=== PATIENT | male | born 1970 | race Caucasian/White ===

== ENCOUNTER 2024-03-22 03:37 | Inpatient (IN) ==
--- NOTE | 2024-03-22 03:53 | Emergency Department Note ---
Impression & Plan Acute AR ED Provider Note NAME: DANUTA FISHER AGE: 53 SEX: Male INFORMANT: Patient and EMS ED PROVIDER(S): Rusty Carson MD CHIEF COMPLAINT: Chest pain PLAN: Disposition: Admitted Outpatient prescription management: none Referral: None MEDICAL DECISION MAKING: Patient presented because of acute chest pain. EMS was concerned about ACS. Prehospital ECG was reviewed. Compared to prior and there was concerning change anteriorly. Patient was evaluated immediately upon arrival. I did review the prehospital course with EMS. Patient was still uncomfortable. He was treated with additional Zofran and fentanyl for symptom control. Nitrates were avoided due to his sildenafil use. Heart alert was initiated. Istat unremarkable. Consultation was made with Dr. Shaheed Dennison of the [facility] service. Patient was evaluated in the ER for further management. Dr. Bermudez of Inte[facility] promptly evaluated the patient in the ER. Agreed with assessment and took the patient to the clam bed laborer for further treatment. Care/management discussed with: living manager Level of care consideration(s): After review of the information above and other included data, I feel the patient requires escalation of care to admission Triage Nursing notes: reviewed and agree them. Vital Signs: reviewed and remarkable for hypertension Additional History obtained from: [employer] cardiac prehospital course as below. Chronic Medical/Social Conditions affecting care: Hypertension, tobacco abuse, diabetes Prior/ Outside/ External records reviewed: Prior PCP note from February reviewed. Hypertension, diabetes, and smoking cessation visit. Differential Diagnosis: Cardiac ischemia, aortic dissection, pulmonary embolism, pneumothorax, pneumonia, pericarditis, myocarditis, esophageal rupture, GERD, cholecystitis, pancreatitis, musculoskeletal, as well as other pathologies. Diagnostics, independently interpreted by me: ECG: Twelve-lead ECG reveals a normal sinus rhythm at [address] bpm. There is acute [address] ovation anteriorly. This is new compared to 09 November 2023. Cardiac Monitoring: Cardiac monitoring ordered by me: The patient was placed on continuous cardiac monitoring and observed. It revealed a normal sinus rhythm at 66 beats per minute without ectopy or evidence of dysrhythmia. Medical decision rules: none Imaging studies: Chest x-ray. Findings: A chest x-ray was performed and revealed no pneumothorax, effusion, infiltrate, pulmonary edema, free air under the diaphragm, or wide mediastinum. Impression: No acute disease. HPI: 53 year old Male arrives for evaluation of chest pain. This started at 0200 hrs. He described as heartburn. Rated in the left shoulder. Patient was diaphoretic. He contacted EMS. He was evaluated by EMS and an ECG was performed. They were concerned about possible ST elevation anteriorly. He was given fentanyl and aspirin. Patient does have prescription sildenafil and they avoided nitrates. Patient did admit to drinking some alcohol this evening. Patient denies cardiac history. He is a smoker. Pt denies LOC, headache, fevers, chills, visual changes, neck pain, breathing difficulties, nausea, vomiting, abdominal pain, back pain, melena, hematochezia, urinary symptoms, numbness, weakness, lymphadenopathy, rash, or other complaints.. PAST MEDICAL HISTORY: See Below, hypertension, tobacco abuse PAST SURGICAL HISTORY: See Below, SOCIAL HISTORY: See Below, drinks alcohol HOME MEDICATIONS: See Below ALLERGIES: See Below VITALS: See Below PHYSICAL EXAMINATION: GENERAL: Awake, alert, diaphoretic-appearing, in no distress HENT: Normocephalic, atraumatic. Oropharynx unremarkable. EYES: Normal conjunctiva. Sclera non-icteric. NECK: Inspection normal. Non-tender. Supple. No nuchal rigidity. FROM. No masses. RESPIRATORY: Clear to auscultation. No wheezes. No rales. Normal respiratory effort. CARDIAC: Normal rate. Normal rhythm. No murmurs. No rubs. Extremities warm and well perfused. Pulses equal. No JVD. GI: Soft, non-distended. No tenderness to palpation. No rebound or guarding. No masses. RECTAL: Deferred. MUSCULOSKELETAL: Atraumatic. Chest examination reveals no tenderness. The back is symmetrical on inspection without obvious abnormality. There is no CVA tenderness to palpation. No joint edema. LOWER EXTREMITIES: Calves are equal size bilaterally and non-tender. No edema. No discoloration. NEURO: Normal sensorium. No sensory or motor deficits noted. SKIN: No rash or jaundice noted. PROCEDURES: none CRITICAL CARE: I have personally spent 35 minutes of critical care time in the direct management of this patient. This includes bedside care, interpretation of diagnostic studies, and testing, discussion with consultants, patient, and other required patient management activities. These minutes are in excess of all separately billable procedures. OBSERVATION NOTE: none Past Med/Surg History Problem List (Updated 03/22/24 @ 11:20 by Cuong Courtney MD) Tobacco abuse CAD (coronary artery disease) STEMI (ST elevation myocardial infarction) Acute AR (Acute) Type 2 diabetes mellitus (Chronic) Chronic sinusitis (Chronic) GERD (gastroesophageal reflux disease) (Chronic) Hypertension (Chronic) Hyperlipidemia (Chronic) Sensorineural hearing loss (SNHL) of both ears (Chronic) Medical History (Updated 03/22/24 @ 11:20 by Cuong Courtney MD) Pheochromocytoma s/p resection October 2023 Surgical History History of dental surgery Family History Father Cerebral hemorrhage Hypertension Grandmother (Maternal) Diabetes Myocardial infarction Grandfather (Paternal) Myocardial infarction Denies family history of Ovarian cancer Prostate cancer Breast cancer Colorectal cancer Social History (Updated 02/29/24 @ 09:40 by Danielle Marquez LPN) Smoking Status: Current every day smoker Tobacco Type: Cigarettes Age Started Using Tobacco: 19; packs per day: 1; Cigarettes Per Day: 1 carton a week; Second Hand Exposure: Yes; Do You Dip or Chew Tobacco: No; Tobacco Cessation Education Requested by Patient: No Hx Alcohol Use: Yes Alcohol type: beer Hx Substance Use: No Preferred Language: Iraqi Communication Ability: Effective Crna Required: No Beliefs That Will Affect Care: None marital status: Current Living Situation: Alone Current Living Situation Comment: lives at home by self current occupational status: employed 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 Other Information That Helps Us Care for You: No Feels Safe at Home: Yes Safety Concerns: Feels Safe At This Time Diet: diabetic, low salt and regular caffeine: Yes Dental Care, Regularly: Yes Physical Activity Frequency: 1-2 Times per Week Seatbelt Use: always Sunscreen Use: No Assistive Devices: Denture - Upper, Denture - Lower, Glasses and Hearing Aid - Bilateral Allergies Allergies Allergy/AdvReac Type Severity Reaction Status Date / Time No Known Allergies Allergy Verified 02/29/24 09:31 Home Meds Home Medications Medication Instructions Recorded Confirmed famotidine 40 mg tablet 40 mg PO QPM 03/22/24 03/22/24 Previous Rx's Medication Instructions Recorded metformin 500 mg tablet,extended 500 mg PO DAILY #90 tabs 09/10/23 release 24 hr lisinopril 10 mg tablet 10 mg PO DAILY #90 tabs 11/06/23 doxazosin 1 mg tablet 1 mg PO QPM #30 tabs 11/13/23 pantoprazole 40 mg tablet,delayed 40 mg PO DAILY #90 tabs 11/28/23 release (Protonix) rosuvastatin 20 mg tablet 20 mg PO DAILY #90 tabs 01/31/24 sildenafil 50 mg tablet See Rx Instructions PO DAILY PRN 02/29/24 sexual activity #10 tabs varenicline 0.5 mg (11)-1 mg (42) See Rx Instructions .Route 02/29/24 tablets in a dose pack (Chantix .COMPLEX #53 ea Starting Month Box) Results & Data (ED) Vital Signs Vital Signs - 24 hr 03/22/24 03:41 03/22/24 03:41 03/22/24 03:41 Temperature 36.5 C Temperature Source Oral Pulse Rate 77 Pulse Rate from SpO2 Sensor Pulse Rhythm Respiratory Rate 18 Respiratory Effort / Characteristics Non-Labored Spontaneous Respiratory Depth Normal Blood Pressure 158/102 H Blood Pressure Mean 120 Blood Pressure Position Sitting Pulse Oximetry 94 Oxygen Delivery Method Nasal Cannula Room Air Nasal Cannula Oxygen Flow Rate 2 2 Sepsis Recent Fever Within 48 Hours No Sepsis New/Unexplained Change in Mental Status N/A Sepsis Action Taken by Nursing No Action Required 03/22/24 03:41 03/22/24 03:48 03/22/24 03:55 Temperature Temperature Source Pulse Rate 66 86 73 Pulse Rate from SpO2 Sensor Pulse Rhythm Regular Respiratory Rate 15 18 Respiratory Effort / Characteristics Respiratory Depth Blood Pressure 158/102 H Blood Pressure Mean 120 Blood Pressure Position Pulse Oximetry 96 96 Oxygen Delivery Method Nasal Cannula Nasal Cannula Oxygen Flow Rate 2 2 Sepsis Recent Fever Within 48 Hours Sepsis New/Unexplained Change in Mental Status Sepsis Action Taken by Nursing 03/22/24 04:00 Temperature Temperature Source Pulse Rate 66 Pulse Rate from SpO2 Sensor 66 Pulse Rhythm Respiratory Rate 16 Respiratory Effort / Characteristics Respiratory Depth Blood Pressure 165/114 H Blood Pressure Mean 131 Blood Pressure Position Pulse Oximetry 96 Oxygen Delivery Method Nasal Cannula Oxygen Flow Rate 2 Sepsis Recent Fever Within 48 Hours Sepsis New/Unexplained Change in Mental Status Sepsis Action Taken by Nursing Laboratory Data 03/22/24 03:45 03/22/24 03:45 Lab Results 03/22/24 03/22/24 03/22/24 Range/Units 03:45 03:50 04:39 WBC 15.49 H (4.8-10.8) K/ul RBC 5.06 (4.70-6.10) M/uL Hgb 15.9 (14.0-18.0) g/dl POC Hgb 15.3 (14.0-18.0) g/dl Hct 44.3 (42.0-52.0) % POC Hct 45 (42-52) % MCV 87.5 (80.0-100.0) fL MCH 31.4 (25.0-34.0) pg MCHC 35.9 (32.0-36.0) g/dL RDW Std Deviation 39.1 (36.4-46.3) fL RDW Coeff of Jocelin 12.3 (11.5-14.5) % Plt Count 256 (130-400) K/uL MPV 9.8 (9.4-12.4) fL Immature Gran % (Auto) 0.5 % Neut % (Auto) 71.8 % Lymph % (Auto) 18.7 % Edwards % (Auto) 7.2 % Eos % (Auto) 1.4 % Baso % (Auto) 0.4 % Neut # (Auto) 11.12 H (1.40-6.50) K/uL Lymph # (Auto) 2.90 (1.20-3.40) K/uL Edwards # (Auto) 1.12 H (0.11-0.59) K/uL Eos # (Auto) 0.21 (0.00-0.50) K/uL Baso # (Auto) 0.06 (0.00-0.20) K/uL Immature Gran # (Auto) 0.08 (0.01-0.20) K/uL PT 10.5 (9.0-12.0) Seconds INR 1.0 (0.9-1.1) APTT 25 (21-31) Seconds PTT Ratio 0.9 Activ Coag Time Kaolin 214 H (94-140) SECONDS POC Sodium 137 (135-144) mmol/L Sodium 136 (136-145) mmol/L POC Potassium 4.3 (3.3-5.0) mmol/L Potassium 4.3 (3.5-5.1) mmol/L POC Chloride 102 (101-112) mmol/L Chloride 102 (98-107) mmol/L Carbon Dioxide 26 (21-32) mmol/L POC Total CO2 25 (24-31) mmol/L Anion Gap 8 (3-11) POC Anion Gap 16.0 (16-25) mmol/L POC BUN 15 (7-18) mg/dl BUN 16 (6-23) mg/dl Creatinine 1.25 (0.6-1.4) mg/dl POC Creatinine 1.2 (0.6-1.3) mg/dl Est Cr Clr Drug Dosing 78.1 ml/min Est GFR ( Amer) 76.2 ml/min Est GFR (Non-Af Amer) 65.8 ml/min BUN/Creatinine Ratio 12.8 (10-20) Glucose 181 H (70-99(Fasting)) mg/dl POC Glucose (other) 178 H (70-99) mg/dl Calcium 9.9 (8.6-10.3) mg/dl POC Ioniz Calcium Myles 1.18 (1.12-1.32) mmol/l Phosphorus 3.8 (2.5-4.9) mg/dl Magnesium 1.9 (1.7-2.4) mg/dl Total Bilirubin 0.5 (0.2-1.0) mg/dl AST 20 (13-39) U/L ALT 17 (7-52) U/L Alkaline Phosphatase 85 (34-104) U/L Troponin I High Sens 27.5 H (0-20) pg/ml Total Protein 7.8 (6.0-8.3) gm/dl Albumin 4.9 (3.4-5.0) gm/dl Globulin 2.9 (2.5-4.0) gm/dl Albumin/Globulin Ratio 1.7 (0.9-2) Lipase 13 (11-82) U/L Ethyl Alcohol mg/dL < 10.0 (<10.0) mg/dl Administered Medications Acetaminophen (Acetaminophen 325 Mg Tab) 650 mg PO Q4H PRN PRN Reason: pain/fever Stop: 04/21/24 05:40 Last Admin: 03/22/24 16:23 Dose: 650 mg Documented By: AMS Aspirin (Aspirin 81 Mg Ectab) 81 mg PO [facility] Stop: 04/21/24 08:59 Last Admin: 03/22/24 08:25 Dose: 81 mg Documented By: SAGAR Carvedilol (Carvedilol 6.25 Mg Tab) 6.25 mg PO BIDM [facility] Stop: 04/21/24 07:59 Last Admin: 03/22/24 16:24 Dose: 6.25 mg Documented By: Admin: 03/22/24 08:25 Dose: 6.25 mg Documented By: SAGAR Insulin Aspart (Insulin Aspart Per Unit Charge) 0 units SC ACHS [facility] Stop: 04/21/24 07:29 Last Admin: 03/22/24 12:01 Dose: Not Given Documented By: Admin: 03/22/24 08:02 Dose: Not Given Documented By: SAGAR Lisinopril (Lisinopril 10 Mg Tab) 10 mg PO DAILY [facility] Stop: 04/21/24 08:59 Last Admin: 03/22/24 08:41 Dose: 10 mg Documented By: SAGAR Pantoprazole Sodium (Pantoprazole 40 Mg Tab) 40 mg PO DAILY [facility] Stop: 04/21/24 08:59 Last Admin: 03/22/24 08:26 Dose: 40 mg Documented By: SAGAR Rosuvastatin Calcium (Rosuvastatin Calcium 20 Mg Tab) 40 mg PO QAM [facility] Stop: 04/21/24 08:59 Last Admin: 03/22/24 08:25 Dose: 40 mg Documented By: SAGAR Discontinued Medications Eptifibatide (Eptifibatide 2 Mg/Ml 10 Ml Vial ([employer]ist Use Only)) Confirm Administered Dose 40 mg IV .STK-MED ONE Stop: 03/22/24 04:37 Last Admin: 03/22/24 05:06 Dose: 16 mg Documented By: MARLEY Eptifibatide (Eptifibatide 0.75 Mg/Ml 75mg Vial ([employer] Scientist Use Only)) Confirm Administered Dose 75 mg IV .STK-MED ONE Stop: 03/22/24 04:37 Last Increment: 03/22/24 05:06 Dose: 13.6 mg Documented By: MARLEY Fentanyl Citrate (Fentanyl Citrate Pf 100 Mcg/2 Ml Vial) 50 mcg IV NOW [facility] Stop: 03/22/24 03:49 Last Admin: 03/22/24 04:04 Dose: 50 mcg Documented By: BRIDGET Fentanyl Citrate (Fentanyl Citrate Pf 100 Mcg/2 Ml Vial) Confirm Administered Dose 100 mcg .ROUTE .STK-MED ONE Stop: 03/22/24 04:08 Last Increment: 03/22/24 05:20 Dose: 25 mcg Documented By: MARLEY Heparin Sodium (Porcine) (Heparin (Porcine) 1000 Unit/Ml 10 Ml ([employer]ist Use Only)) Confirm Administered Dose 10,000 units .ROUTE .STK-MED ONE Stop: 03/22/24 04:08 Last Admin: 03/22/24 05:04 Dose: 5,000 units Documented By: MARLEY Heparin Sodium/Sodium Chloride (Heparin In Nss Infusion 1000 Unit/500 Ml (2 U/Ml) Bag) Confirm Administered Dose 3,000 units IV .STK-MED ONE Stop: 03/22/24 04:08 Last Admin: 03/22/24 06:45 Dose: Not Given Documented By: [id number] Nitroglycerin/Dextrose (Nitroglycerin/D5w 100 Mcg/Ml) 250 mls @ 0 mls/hr IV .Q0M ANDREI; Protocol Stop: 04/21/24 06:29 Last Titration: 03/22/24 09:09 Dose: Infused Documented By: Titration: 03/22/24 07:18 Dose: 0 mcg/min, 0 mls/hr Documented By: [id number] Co-signed By: KATE Titration: 03/22/24 06:42 Dose: 0 mcg/min, 0 mls/hr Documented By: [id number] Admin: 03/22/24 06:20 Dose: 50 mcg/min, 30 mls/hr Documented By: [id number] Co-signed By: CLC Eptifibatide (Integrilin) 75 mg in 100 mls @ 13.477 mls/hr IV .Q7H26M ANDREI Stop: 03/22/24 11:59 Last Infusion: 03/22/24 11:54 Dose: Infused Documented By: AMS Co-signed By: ES Infusion: 03/22/24 07:18 Dose: 2 mcg/kg/min, 13.5 mls/hr Documented By: [id number] Co-signed By: JEANIES Admin: 03/22/24 06:40 Dose: 2 mcg/kg/min, 13.5 mls/hr Documented By: [id number] Co-signed By: CLC Sodium Chloride (Nss) 1,000 mls @ 100 mls/hr IV .Q10H [facility] Stop: 04/21/24 06:44 Last Infusion: 03/22/24 07:40 Dose: Infused Documented By: Admin: 03/22/24 06:00 Dose: 100 mls/hr Documented By: [id number] Magnesium Sulfate/Dextrose (Magnesium Sulfate / D5w) 1 gm in 100 mls @ 50 mls/hr IV Q2H ANDREI Stop: 03/22/24 12:14 Last Infusion: 03/22/24 12:27 Dose: Infused Documented By: Admin: 03/22/24 10:24 Dose: 50 mls/hr Documented By: Infusion: 03/22/24 10:24 Dose: Infused Documented By: Admin: 03/22/24 08:25 Dose: 50 mls/hr Documented By: SAGAR Iodixanol (Iodixanol (Visipaque) 320 Mg/Ml 100ml) Confirm Administered Dose 1 ml IV .STK-MED ONE Stop: 03/22/24 04:09 Last Admin: 03/22/24 06:44 Dose: Not Given Documented By: [id number] Ioversol (Optiray 350) Confirm Administered Dose 1 ml .ROUTE .STK-MED ONE Stop: 03/22/24 04:09 Last Admin: 03/22/24 05:23 Dose: 250 ml Documented By: [id number] Midazolam HCl (Midazolam Hcl 1 Mg/Ml 2ml Vial) Confirm Administered Dose 2 mg .ROUTE .STK-MED ONE Stop: 03/22/24 04:08 Last Increment: 03/22/24 05:21 Dose: 1 mg Documented By: MARLEY Miscellaneous (Eptifibatide (Integrilin) Infusion Stop Order) 1 each N/A TODAY@1159 ONE Stop: 03/22/24 12:00 Last Admin: 03/22/24 11:54 Dose: 1 each Documented By: SAGAR Nicardipine HCl (Nicardipine Hcl Inj 2.5 Mg/Ml 10 Ml Amp) Confirm Administered Dose 25 mg .ROUTE .STK-MED ONE Stop: 03/22/24 04:08 Last Admin: 03/22/24 05:05 Dose: 25 mg Documented By: [id number] Nitroglycerin/Dextrose (Nitroglycerin/D5w 100mcg/Ml 20ml Syr) Confirm Administered Dose 2,000 mcg .ROUTE .STK-MED ONE Stop: 03/22/24 04:09 Last Admin: 03/22/24 05:05 Dose: 2,000 mcg Documented By: [id number] Nitroglycerin/Dextrose (Nitroglycerin/D5w 100 Mcg/Ml Btl) Confirm Administered Dose 25 mg .ROUTE .STK-MED ONE Stop: 03/22/24 04:58 Last Admin: 03/22/24 05:07 Dose: 100 mcg Documented By: MARLEY Co-signed By: DEEPIKA Ondansetron HCl (Ondansetron Inj 2 Mg/Ml 2 Ml Vial) 4 mg IV NOW STA Stop: 03/22/24 03:49 Last Admin: 03/22/24 04:05 Dose: 4 mg Documented By: BRIDGET Ticagrelor (Ticagrelor 90 Mg Tab) Confirm Administered Dose 180 mg .ROUTE .STK- MED ONE Stop: 03/22/24 05:24 Last Admin: 03/22/24 05:31 Dose: 180 mg Documented By: MARLEY Imaging Data Radiologist's Impression: Chest X-Ray 03/22/24 03:48 XR chest 1V portable HISTORY: 53 years-old Male heart alert acute chest pain COMPARISON: November 09, 2023 TECHNIQUE: AP view of the chest FINDINGS: Cardiac silhouette is enlarged. Emphysema. Ill-defined right infrahilar opacities. No pneumothorax or pleural effusion. The bones appear grossly intact. Mild mid thoracic dextroscoliosis. IMPRESSION: 1. Cardiomegaly. 2. Mild right infrahilar opacities may represent pneumonia versus atelectasis. ACT 112: Negative or not required by law. The above report was generated using voice recognition software. It may contain grammatical, syntax or spelling errors. Electronically signed by: Kyle Yap M.D. 03/22/2024 8:05 AM Discharge Plan Visit Data Chief Complaint: Chest Pain Stated Complaint: Chest Pain ED Provider: Rusty Carson Discharge Problem: Acute AR Patient Disposition: Admitted As Inpatient Discharge Instructions Interventions: ED Discharge Assessment Last Done: 03/22/24 04:15
[2024-03-22 04:03] LABS: iSTAT Creatinine 1.2 mg/dl (0.6-1.3); iSTAT Hemoglobin 15.3 g/dl (14.0-18.0); iSTAT Ionized Calcium 1.18 mmol/l (1.12-1.32); iSTAT Potassium 4.3 mmol/L (3.3-5.0)
[2024-03-22 04:03] LABS: Basophils # (auto) 0.06 K/uL (0.00-0.20); Basophils % (auto) 0.4 %; Eosinophils # (auto) 0.21 K/uL (0.00-0.50); Eosinophils % (auto) 1.4 %; Hematocrit (blood only) 44.3 % (42.0-52.0); Hemoglobin 15.9 g/dl (14.0-18.0); Immature Granulocytes # (auto) 0.08 K/uL (0.01-0.20); Immature Granulocytes % (auto) 0.5 %; Lymphocytes % (auto) 18.7 %; Mean Corpuscular Hemoglobin 31.4 pg (25.0-34.0); Mean Corpuscular Hgb Conc 35.9 g/dL (32.0-36.0); Mean Corpuscular Volume 87.5 fL (80.0-100.0); Mean Platelet Volume 9.8 fL (9.4-12.4); Monocytes # (auto) 1.12 K/uL (0.11-0.59); Monocytes % (auto) 7.2 %; Neutrophils # (auto) 11.12 K/uL (1.40-6.50); Neutrophils % (auto) 71.8 %; Platelet Count 256 K/uL (130-400); RDW Coefficient of Variation 12.3 % (11.5-14.5); RDW Standard Deviation 39.1 fL (36.4-46.3); Red Blood Count 5.06 M/uL (4.70-6.10); White Blood Count 15.49 K/ul (4.8-10.8)
[2024-03-22] MEDS: fentaNYL citrate PF 100 MCG/2 ML VIAL IV STA (04:04)
[2024-03-22] MEDS: ONDANSETRON INJ 2 MG/ML 2 ML VIAL IV STA (04:05)
[2024-03-22 04:18] LABS: Albumin Globulin Ratio 1.7 (0.9-2); Albumin Level 4.9 gm/dl (3.4-5.0); BUN Creatinine Ratio 12.8 (10-20); Bilirubin,Total 0.5 mg/dl (0.2-1.0); Calcium 9.9 mg/dl (8.6-10.3); Creatinine Clr Calc Pharmacy 78.1 ml/min; Est GFR (African American) 76.2 ml/min; Est GFR (Non-African American) 65.8 ml/min; Globulin 2.9 gm/dl (2.5-4.0); Potassium 4.3 mmol/L (3.5-5.1); Total Protein 7.8 gm/dl (6.0-8.3)
[2024-03-22 04:25] LABS: Troponin I High Sensitivity 27.5 pg/ml (0-20)
[2024-03-22 04:31] LABS: Partial Thromboplastin Ratio 0.9; Partial Thromboplastin Time 25 Seconds (21-31); Prothrombin Time 10.5 Seconds (9.0-12.0)
[2024-03-22] MEDS: HEPARIN (PORCINE) 1000 UNIT/ML 10 ML (CATH LAB USE ONLY) ONE (05:04)
[2024-03-22] MEDS: niCARdipine HCL INJ 2.5 MG/ML 10 ML AMP ONE (05:05)
[2024-03-22] MEDS: NITROGLYCERIN/D5W 100MCG/ML 20ML SYR ONE (05:05)
[2024-03-22] MEDS: EPTIFIBATIDE 2 MG/ML 10 ML VIAL (CATH LAB USE ONLY) IV ONE (05:06)
[2024-03-22] MEDS: EPTIFIBATIDE 0.75 MG/ML 75MG VIAL (CATH LAB USE ONLY) IV ONE (05:06)
[2024-03-22] MEDS: NITROGLYCERIN/D5W 100 MCG/ML BTL ONE (05:07)
[2024-03-22] MEDS: fentaNYL citrate PF 100 MCG/2 ML VIAL ONE (05:20)
[2024-03-22] MEDS: MIDAZOLAM HCL 1 MG/ML 2ML VIAL ONE (05:21)
[2024-03-22] MEDS: OPTIRAY 350 ONE (05:23)
[2024-03-22] MEDS: TICAGRELOR 90 MG TAB ONE (05:31)
[2024-03-22] MEDS ORDERED: MELATONIN 3 MG TAB PO PRN (05:41)
[2024-03-22] MEDS ORDERED: POLYETHYLENE (MIRALAX) 17 GM PACK PO PRN (05:41)
--- NOTE | 2024-03-22 05:48 | History & Physical Report ---
Date of Service March 22, 2024 Assessment & Plan (1) STEMI (ST elevation myocardial infarction): Plan: Pt is a 53 yo male with PMH of HTN, pheochromocytoma (s/p resection 10/2023) and type 2 DM presenting to the ER d/t chest pain. STEMI - EKG showing new ST elevations in anterior leads; trop 27.5 - s/p cardiac cath 03/22; LAD stented - increase rosuvastatin from 20mg to 40 mg - begin aspirin 81 mg daily, brilinta 90 mg BID (s/p brilinta load), and coreg 6.25mg BID - continue lisinopril 10 mg - per cardiology; continue nitro drip for goal BP 120-140 systolic, continue integrilin drip with stop time of noon - echo ordered - admit to ICU for monitoring Type 2 DM - hold home metformin - will cover with 5u insulin glargine BID and SSI - adjust SSI as needed HTN - continue lisinopril as above GERD - continue home pantoprazole 40 mg daily Diet: heart healthy Code: full Dispo: ICU (2) Type 2 diabetes mellitus: (3) Hypertension: (4) GERD (gastroesophageal reflux disease): History of Present Illness Chief Complaint: chest pain Primary Care Provider: Jocelyne Meléndez MD Pt is a 53 yo male with PMH of HTN, pheochromocytoma (s/p resection 10/2023) and type 2 DM presenting to the ER d/t chest pain. Pt developed chest pain that felt similar to indigestion. His pain worsened and spread to his left arm/shoulder which prompted him to seek evaluation. He has never had chest pain like this before. In the ER, a heart alert was called d/t ST elevations on pt's EKG. He was emergently taken to cardiac cath. Allergies Allergy/AdvReac Type Severity Reaction Status Date / Time No Known Allergies Allergy Verified 02/29/24 09:31 Home Medications Medication Instructions Recorded Confirmed Type metformin 500 mg tablet,extended 500 mg PO DAILY #90 tabs 09/10/23 03/22/24 Rx release 24 hr lisinopril 10 mg tablet 10 mg PO DAILY #90 tabs 11/06/23 03/22/24 Rx doxazosin 1 mg tablet 1 mg PO QPM #30 tabs 11/13/23 03/22/24 Rx pantoprazole 40 mg tablet,delayed 40 mg PO DAILY #90 tabs 11/28/23 03/22/24 Rx release (Protonix) rosuvastatin 20 mg tablet 20 mg PO DAILY #90 tabs 01/31/24 03/22/24 Rx sildenafil 50 mg tablet See Rx Instructions PO DAILY PRN 02/29/24 03/22/24 Rx sexual activity #10 tabs varenicline 0.5 mg (11)-1 mg (42) See Rx Instructions .Route 02/29/24 03/22/24 Rx tablets in a dose pack (Chantix .COMPLEX #53 ea Starting Month Box) famotidine 40 mg tablet 40 mg PO QPM 03/22/24 03/22/24 History Past Med/Surg History Problem List (Updated 03/22/24 @ 11:20 by Cuong Courtney MD) Tobacco abuse CAD (coronary artery disease) STEMI (ST elevation myocardial infarction) Acute IN (Acute) Type 2 diabetes mellitus (Chronic) Chronic sinusitis (Chronic) GERD (gastroesophageal reflux disease) (Chronic) Hypertension (Chronic) Hyperlipidemia (Chronic) Sensorineural hearing loss (SNHL) of both ears (Chronic) Medical History (Updated 03/22/24 @ 11:20 by Cuong Courtney MD) Pheochromocytoma s/p resection October 2023 Surgical History History of dental surgery Family History Father Cerebral hemorrhage Hypertension Grandmother (Maternal) Diabetes Myocardial infarction Grandfather (Paternal) Myocardial infarction Denies family history of Ovarian cancer Prostate cancer Breast cancer Colorectal cancer Social History (Updated 02/29/24 @ 09:40 by Danielle Marquez LPN) Smoking Status: Current every day smoker Tobacco Type: Cigarettes Age Started Using Tobacco: 19; packs per day: 1; Cigarettes Per Day: 1 carton a week; Second Hand Exposure: Yes; Do You Dip or Chew Tobacco: No; Tobacco Cessation Education Requested by Patient: No Hx Alcohol Use: Yes Alcohol type: beer Hx Substance Use: No Preferred Language: Spanish Communication Ability: Effective Roller Inspector Required: No Beliefs That Will Affect Care: None marital status: Current Living Situation: Alone Current Living Situation Comment: lives at home by self current occupational status: employed 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 Eyes: Conjunctivae normal. Respiratory: CTA bilaterally. Non labored breathing. No rhonchi, wheezing, or crackles. Cardiovascular: RRR. No murmurs noted. No LE edema. Skin: No rashes or skin lesions noted. Neurologic: Sensation grossly intact. No FND appreciated. Psychiatric: Speech of normal pace and content. Mood and affect congruent. Results & Data Results & Data Vital Signs (Past 12 Hours) Vital Signs Temp Pulse Resp BP Pulse Ox O2 Del Method O2 Flow Rate 03/22/24 04:00 66 16 165/114 H 96 Nasal Cannula 2 03/22/24 03:55 73 18 96 Nasal Cannula 2 03/22/24 03:48 86 15 158/102 H 96 Nasal Cannula 2 03/22/24 03:41 66 03/22/24 03:41 Nasal Cannula 2 03/22/24 03:41 36.5 C 77 18 158/102 H 94 Room Air 03/22/24 03:41 Nasal Cannula 2 Critical Care Time 40 minutes Supervising Physician Co-Signing Physician Notes Attending addendum: I have physically seen this patient, have supervised the medical residents activities, and agree with the H&P unless as otherwise noted. Assessment and Plan: NSTEMI/heart alert/CAD/hypertension- The patient will be admitted to the ICU for serial cardiac enzymes, serial EKG's, cardiac rhythm monitoring and a 2-D echocardiogram with Dopplers. Patient presented with chest pain, and EKG suggestive of STEMI anteriorly Status post cardiac catheterization with 2 stents to treat long section of LAD occlusion Aspirin 81 mg daily Brilinta 90 mg p.o. twice daily after loading dose in the Plumber Pipe Fitting Increasing rosuvastatin from 20 to 40 mg daily Continue lisinopril 10 mg daily Integrilin drip to continue until noon Nitroglycerin drip as noted Consult interventional cardiology Consult gun striper Diabetes mellitus- Holding metformin Placed on glargine insulin, and Accu-Cheks with NovoLog SSI GERD- Continue pantoprazole Resident Activity Tracking Resident Involvement: Resident Care Provided Care Provided: Adult Hospital Medicine
[2024-03-22] MEDS ORDERED: DEXTROSE 50% 50 ML SYRINGE IV PRN (05:56)
[2024-03-22] MEDS ORDERED: CARBOHYDRATES FOR HYPOGLYCEMIA PO PRN (05:56)
[2024-03-22] MEDS ORDERED: GLUCOSE 40% GEL 15 GM TUBE PO PRN (05:56)
[2024-03-22] MEDS ORDERED: GLUCAGON FOR INJ 1 MG VIAL SQ PRN (05:56)
[2024-03-22] MEDS ORDERED: GLUCOSE 10 TAB/TUBE PO PRN (05:56)
--- NOTE | 2024-03-22 05:56 | Post Operative Brief Note ---
Cardiology Brief Post Op Date of Surgery March 22, 2024 Pre & Post Diagnosis Operation Date: 03/22/24 04:00 <No data on this case meets the specified criteria> Procedure Selective coronary angiography, ventriculography, angioplasty and stenting of the LAD Tenant Selector Kash Bermudez MD Hot Metal Charger Unknown Estimated Blood Loss 10 Findings Consistent with Post-Op Diagnosis The right coronary artery is codominant there is a 95% proximal stenosis, sequential 80% lesions in the mid RCA, small right dominant PDA is totally occluded and fills via [id number] collaterals. The left main is short and normal bifurcating into a type III LAD and circumflex. The proximal LAD is normal it gives off a large branching diagonal which actually takes the course of an intermediate. This vessel has been 90% stenosis at its origin. The circumflex system has an segmental 80% narrowing proximally. Immediately distal to this branch there is a 50% narrowing in the LAD followed by a second diagonal branch that has a 70% stenosis at its origin. The LAD distal to the second branch is totally occluded. The total occlusion was crossed with a BMW wire. Predilatation was performed with a 1.5 mm balloon, once antegrade flow was established the wire was positioned in the distal LAD and 2 additional inflations were performed with a 2.5 x 20 mm balloon. The lesion was sequentially stented with a 3 x 26 and 3 x 18 [place] stent. Initial CAIO flow 0 postintervention CAIO flow 3 Ventriculography in the NIEVES projection documented severe hypokinesis of the anterior lateral and apical segment EF was approximately 45% there was no mitral insufficiency. Complications none Disposition Accompanied Patient To Recovery: No Disposition: Surgical ICU (Intensive care unit) Overlapping Procedure I was immediately available: during the entire case. Supervising Physician Co-Signing Physician Notes I saw and evaluated the patient with DEMETRI Gunn, and agree with findings and plan as documented in the note. 53-year-old male admitted to hospital because of chest pain, found to have STEMI. Had stent placed in LAD At the time of examination Constitutional: No acute distress HEENT: EOMI, PERRLA Respiratory system: Good air entry bilaterally, [] wheeze, [] rhonchi, [] crackles CVS: S1-S2 positive, no murmurs or gallops Abdomen: Soft, nontender, nondistended, positive bowel sounds x4 Extremities: +2 pulses bilaterally radialis/ dorsalis pedis, no cyanosis, no edema Neuro: Awake alert oriented x3 Psych: Normal mood and affect G/U: --Prophylaxis VTE:[] GI:[] Lines:[] Diet:[] Plan: Chest x-ray from today shows pulmonary vascular congestion with increased cardiac silhouette. Avoid IV fluids given the patient already requiring 2 L oxygen at rest. Continue with dual antiplatelet therapy. Trend troponins and EKG Please note the above document was generated using voice recognition software. It may contain grammatical, syntax or spelling errors.Any formal questions or concerns about the content, text or information contained within the body of this dictation should be directly addressed to the provider for clarification. [facility] Cardiac Procedure Charge Indication for Procedure Indication for procedure: Acute anterior myocardial infarction CV Invasive Imaging Procedure 1: CV Invasive Monitoring: Cath Placement Coronary Artery W/Left
[2024-03-22] MEDS: SODIUM CHLORIDE 0.9% 1,000 ML IV SCH (06:00)
[2024-03-22] MEDS ORDERED: STAT IV Infusion **Titration per Protocol STA (06:18)
[2024-03-22] MEDS: NITROGLYCERIN/D5W 100MCG/ML 250 ML IV SCH (06:20)
[2024-03-22] MEDS ORDERED: EPTIFIBATIDE 75 MG/100 ML VIAL IV SCH (06:30)
[2024-03-22] MEDS: EPTIFIBATIDE 75 MG/100 ML VIAL IV SCH (06:40)
[2024-03-22] MEDS: IODIXANOL (VISIPAQUE) 320 MG/ML 100ML IV ONE (06:44)
--- NOTE | 2024-03-22 06:46 | Cardiac Catheterization ---
[facility] Data: Produce Wrapper Cardiac Status Clinical evaluation leading to the procedure CAD Presenation: STEMI Diagnostic Physicians Name: Kash Bermudez MD Closure Device Recommendations: None (Culprit angioplasty and stenting of the LAD) Cardiac Cath Procedure Full Procedure Date March 22, 2024 Pre-Procedure Diagnosis Pre-Procedure Diagnosis: STEMI AUC Score AUC Score: 100 Post-Procedure Diagnosis Post-Procedure Diagnosis: Severe CAD, Successful PCI and Decreased LV Systolic Function Procedure(s) Performed Procedure(s) Performed: Coronary Angiography, Left Heart Cath, LV Angiography, PTCA and Drug Eluting Stent Final Assembly Worker Kash Bermudez MD Estimated Blood Loss Estimated Blood Loss: None Medication(s) Medication(s): Aspirin, Fentanyl, Heparin, Integrilin, Lidocaine 1% and Nitroglycerin Summary of Findings The right coronary artery is codominant there is a 95% proximal stenosis, sequential 80% lesions in the mid RCA, small right dominant PDA is totally occluded and fills via [id number] collaterals. The left main is short and normal bifurcating into a type III LAD and circumflex. The proximal LAD is normal it gives off a large branching diagonal which actually takes the course of an intermediate. This vessel has been 90% stenosis at its origin. The circumflex system has an segmental 80% narrowing proximally. Immediately distal to this branch there is a 50% narrowing in the LAD followed by a second diagonal branch that has a 70% stenosis at its origin. The LAD distal to the second branch is totally occluded. The total occlusion was crossed with a BMW wire. Predilatation was performed with a 1.5 mm balloon, once antegrade flow was established the wire was positioned in the distal LAD and 2 additional inflations were performed with a 2.5 x 20 mm balloon. The lesion was sequentially stented with a 3 x 26 and 3 x 18 [place] stent. Initial CAIO flow 0 postintervention CAIO flow 3 Ventriculography in the NIEVES projection documented severe hypokinesis of the anterior lateral and apical segment EF was approximately 45% there was no mitral insufficiency. Hemodynamics Rest Ao:: 150/110 Final Ao: 102/67 LV: 115/19 Recommendations Recommendations: None (Culprit angioplasty and stenting of the LAD) Radiation Exposure (mGy) 5111 mGy DAP 383.95 Contrast (mls) 250 Procedural Complication(s) None Disposition ICU I attest to the content of the Intraoperative Record and any orders documented therein. Any exceptions are noted below. PG Care Time/CCT Total # of Minutes Spent Total Time Spent with Patient: Total time spent is greater than 50% in coordination of care (as documented) at patient's floor/unit and/or counseling patient:
--- NOTE | 2024-03-22 06:47 | Post Operative Brief Note ---
Cardiology Brief Post Op Date of Surgery March 22, 2024 Pre & Post Diagnosis Acute MT Operation Date: 03/22/24 04:00 <No data on this case meets the specified criteria> Procedure Cardiac cath Rail Signal Mechanic Kash Bermudez MD Volunteer Specialist Unknown Estimated Blood Loss 15 Findings Consistent with Post-Op Diagnosis Disposition Accompanied Patient To Recovery: No Disposition: Surgical ICU Overlapping Procedure I was immediately available: during the entire case. Supervising Physician Co-Signing Physician Notes I saw and evaluated the patient with DEMETRI Gunn, and agree with findings and plan as documented in the note. 53-year-old male admitted to hospital because of chest pain, found to have STEMI. Had stent placed in LAD At the time of examination Constitutional: No acute distress HEENT: EOMI, PERRLA Respiratory system: Good air entry bilaterally, [] wheeze, [] rhonchi, [] crackles CVS: S1-S2 positive, no murmurs or gallops Abdomen: Soft, nontender, nondistended, positive bowel sounds x4 Extremities: +2 pulses bilaterally radialis/ dorsalis pedis, no cyanosis, no edema Neuro: Awake alert oriented x3 Psych: Normal mood and affect G/U: --Prophylaxis VTE:[] GI:[] Lines:[] Diet:[] Plan: Chest x-ray from today shows pulmonary vascular congestion with increased car diac silhouette. Avoid IV fluids given the patient already requiring 2 L oxygen at rest. Continue with dual antiplatelet therapy. Trend troponins and EKG Please note the above document was generated using voice recognition software. It may contain grammatical, syntax or spelling errors.Any formal questions or concerns about the content, text or information contained within the body of this dictation should be directly addressed to the provider for clarification.
--- NOTE | 2024-03-22 06:50 | Post Operative Brief Note ---
Cardiology Brief Post Op Date of Surgery March 22, 2024 Pre & Post Diagnosis Acute SC Operation Date: 03/22/24 04:00 <No data on this case meets the specified criteria> Procedure cardiac cath Geographic Area Intelligence Officer Kash Bermudez MD Fish Technologist Unknown Estimated Blood Loss 10 Findings Consistent with Post-Op Diagnosis Disposition Accompanied Patient To Recovery: No Disposition: Surgical ICU Overlapping Procedure I was immediately available: during the entire case. Supervising Physician Co-Signing Physician Notes I saw and evaluated the patient with DEMETRI Gunn, and agree with findings and plan as documented in the note. 53-year-old male admitted to hospital because of chest pain, found to have STEMI. Had stent placed in LAD At the time of examination Constitutional: No acute distress HEENT: EOMI, PERRLA Respiratory system: Good air entry bilaterally, [] wheeze, [] rhonchi, [] crackles CVS: S1-S2 positive, no murmurs or gallops Abdomen: Soft, nontender, nondistended, positive bowel sounds x4 Extremities: +2 pulses bilaterally radialis/ dorsalis pedis, no cyanosis, no edema Neuro: Awake alert oriented x3 Psych: Normal mood and affect G/U: --Prophylaxis VTE:[] GI:[] Lines:[] Diet:[] Plan: Chest x-ray from today shows pulmonary vascular congestion with increased car diac silhouette. Avoid IV fluids given the patient already requiring 2 L oxygen at rest. Continue with dual antiplatelet therapy. Trend troponins and EKG Please note the above document was generated using voice recognition software. It may contain grammatical, syntax or spelling errors.Any formal questions or concerns about the content, text or information contained within the body of this dictation should be directly addressed to the provider for clarification.
--- NOTE | 2024-03-22 07:05 | Critical Care Consultation ---
Date of Consultation March 22, 2024 Assessment & Plan (1) STEMI (ST elevation myocardial infarction): (2) Hyperlipidemia: Continue Statin (3) GERD (gastroesophageal reflux disease): Continue PPI (4) Type 2 diabetes mellitus: Plan --STEMI Patient with EKG showing ST elevation in the anterior leads with associated chest pain. Now s/p catheterization with successful PCI and SANCHEZ x 2 to the LAD. Admitted to ICU post cath for further monitoring and management. - TTE pending - On Integrilin drip - ASA, Brilinta, statin, lisinopril, BB - Trend troponin for peak - Follow-up cardiology recommendations -Continuous monitoring telemetry -- Acute hypoxic respiratory failure Likely secondary to pulmonary edema from underlying STEMI Will consider diuretics -- DM - II Continue sliding scale/basal bolus. ICU hyperglycemic protocol --Dyslipidemia Continue with statin Supervising Physician Co-Signing Physician Notes I saw and evaluated the patient with DEMETRI Gunn, and agree with findings and plan as documented in the note. 53-year-old male admitted to hospital because of chest pain, found to have STEMI. Had stent placed in LAD At the time of examination patient's systolic blood pressure was 115 Nitroglycerin has been off since 630-6:45 AM, heart rate was in the low 80s to high 90s. Was saturating 99% on 2 L nasal cannula, I went down to half a liter Denies any chest pain complains of some chest heaviness which is way better compared to when he came to the hospital Denies any nausea vomiting No headache, no blurry vision Patient's son was in the room at the time of examination Social history: > 24-vwns-lnvs smoking history, currently smoking a pack a day Constitutional: No acute distress HEENT: EOMI, PERRLA Respiratory system: Decreased air entry bilaterally, no wheeze, no rhonchi, positive crackles bilateral lower lobe CVS: S1-S2 positive, no murmurs or gallops Abdomen: Soft, nontender, nondistended, positive bowel sounds x4 Extremities: +2 pulses bilaterally radialis/ dorsalis pedis, no cyanosis, no edema Neuro: Awake alert oriented x3 Psych: Normal mood and affect G/U: No Onofre --Prophylaxis VTE: IPC GI: Pantoprazole Lines: Peripheral Diet: Cardiac Plan: Chest x-ray from today shows pulmonary vascular congestion with increased cardiac silhouette. Avoid IV fluids given the patient already requiring 2 L oxygen at rest. Will consider diuretics if the patient is hypoxic Continue with dual antiplatelet therapy. Trend troponins and EKG Magnesium being replaced DC nitro drip given that the patient's blood pressure is acceptable range right now Please note the above document was generated using voice recognition software. It may contain grammatical, syntax or spelling errors.Any formal questions or concerns about the content, text or information contained within the body of this dictation should be directly addressed to the provider for clarification. History of Present Illness Attending Physician: Shaheed Dennison MD History of Present Illness Patient is a 53-year-old male with past medical history significant for pheochromocytoma (s/p resection 10/31), DM type II, HTN, who presented to the emergency department earlier this evening with chest pain radiating to the left arm and associated shortness of breath and diaphoresis. EKG revealed anterior ST elevation, and he was taken emergently to [facility]. Patient was found to have occlusion of the LAD and received PCI with SANCHEZ x 2 to the LAD. He now presents to the ICU for further monitoring. On arrival to the ICU the patient is alert and oriented and hemodynamically stable without acute distress. He denies any headache, dizziness, syncope, recent illness or fevers, cough or congestion, further chest pain or shortness of breath, palpitations, abdominal pain, nausea vomiting or diarrhea, swelling in hands or feet, changes in gait. Allergies Allergy/AdvReac Type Severity Reaction Status Date / Time No Known Allergies Allergy Verified 02/29/24 09:31 Home Medications Medication Instructions Recorded Confirmed Type metformin 500 mg tablet,extended 500 mg PO DAILY #90 tabs 09/10/23 02/29/24 Rx release 24 hr lisinopril 10 mg tablet 10 mg PO DAILY #90 tabs 11/06/23 02/29/24 Rx doxazosin 1 mg tablet 1 mg PO QPM #30 tabs 11/13/23 02/29/24 Rx pantoprazole 40 mg tablet,delayed 40 mg PO DAILY #90 tabs 11/28/23 02/29/24 Rx release (Protonix) rosuvastatin 20 mg tablet 20 mg PO DAILY #90 tabs 01/31/24 02/29/24 Rx sildenafil 50 mg tablet See Rx Instructions PO DAILY PRN 02/29/24 02/29/24 Rx sexual activity #10 tabs varenicline 0.5 mg (11)-1 mg (42) See Rx Instructions .Route 02/29/24 02/29/24 Rx tablets in a dose pack (Chantix .COMPLEX #53 ea Starting Month Box) Patient History Medical History (Updated 03/22/24 @ 05:50 by Annette Astudillo DO) Pheochromocytoma s/p resection October 2023 Surgical History History of dental surgery Family History Father Cerebral hemorrhage Hypertension Grandmother (Maternal) Diabetes Myocardial infarction Grandfather (Paternal) Myocardial infarction Denies family history of Ovarian cancer Prostate cancer Breast cancer Colorectal cancer Social History (Updated 02/29/24 @ 09:40 by Danielle Marquez LPN) Smoking Status: Current every day smoker Tobacco Type: Cigarettes Age Started Using Tobacco: 19; packs per day: 1; Cigarettes Per Day: 1 carton a week; Second Hand Exposure: Yes; Do You Dip or Chew Tobacco: No; Tobacco Cessation Education Requested by Patient: No Hx Alcohol Use: Yes Alcohol type: beer Hx Substance Use: No Preferred Language: Belarusian Communication Ability: Effective Roguer Required: No Beliefs That Will Affect Care: None marital status: Current Living Situation: Alone Current Living Situation Comment: lives at home by self current occupational status: employed 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 Other Information That Helps Us Care for You: No Feels Safe at Home: Yes Safety Concerns: Feels Safe At This Time Diet: diabetic, low salt and regular caffeine: Yes Dental Care, Regularly: Yes Physical Activity Frequency: 1-2 Times per Week Seatbelt Use: always Sunscreen Use: No Assistive Devices: Denture - Upper, Denture - Lower, Glasses and Hearing Aid - Bilateral Review of Systems 2 Review of Systems: All systems reviewed & are unremarkable except as noted in HPI & below Physical Exam 2 Constitutional: cooperative and comfortable Eyes: PERRL, conjunctivae normal, anicteric sclerae ENMT: external ear and nose normal, oropharynx normal Neck: trachea midline, no thyromegaly Respiratory: normal respiratory effort, lungs clear to auscultation Cardiovascular: RRR, no murmur, no edema Heart Sounds: normal S1 and normal S2; no murmur Gastrointestinal (Abdomen): normal bowel sounds, soft, nontender, no hepatosplenomegaly Musculoskeletal: no cyanosis or clubbing, extremities motor strength 5/5 Skin: no rashes, warm and dry Neurologic: PERRL, EOMI, accommodation nl, no face palsy, no dysarthria Psychiatric: A+Ox3, euthymic affect Results & Data Results & Data Vital Signs (Past 12 Hours) Vital Signs Temp Pulse Pulse Resp BP BP Pulse Ox 03/22/24 06:45 92 H 15 98 03/22/24 06:45 109/73 03/22/24 06:40 107/74 03/22/24 06:39 95 H 16 98 03/22/24 06:27 85 14 99 03/22/24 06:25 105/70 03/22/24 06:15 104/63 03/22/24 06:01 36.5 C 86 16 94/69 L 94 03/22/24 05:57 96 H 16 95 03/22/24 05:51 83 19 95 03/22/24 05:49 94/69 L 03/22/24 04:00 66 16 165/114 H 96 03/22/24 03:55 73 18 96 03/22/24 03:48 86 15 158/102 H 96 03/22/24 03:41 66 03/22/24 03:41 03/22/24 03:41 36.5 C 77 18 158/102 H 94 03/22/24 03:41 O2 Del Method O2 Flow Rate 03/22/24 06:45 03/22/24 06:45 03/22/24 06:40 03/22/24 06:39 03/22/24 06:27 03/22/24 06:25 03/22/24 06:15 03/22/24 06:01 Nasal Cannula 4 03/22/24 05:57 03/22/24 05:51 03/22/24 05:49 03/22/24 04:00 Nasal Cannula 2 03/22/24 03:55 Nasal Cannula 2 03/22/24 03:48 Nasal Cannula 2 03/22/24 03:41 03/22/24 03:41 Nasal Cannula 2 03/22/24 03:41 Room Air 03/22/24 03:41 Nasal Cannula 2 Laboratory Results 03/22/24 03:45 03/22/24 03:45 Coding Level of Care Code 09145 IN/OBS CONSULT LVL 4,60M Diagnoses STEMI (ST elevation myocardial infarction) I21.3 Hyperlipidemia E78.5 GERD (gastroesophageal reflux disease) K21.9 Type 2 diabetes mellitus E11.9
--- NOTE | 2024-03-22 07:22 | Electrocardiogram Report ---
Test Reason : Blood Pressure : / mmHG Vent. Rate : 065 BPM Atrial Rate : 065 BPM P-R Int : 148 ms QRS Dur : 090 ms QT Int : 376 ms P-R-T Axes : 060 050 000 degrees QTc Int : 391 ms Normal sinus rhythm with sinus arrhythmia Anteroseptal infarct (cited on or before 09-NOV-2023) ACUTE [place] / STEMI Abnormal ECG When compared with ECG of 09-NOV-2023 22:59, Vent. rate has decreased BY 41 BPM Non-specific change in ST segment in Inferior leads ST elevation now present in Anterior leads Confirmed by Cuong Courtney ([id number]) on 03/22/2024 7:22:05 AM Referred By: REFERRED SELF Confirmed By:Elliot Courtney
[2024-03-22 07:57] LABS: Magnesium 1.9 mg/dl (1.7-2.4); Phosphorus 3.8 mg/dl (2.5-4.9)
[2024-03-22] MEDS: INSULIN ASPART PER UNIT CHARGE SC SCH (08:02)
--- NOTE | 2024-03-22 08:07 | XRay Report ---
XR chest 1V portable HISTORY: 53 years-old Male heart alert acute chest pain COMPARISON: November 09, 2023 TECHNIQUE: AP view of the chest FINDINGS: Cardiac silhouette is enlarged. Emphysema. Ill-defined right infrahilar opacities. No pneumothorax or pleural effusion. The bones appear grossly intact. Mild mid thoracic dextroscoliosis. IMPRESSION: 1. Cardiomegaly. 2. Mild right infrahilar opacities may represent pneumonia versus atelectasis. ACT 112: Negative or not required by law. The above report was generated using voice recognition software. It may contain grammatical, syntax o r spelling errors. Electronically signed by: Kyle Yap M.D. 03/22/2024 8:05 AM
[2024-03-22] MEDS: ROSUVASTATIN CALCIUM 20 MG TAB PO SCH (08:25)
[2024-03-22] MEDS: MAGNESIUM SULFATE / D5W 1 GM/100 ML BAG IV SCH (08:25)
[2024-03-22] MEDS: ASPIRIN 81 MG ECTAB PO SCH (08:25)
[2024-03-22] MEDS: carvediloL 6.25 MG TAB PO SCH (08:25)
[2024-03-22] MEDS: PANTOprazole 40 MG TAB PO SCH (08:26)
[2024-03-22] MEDS: lisinopril 10 MG TAB PO SCH (08:41)
[2024-03-22] MEDS ORDERED: LANTUS PER UNIT CHARGE SQ SCH (09:00)
--- NOTE | 2024-03-22 11:05 | Cardiology Consultation ---
Date of Consultation March 22, 2024 Assessment & Plan (1) STEMI (ST elevation myocardial infarction): (2) CAD (coronary artery disease): (3) Tobacco abuse: Plan 1. Acute anterior myocardial infarction: Patient had a occlusion of the mid LAD. He underwent successful percutaneous intervention. Symptoms have improved. Hemodynamically stable. Will initiate medical therapy with dual anti-platelet therapy, carvedilol, lisinopril and high-dose rosuvastatin. Plan dual anti-platelet therapy for 1 year. Consider transition to Plavix after 1 month of Brilinta. Address ongoing cardiac risk factors to include hypertension, diabetes and tobacco abuse. Plan for cardiac rehab. 2. Coronary disease: In addition to his acute coronary syndrome, the patient has severe coronary disease involving the ostial circumflex, ostial D1 and total occlusion of the right coronary artery. Will obtain an echocardiogram today to determine if more aggressive revascularization would be beneficial. Up until last night he was not describing symptoms of angina which would be a different indication for additional revascularization. As noted above continued aggressive risk factor modification and medical therapy will be initiated. 3. Tobacco abuse: Patient will be counseled regarding the need to quit. 4. Hyperlipidemia: LDL was 90 in February of this year. Rosuvastatin dose doubled. History of Present Illness Reason for Consultation: Acute HI Requesting Physician: Rafaela Attending Physician: Nito Russo MD History of Present Illness The patient is a 53-year-old gentleman with a history of pheochromocytoma, diabetes mellitus, hypertension and tobacco abuse who developed the acute onset of indigestion in the precordium and epigastrium last evening around 2:00 a.m.. Patient has been feeling well up until that point. His symptoms also involved discomfort in the left arm and neck. He had some associated dyspnea. No nausea. No overt diaphoresis. He denies dizziness or lightheadedness. No sense of palpitation. Based on the nature of his symptoms he was advised to go to the emergency room and was transported there via ambulance. He was discovered to have evidence of an acute myocardial infarction brought emergently to the catheterization suite where he was discovered to have severe 3 vessel coronary disease with what appeared to be an acute occlusion of the mid LAD. He underwent successful intervention on the mid LAD and was transported to the ICU for further care. Patient states that leading up to this event he has not had significant exertional symptoms. He did report a history of indigestion, but this did not involve other symptoms and as he describes it simply came and went without any intervention. This appears have been present for several years and fairly mild in character overall. Claims be an active individual and is able to [place], at [employer], as an stairs and perform routine activity without limitation. At the time of this interview he reports good feeling in the right hand. No pain in the right arm. Some discomfort in the right precordium that he describes as muscular. This is worse with movement or deep inspiration. Symptoms of indigestion are no longer present. No breathing difficulty currently. A feeling tired. Allergies Allergy/AdvReac Type Severity Reaction Status Date / Time No Known Allergies Allergy Verified 02/29/24 09:31 Home Medications Medication Instructions Recorded Confirmed Type metformin 500 mg tablet,extended 500 mg PO DAILY #90 tabs 09/10/23 02/29/24 Rx release 24 hr lisinopril 10 mg tablet 10 mg PO DAILY #90 tabs 11/06/23 02/29/24 Rx doxazosin 1 mg tablet 1 mg PO QPM #30 tabs 11/13/23 02/29/24 Rx pantoprazole 40 mg tablet,delayed 40 mg PO DAILY #90 tabs 11/28/23 02/29/24 Rx release (Protonix) rosuvastatin 20 mg tablet 20 mg PO DAILY #90 tabs 01/31/24 02/29/24 Rx sildenafil 50 mg tablet See Rx Instructions PO DAILY PRN 02/29/24 02/29/24 Rx sexual activity #10 tabs varenicline 0.5 mg (11)-1 mg (42) See Rx Instructions .Route 02/29/24 02/29/24 Rx tablets in a dose pack (Chantix .COMPLEX #53 ea Starting Month Box) Patient History Medical History (Updated 03/22/24 @ 11:20 by Cuong Courtney MD) Pheochromocytoma s/p resection October 2023 Surgical History History of dental surgery Family History Father Cerebral hemorrhage Hypertension Grandmother (Maternal) Diabetes Myocardial infarction Grandfather (Paternal) Myocardial infarction Denies family history of Ovarian cancer Prostate cancer Breast cancer Colorectal cancer Social History (Updated 02/29/24 @ 09:40 by Danielle Marquez LPN) Smoking Status: Current every day smoker Tobacco Type: Cigarettes Age Started Using Tobacco: 19; packs per day: 1; Cigarettes Per Day: 1 carton a week; Second Hand Exposure: Yes; Do You Dip or Chew Tobacco: No; Tobacco Cessation Education Requested by Patient: No Hx Alcohol Use: Yes Alcohol type: beer Hx Substance Use: No Preferred Language: Cambodian Communication Ability: Effective Business Attorney Required: No Beliefs That Will Affect Care: None marital status: Current Living Situation: Alone Current Living Situation Comment: lives at home by self current occupational status: employed 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 Physical Exam Physical Exam: The patient is alert and oriented. Mood and affect appeared normal. He answered all questions appropriately. HEENT: Pupils are equal and reactive to light and accommodation. Extraocular movements are intact. The sclerae are anicteric. Neuro: Cranial nerves intact Lungs: Clear to auscultation bilaterally. He has good air movement without use of accessory muscles. No rales wheezes or rhonchi. Cardiac: Heart demonstrates a regular rhythm. Normal rate. Normal S1 and S2. No murmurs on examination. Pulses: The patient has palpable radial pulses bilaterally that are equal in intensity. Good perfusion of the right hand. Extremities: There was no evidence of hypoperfusion. There is no cyanosis or clubbing. There is no edema. Skin: I did not appreciate any rashes on examination today. Results & Data Vital Signs (Past 12 Hours) Vital Signs Temp Pulse Pulse Resp BP BP Pulse Ox 03/22/24 09:03 03/22/24 09:00 03/22/24 08:15 128/85 03/22/24 08:05 132/86 03/22/24 08:00 76 18 99 03/22/24 07:57 74 17 99 03/22/24 07:35 113/79 03/22/24 07:33 75 14 98 03/22/24 07:32 77 03/22/24 07:30 73 15 99 03/22/24 07:30 110/74 03/22/24 07:24 74 20 99 03/22/24 07:15 93/73 L 03/22/24 07:12 100 H 17 99 03/22/24 07:09 99 03/22/24 07:07 85 03/22/24 07:00 78 16 99 03/22/24 07:00 115/73 03/22/24 06:51 03/22/24 06:45 92 H 15 98 03/22/24 06:45 109/73 03/22/24 06:40 107/74 03/22/24 06:39 95 H 16 98 03/22/24 06:30 36.4 C L 03/22/24 06:27 85 14 99 03/22/24 06:25 105/70 03/22/24 06:15 104/63 03/22/24 06:01 36.5 C 86 16 94/69 L 94 03/22/24 05:57 96 H 16 95 03/22/24 05:51 83 19 95 03/22/24 05:49 94/69 L 03/22/24 04:00 66 16 165/114 H 96 03/22/24 03:55 73 18 96 03/22/24 03:48 86 15 158/102 H 96 03/22/24 03:41 66 03/22/24 03:41 03/22/24 03:41 36.5 C 77 18 158/102 H 94 03/22/24 03:41 O2 Del Method O2 Flow Rate 03/22/24 09:03 Nasal Cannula 03/22/24 09:00 Nasal Cannula 1 03/22/24 08:15 03/22/24 08:05 03/22/24 08:00 03/22/24 07:57 03/22/24 07:35 03/22/24 07:33 03/22/24 07:32 03/22/24 07:30 03/22/24 07:30 03/22/24 07:24 03/22/24 07:15 03/22/24 07:12 03/22/24 07:09 Nasal Cannula 4 03/22/24 07:07 03/22/24 07:00 03/22/24 07:00 03/22/24 06:51 Nasal Cannula 2 03/22/24 06:45 03/22/24 06:45 03/22/24 06:40 03/22/24 06:39 03/22/24 06:30 03/22/24 06:27 03/22/24 06:25 03/22/24 06:15 03/22/24 06:01 Nasal Cannula 4 03/22/24 05:57 03/22/24 05:51 03/22/24 05:49 03/22/24 04:00 Nasal Cannula 2 03/22/24 03:55 Nasal Cannula 2 03/22/24 03:48 Nasal Cannula 2 03/22/24 03:41 03/22/24 03:41 Nasal Cannula 2 03/22/24 03:41 Room Air 03/22/24 03:41 Nasal Cannula 2 Laboratory Results Abnormal Lab Results 03/22/24 03/22/24 03/22/24 03:45 03:50 04:39 WBC 15.49 H RBC 5.06 Hgb 15.9 POC Hgb 15.3 Hct 44.3 POC Hct 45 MCV 87.5 MCH 31.4 MCHC 35.9 RDW Std Deviation 39.1 RDW Coeff of Jocelin 12.3 Plt Count 256 MPV 9.8 Immature Gran % (Auto) 0.5 Neut % (Auto) 71.8 Lymph % (Auto) 18.7 [place] % (Auto) 7.2 Eos % (Auto) 1.4 Baso % (Auto) 0.4 Neut # (Auto) 11.12 H Lymph # (Auto) 2.90 [place] # (Auto) 1.12 H Eos # (Auto) 0.21 Baso # (Auto) 0.06 Immature Gran # (Auto) 0.08 PT 10.5 INR 1.0 APTT 25 PTT Ratio 0.9 Activ Coag Time Kaolin 214 H POC Sodium 137 Sodium 136 POC Potassium 4.3 Potassium 4.3 POC Chloride 102 Chloride 102 Carbon Dioxide 26 POC Total CO2 25 Anion Gap 8 POC Anion Gap 16.0 POC BUN 15 BUN 16 Creatinine 1.25 POC Creatinine 1.2 Est Cr Clr Drug Dosing 78.1 Est GFR ( Amer) 76.2 Est GFR (Non-Af Amer) 65.8 BUN/Creatinine Ratio 12.8 Glucose 181 H POC Glucose POC Glucose (other) 178 H Calcium 9.9 POC Ioniz Calcium Myles 1.18 Phosphorus 3.8 Magnesium 1.9 Total Bilirubin 0.5 AST 20 ALT 17 Alkaline Phosphatase 85 Troponin I High Sens 27.5 H Total Protein 7.8 Albumin 4.9 Globulin 2.9 Albumin/Globulin Ratio 1.7 Lipase 13 Ethyl Alcohol mg/dL < 10.0 03/22/24 03/22/24 06:04 07:45 WBC RBC Hgb POC Hgb Hct POC Hct MCV MCH MCHC RDW Std Deviation RDW Coeff of Jocelin Plt Count MPV Immature Gran % (Auto) Neut % (Auto) Lymph % (Auto) [place] % (Auto) Eos % (Auto) Baso % (Auto) Neut # (Auto) Lymph # (Auto) Refugio # (Auto) Eos # (Auto) Baso # (Auto) Immature Gran # (Auto) PT INR APTT PTT Ratio Activ Coag Time Kaolin POC Sodium Sodium POC Potassium Potassium POC Chloride Chloride Carbon Dioxide POC Total CO2 Anion Gap POC Anion Gap POC BUN BUN Creatinine POC Creatinine Est Cr Clr Drug Dosing Est GFR ( Amer) Est GFR (Non-Af Amer) BUN/Creatinine Ratio Glucose POC Glucose 140 H POC Glucose (other) Calcium POC Ioniz Calcium Myles Phosphorus Magnesium Total Bilirubin AST ALT Alkaline Phosphatase Troponin I High Sens 06365.3 H* D Total Protein Albumin Globulin Albumin/Globulin Ratio Lipase Ethyl Alcohol mg/dL Diagnostic Findings Obtained the time of admission revealed cardiomegaly and a mild right infrahilar opacity. Cardiac catheterization 03/22/2024: Acute occlusion of the mid LAD after the 2nd diagonal. Chronic total occlusion of the right coronary artery with filling via [id number] collaterals. 90% stenosis at D1. 80% proximal left circumflex stenosis. PG Care Time/CCT Total # of Minutes Spent Total Time Spent with Patient: Total time spent is greater than 50% in coordination of care (as documented) at patient's floor/unit and/or counseling patient: Coding Level of Care Code 08036 IN/OBS CONSULT LVL 4,60M Diagnoses STEMI (ST elevation myocardial infarction) I21.3 CAD (coronary artery disease) I25.10 Tobacco abuse Z72.0
--- NOTE | 2024-03-22 12:21 | Hospitalist Progress Note ---
Date of Service March 22, 2024 Assessment & Plan (1) STEMI (ST elevation myocardial infarction): Plan: He presented with anterior wall [place]. He underwent emergent left heart catheterization with PTCA and stenting of the LAD. He has underlying triple- vessel coronary artery disease. Cardiology consultation and recommendations appreciated. Medical management for now. (2) CAD (coronary artery disease): Plan: Triple-vessel coronary artery disease noted on cardiac catheterization. Medical management for now. Cardiac echo ordered and pending (3) Type 2 diabetes mellitus: Plan: He is insulin rex. Scheduled new Lantus dosing has been discontinued. Metformin is currently on hold. The risk here is hypoglycemia, not mild hyperglycemia. Sliding scale coverage for now (4) Hypertension: Plan: Stable. Continue current medical management (5) Tobacco abuse: Plan: Smoking cessation highly recommended Plan Hopeful discharge to home within the next day or 2 Admission and Anticipated Discharge Date Admission Date: March 22, 2024 Subjective The patient is asleep at the time of my examination. Multiple family members are present. Cardiology entry noted. He is insulin rex and scheduled Lantus dose has been discontinued. The risk care is hypoglycemia, not mild hyperglycemia. Cardiac echo report is pending. Vital signs are stable. Repeat EKG reveals normal sinus rhythm with anterior ST elevation and QS waves now evident in V1 through V3 Review of Systems 2 Review of Systems: The patient is asleep and unable to answer any questions regarding review of systems at this time Physical Exam 2 Physical Exam: General-somnolent. No fever HEENT-head atraumatic and normocephalic Neck-no lymphadenopathy or thyromegaly, trachea midline Chest-clear to auscultation. No rales, wheezing or rhonchi Cardiac-regular rate and rhythm, normal S1 and S2 Abdomen-normal bowel sounds, no hepatosplenomegaly Extremities-no cyanosis, clubbing, or edema Neuro-sleeping. Cannot assess Psychsleeping. Cannot assess Results & Data Results & Data Vital Signs (Past 12 Hours) Vital Signs Temp Pulse Pulse Resp BP BP Pulse Ox 03/22/24 09:03 03/22/24 09:00 03/22/24 08:15 128/85 03/22/24 08:05 132/86 03/22/24 08:00 76 18 99 03/22/24 07:57 74 17 99 03/22/24 07:35 113/79 03/22/24 07:33 75 14 98 03/22/24 07:32 77 03/22/24 07:30 73 15 99 03/22/24 07:30 110/74 03/22/24 07:24 74 20 99 03/22/24 07:15 93/73 L 03/22/24 07:12 100 H 17 99 03/22/24 07:09 99 03/22/24 07:07 85 03/22/24 07:00 78 16 99 03/22/24 07:00 115/73 03/22/24 06:51 03/22/24 06:45 92 H 15 98 03/22/24 06:45 109/73 03/22/24 06:40 107/74 03/22/24 06:39 95 H 16 98 03/22/24 06:30 36.4 C L 03/22/24 06:27 85 14 99 03/22/24 06:25 105/70 03/22/24 06:15 104/63 03/22/24 06:01 36.5 C 86 16 94/69 L 94 03/22/24 05:57 96 H 16 95 03/22/24 05:51 83 19 95 03/22/24 05:49 94/69 L 03/22/24 04:00 66 16 165/114 H 96 03/22/24 03:55 73 18 96 03/22/24 03:48 86 15 158/102 H 96 03/22/24 03:41 66 03/22/24 03:41 03/22/24 03:41 36.5 C 77 18 158/102 H 94 03/22/24 03:41 O2 Del Method O2 Flow Rate 03/22/24 09:03 Nasal Cannula 03/22/24 09:00 Nasal Cannula 1 03/22/24 08:15 03/22/24 08:05 03/22/24 08:00 03/22/24 07:57 03/22/24 07:35 03/22/24 07:33 03/22/24 07:32 03/22/24 07:30 03/22/24 07:30 03/22/24 07:24 03/22/24 07:15 03/22/24 07:12 03/22/24 07:09 Nasal Cannula 4 03/22/24 07:07 03/22/24 07:00 03/22/24 07:00 03/22/24 06:51 Nasal Cannula 2 03/22/24 06:45 03/22/24 06:45 03/22/24 06:40 03/22/24 06:39 03/22/24 06:30 03/22/24 06:27 03/22/24 06:25 03/22/24 06:15 03/22/24 06:01 Nasal Cannula 4 03/22/24 05:57 03/22/24 05:51 03/22/24 05:49 03/22/24 04:00 Nasal Cannula 2 03/22/24 03:55 Nasal Cannula 2 03/22/24 03:48 Nasal Cannula 2 03/22/24 03:41 03/22/24 03:41 Nasal Cannula 2 03/22/24 03:41 Room Air 03/22/24 03:41 Nasal Cannula 2 Laboratory Results 03/22/24 03:45 03/22/24 03:45 PG Care Time/CCT Total # of Minutes Spent Total Time Spent with Patient: Total time spent is greater than 50% in coordination of care (as documented) at patient's floor/unit and/or counseling patient: Coding Level of Care Code 81953 SUB INP/OBS CARE 3/50MIN Diagnoses STEMI (ST elevation myocardial infarction) I21.3 CAD (coronary artery disease) I25.10 Type 2 diabetes mellitus E11.9 Hypertension I10 Tobacco abuse Z72.0
[2024-03-22] MEDS: ACETAMINOPHEN 325 MG TAB PO PRN (16:23)
--- NOTE | 2024-03-22 16:34 | XCELERA ---
[id number] \\[id number]
--- NOTE | 2024-03-22 17:50 | Electrocardiogram Report ---
Test Reason : Blood Pressure : / mmHG Vent. Rate : 077 BPM Atrial Rate : 077 BPM P-R Int : 142 ms QRS Dur : 080 ms QT Int : 350 ms P-R-T Axes : 038 077 068 degrees QTc Int : 396 ms Sinus rhythm with occasional Premature ventricular complexes Anteroseptal infarct (cited on or before 09-NOV-2023) Abnormal ECG When compared with ECG of 22-MAR-2024 03:41, Premature ventricular complexes are now Present Non-specific change in ST segment in Inferior leads ST elevation now present in Lateral leads Confirmed by Cuong Courtney ([id number] on 03/22/2024 5:50:17 PM Referred By: REFERRED SELF Confirmed By:Elliot Courtney
[2024-03-22] MEDS: ONDANSETRON INJ 2 MG/ML 2 ML VIAL IV PRN (19:50)
[2024-03-22] MEDS: TICAGRELOR 90 MG TAB PO SCH (20:24)
[2024-03-23 04:42] LABS: Hematocrit (blood only) 41.3 % (42.0-52.0); Hemoglobin 14.9 g/dl (14.0-18.0); Mean Corpuscular Hemoglobin 31.6 pg (25.0-34.0); Mean Corpuscular Hgb Conc 36.1 g/dL (32.0-36.0); Mean Corpuscular Volume 87.5 fL (80.0-100.0); Platelet Count 248 K/uL (130-400); RDW Coefficient of Variation 12.6 % (11.5-14.5); RDW Standard Deviation 39.7 fL (36.4-46.3); Red Blood Count 4.72 M/uL (4.70-6.10); White Blood Count 14.53 K/ul (4.8-10.8)
[2024-03-23 04:58] LABS: BUN Creatinine Ratio 15.3 (10-20); Calcium 9.5 mg/dl (8.6-10.3); Creatinine Clr Calc Pharmacy 67.8 ml/min; Est GFR (African American) 64.3 ml/min; Est GFR (Non-African American) 55.4 ml/min; Magnesium 2.3 mg/dl (1.7-2.4); Potassium 4.3 mmol/L (3.5-5.1)
--- NOTE | 2024-03-23 05:37 | Billing Data ---
Date of Service March 23, 2024 Coding Level of Care Code 27618 CRITICAL CARE M
--- NOTE | 2024-03-23 08:50 | Critical Care Progress Note ---
Date of Service March 23, 2024 Assessment & Plan (1) STEMI (ST elevation myocardial infarction): (2) Hyperlipidemia: Plan: Continue Statin (3) GERD (gastroesophageal reflux disease): Plan: Continue PPI (4) Type 2 diabetes mellitus: Plan --STEMI Patient with EKG showing ST elevation in the anterior leads with associated chest pain. Now s/p catheterization with successful PCI and SANCHEZ x 2 to the LAD. Admitted to ICU post cath for further monitoring and management. - TTE with grade 1 diastolic dysfunction and severe hypokinesis and dysk inesis of the mid ventricle to apex. -Completed Integrilin infusion. - ASA, Brilinta, statin, lisinopril, BB. Antihypertensives on hold at this time due to hypotension. - Trend troponin for peak - Follow-up cardiology recommendations. Patient with apparent RCA disease and may require further intervention. Awaiting cardiology recommendations today. -Continuous monitoring telemetry -- Acute hypoxic respiratory failure Resolved. -- DM - II Continue sliding scale/basal bolus. ICU hyperglycemic protocol --Dyslipidemia Continue with statin Dispo per cardiology. Will remain in ICU unless otherwise specified by the on- call restaurant front manager. Admission and Anticipated Discharge Date Admission Date: March 22, 2024 Subjective Patient had some nausea last night which is since resolved. Able to tolerate his breakfast this morning. Denies any shortness of breath, chest pain or dizziness. Systolic blood pressures in the low 90s and BP meds have been held. Review of Systems Review of Systems: All systems reviewed & are unremarkable except as noted in HPI & below Physical Exam Constitutional: cooperative and comfortable Eyes: PERRL, conjunctivae normal, anicteric sclerae ENMT: external ear and nose normal, oropharynx normal Neck: trachea midline, no thyromegaly Respiratory: normal respiratory effort, lungs clear to auscultation Cardiovascular: RRR, no murmur, no edema Heart Sounds: normal S1 and normal S2; no murmur Gastrointestinal (Abdomen): normal bowel sounds, soft, nontender, no hepato splenomegaly Musculoskeletal: no cyanosis or clubbing, extremities motor strength 5/5 Skin: no rashes, warm and dry Neurologic: PERRL, EOMI, accommodation nl, no face palsy, no dysarthria Psychiatric: A+Ox3, euthymic affect Results & Data Results & Data Vital Signs (Past 12 Hours) Vital Signs Pulse Resp BP BP Pulse Ox O2 Del Method 03/23/24 08:08 Room Air 03/23/24 08:00 72 03/23/24 04:03 65 16 95 03/23/24 04:00 109/71 03/23/24 03:00 71 12 95 03/23/24 03:00 89/60 L 03/23/24 02:00 93/66 L 03/23/24 02:00 69 15 96 03/23/24 01:33 72 12 95 03/23/24 01:06 79 20 93 03/23/24 01:00 103/73 03/23/24 00:03 79 10 L 94 03/23/24 00:00 102/72 03/23/24 00:00 67 03/22/24 23:30 107/71 03/22/24 23:30 76 11 L 96 03/22/24 23:00 106/71 03/22/24 23:00 85 18 93 03/22/24 22:00 121/88 03/22/24 22:00 88 17 94 03/22/24 21:12 83 15 96 03/22/24 21:00 127/80 Coding Level of Care Code 81702 SUB INP/OBS CARE MIN Diagnoses STEMI (ST elevation myocardial infarction) I21.3 Hyperlipidemia E78.5 GERD (gastroesophageal reflux disease) K21.9 Type 2 diabetes mellitus E11.9
--- NOTE | 2024-03-23 12:28 | Cardiology Progress Note ---
Date of Service March 23, 2024 Assessment & Plan (1) STEMI (ST elevation myocardial infarction): Plan: -s/p mid LAD PCI. -high sensitivity troponin peaked at 55,674. (2) CAD (coronary artery disease): Plan: -significant 3 vessel disease as described. -will have Dr. Ugarte review the films tomorrow to decide if further intervention indicated. (3) Ischemic cardiomyopathy: Plan: -LVEF 30-35%. -continue carvedilol and lisinopril. -consider addition of SGLT2 inhibitor. -consider limited 2D echocardiogram tomorrow to assess LVEF and determine if a life vest is indicated. Admission and Anticipated Discharge Date Admission Date: March 22, 2024 Subjective The patient is resting comfortably in bed complaints of chest pain or dyspnea. His sister and mother are at the bedside. Physical Exam Physical Exam: In general this is a well-developed well-nourished white male in no acute distress. HEENT exam is negative. Neck is supple with full carotid upstrokes. There are no carotid bruits. Jugular venous pressure is flat at 90. There is no thyromegaly. Cardiovascular exam reveals a regular rhythm with a normal S1 and S2. No S3, S4, or murmurs are noted. Lungs are clear without rales, rhonchi, or wheezes. Abdomen is soft and nontender without bruits. Extremities reveal intact radial artery and posterior tibial pulses bilaterally. There is no peripheral edema. Results & Data Vital Signs (Past 12 Hours) Vital Signs Temp Pulse Resp BP BP Pulse Ox O2 Del Method 03/23/24 10:09 73 21 105/61 99 03/23/24 09:12 93 H 15 90/63 L 98 03/23/24 08:27 94/62 L 03/23/24 08:09 75 18 104/64 97 03/23/24 08:08 Room Air 03/23/24 08:00 72 03/23/24 07:30 36.8 C 03/23/24 07:09 72 13 94/65 L 96 03/23/24 04:03 65 16 95 03/23/24 04:00 109/71 03/23/24 03:00 71 12 95 03/23/24 03:00 89/60 L 03/23/24 02:00 93/66 L 03/23/24 02:00 69 15 96 03/23/24 01:33 72 12 95 03/23/24 01:06 79 20 93 03/23/24 01:00 103/73 Diagnostic Findings monitor worker is benign. PG Care Time/CCT Total # of Minutes Spent Total Time Spent with Patient: Total time spent is greater than 50% in coordination of care (as documented) at patient's floor/unit and/or counseling patient: Coding Level of Care Code 99656 SUB INP/OBS CARE 3/50MIN Diagnoses STEMI (ST elevation myocardial infarction) I21.3 CAD (coronary artery disease) I25.10 Ischemic cardiomyopathy I25.5
--- NOTE | 2024-03-23 14:15 | Hospitalist Progress Note ---
Date of Service March 23, 2024 Assessment & Plan (1) STEMI (ST elevation myocardial infarction): Plan: He presented with anterior wall [place]. He underwent emergent left heart catheterization with PTCA and stenting of the LAD. He has underlying triple- vessel coronary artery disease. Cardiology consultation and recommendations appreciated. Medical management for now. Dr. Ugarte to review heart cath images tomorrow, March 24 (2) CAD (coronary artery disease): Plan: Triple-vessel coronary artery disease noted on cardiac catheterization. Medical management for now. Cardiac echo report noted (3) Type 2 diabetes mellitus: Plan: He is insulin rex. Scheduled new Lantus dosing has been discontinued. Metformin is currently on hold. The risk here is hypoglycemia, not mild hyperglycemia. Sliding scale coverage for now (4) Hypertension: Plan: Lisinopril held this morning, March 23, for systolic pressure in the 90s. He is asymptomatic (5) Tobacco abuse: Plan: Smoking cessation highly recommended Plan To be determined. Cardiology states that Dr. Ugarte will review the heart cath images tomorrow, March 24 Admission and Anticipated Discharge Date Admission Date: March 22, 2024 Subjective Alert and oriented. He denies chest pain. Cardiology entry noted. He will remain hospitalized until Dr. Ugarte can review his heart cath images tomorrow. Review of Systems 2 Review of Systems: Constitutional-no fever or chills ENT-no blurred vision, no double vision, no epistaxis, no sore throat Respiratory-no cough, no wheezing, no shortness of breath Cardiac-no palpitations, no chest pain, no syncope GI-no nausea, vomiting, diarrhea, melena, hematochezia -no urinary retention, no urinary incontinence, no dysuria, no hematuria Musculoskeletal-no joint pain, no muscle tenderness Skin-no bruising, no rashes, no pruritus Neuro-no isolated weakness, no paresthesia, no weakness Psych-no depression, no anxiety Physical Exam 2 Physical Exam: General-alert and oriented x3, no fever, no chills HEENT-head atraumatic and normocephalic, pupils equal and reactive to light, extraocular muscles intact Neck-no lymphadenopathy or thyromegaly, trachea midline Chest-clear to auscultation. No rales, wheezing or rhonchi Cardiac-regular rate and rhythm, normal S1 and S2 Abdomen-normal bowel sounds, no hepatosplenomegaly Extremities-no cyanosis, clubbing, or edema Neuro-cranial nerves II through XII intact, motor and sensory function within normal limits, strength symmetrical, no focal deficits Psych-normal affect, normal mood Results & Data Results & Data Vital Signs (Past 12 Hours) Vital Signs Temp Pulse Resp BP BP Pulse Ox O2 Del Method 03/23/24 10:09 73 21 105/61 99 03/23/24 09:12 93 H 15 90/63 L 98 03/23/24 08:27 94/62 L 03/23/24 08:09 75 18 104/64 97 03/23/24 08:08 Room Air 03/23/24 08:00 72 03/23/24 07:30 36.8 C 03/23/24 07:09 72 13 94/65 L 96 03/23/24 04:03 65 16 95 03/23/24 04:00 109/71 03/23/24 03:00 71 12 95 03/23/24 03:00 89/60 L Laboratory Results 03/23/24 04:24 03/23/24 04:24 PG Care Time/CCT Total # of Minutes Spent Total Time Spent with Patient: Total time spent is greater than 50% in coordination of care (as documented) at patient's floor/unit and/or counseling patient: Coding Level of Care Code 87276 SUB INP/OBS CARE 2/35MIN Diagnoses STEMI (ST elevation myocardial infarction) I21.3 CAD (coronary artery disease) I25.10 Type 2 diabetes mellitus E11.9 Hypertension I10 Tobacco abuse Z72.0
[2024-03-24 11:47] LABS: Basophils # (auto) 0.03 K/uL (0.00-0.20); Basophils % (auto) 0.3 %; Eosinophils # (auto) 0.08 K/uL (0.00-0.50); Eosinophils % (auto) 0.9 %; Hematocrit (blood only) 39.9 % (42.0-52.0); Hemoglobin 14.2 g/dl (14.0-18.0); Immature Granulocytes # (auto) 0.02 K/uL (0.01-0.20); Immature Granulocytes % (auto) 0.2 %; Lymphocytes % (auto) 20.3 %; Mean Corpuscular Hemoglobin 31.1 pg (25.0-34.0); Mean Corpuscular Hgb Conc 35.6 g/dL (32.0-36.0); Mean Corpuscular Volume 87.3 fL (80.0-100.0); Mean Platelet Volume 10.1 fL (9.4-12.4); Monocytes # (auto) 1.16 K/uL (0.11-0.59); Monocytes % (auto) 12.4 %; Neutrophils # (auto) 6.19 K/uL (1.40-6.50); Neutrophils % (auto) 65.9 %; Platelet Count 237 K/uL (130-400); RDW Coefficient of Variation 12.4 % (11.5-14.5); RDW Standard Deviation 39.2 fL (36.4-46.3); Red Blood Count 4.57 M/uL (4.70-6.10); White Blood Count 9.38 K/ul (4.8-10.8)
[2024-03-24 12:07] LABS: Albumin Globulin Ratio 1.4 (0.9-2); Albumin Level 4.2 gm/dl (3.4-5.0); BUN Creatinine Ratio 23.9 (10-20); Bilirubin,Total 0.8 mg/dl (0.2-1.0); Calcium 9.5 mg/dl (8.6-10.3); Creatinine Clr Calc Pharmacy 89.6 ml/min; Est GFR (Non-African American) 77.6 ml/min; Globulin 2.9 gm/dl (2.5-4.0); Magnesium 2.2 mg/dl (1.7-2.4); Potassium 4.4 mmol/L (3.5-5.1); Total Protein 7.1 gm/dl (6.0-8.3)
--- NOTE | 2024-03-24 15:10 | XCELERA ---
[id number] \\[id number]\[id number]
--- NOTE | 2024-03-24 16:01 | Discharge Summary ---
Discharge Summary Date of Service March 24, 2024 Principal Dx & Hospital Course #1 = Principal Diagnosis (1) STEMI (ST elevation myocardial infarction): He presented with anterior wall [place]. He underwent emergent left heart catheterization with PTCA and stenting of the LAD. He has underlying double- vessel coronary artery disease. Cardiology consultation and recommendations appreciated. Cardiac catheterization reviewed by Dr. Ugarte on 03/24 as per my discussion with Dr. Marcos and agrees with medical management ongoing Doing well, no arrhythmias on telemetry, he has had low normal blood pressures and has been unable to tolerate the addition of carvedilol to his lisinopril Echocardiogram after intervention showed low EF at 30-35% with hypo to akinesis of the mid ventricle to apex A repeat limited echocardiogram on the day of discharge showed improvement with EF now 50% No LifeVest indicated Lipid panel recently with LDL of 90 Troponin peaked at 55,000 -Lower lisinopril to 5 mg daily -Lower carvedilol to 3.125 Mg p.o. 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 within 2 weeks-note for work given (2) CAD (coronary artery disease): As noted above (3) Type 2 diabetes mellitus: Continue home metformin Hemoglobin A1c well-controlled at 6.6% on recent testing (4) Hypertension: Blood pressures have come down significantly since he had his pheochromocytoma resection in 10/2023 and he has since been discontinued off of his amlodipine, doxazosin, and metoprolol Starting low-dose carvedilol here and lowering dose of lisinopril to 5 mg daily for severe CAD and ischemic cardiomyopathy Monitor blood pressures at home (5) Tobacco abuse: Smoking cessation highly recommended He is to start Chantix after discharge Plan Disposition-stable for discharge to home Discussed care with cardiology Notes For Next Care Provider Monitor LFTs-AST mildly elevated at 81 on day of discharge and may be related to [place] but was also placed on increased intensity of statin drug Follow-up with cardiology within 2 weeks Follow-up with PCP within 2 weeks Medication Changes From Visit Added Brilinta 90 Mg p.o. twice daily Added aspirin 81 mg daily Decrease lisinopril to 5 mg daily Added carvedilol 3.125 Mg p.o. twice daily Increased rosuvastatin to 40 mg daily Admission HPI Per Admitting Provider Pt is a 53 yo male with PMH of HTN, pheochromocytoma (s/p resection 10/2023) and type 2 DM presenting to the ER d/t chest pain. Pt developed chest pain that felt similar to indigestion. His pain worsened and spread to his left arm/shoulder which prompted him to seek evaluation. He has never had chest pain like this before. In the ER, a heart alert was called d/t ST elevations on pt's EKG. He was emergently taken to cardiac cath. Discharge Exam Constitutional WD/WN, vitals as above Respiratory normal respiratory effort, lungs clear to auscultation Cardiovascular RRR, no murmur, no edema Psychiatric A+Ox3, euthymic affect Updated Medication List Medication Instructions Recorded Confirmed Type metformin 500 mg tablet,extended 500 mg PO DAILY #90 tabs 09/10/23 03/22/24 Rx release 24 hr pantoprazole 40 mg tablet,delayed 40 mg PO DAILY #90 tabs 11/28/23 03/22/24 Rx release (Protonix) rosuvastatin 20 mg tablet 20 mg PO DAILY #90 tabs 01/31/24 03/22/24 Rx sildenafil 50 mg tablet See Rx Instructions PO DAILY PRN 02/29/24 03/22/24 Rx sexual activity #10 tabs varenicline 0.5 mg (11)-1 mg (42) See Rx Instructions .Route 02/29/24 03/22/24 Rx tablets in a dose pack (Flitto .COMPLEX #53 ea Starting Month Box) famotidine 40 mg tablet 40 mg PO QPM 03/22/24 03/22/24 History aspirin 81 mg tablet,delayed 81 mg PO QAM #30 tabs 03/24/24 Rx release carvedilol 3.125 mg tablet 3.125 mg PO BID #60 tabs 03/24/24 Rx lisinopril 5 mg tablet 5 mg PO DAILY #30 tabs 03/24/24 Rx rosuvastatin 40 mg tablet 40 mg PO DAILY #30 tabs 03/24/24 Rx ticagrelor 90 mg tablet (Brilinta) 90 mg PO BID #60 tabs 03/24/24 Rx Hospital Stay Data Consultations 03/22/24 04:46 Consult Handwriting Expert Routine 03/22/24 05:42 Consult Handwriting Expert Routine 03/22/24 07:27 Consult Cardiology Routine Procedures Performed Operation Date: 03/22/24 04:00 Actual Procedures p Cath, Left with Cors and Vent - Kash Bermudez MD s Cineradiography w/Routine Exam - Kash Bermudez MD p Aspiration/PCI w/SANCHEZ for Stemi - Kash Bermudez MD Echocardiogram Diagnostic Imagining Performed 03/22/24 04:00 CL Cath Imgs for PACS use only Stat Pending Results Patient Have Any Pending Studies at Discharge: No Discharge Instructions Given to Patient (Per Discharging Provider) Home Care: * Take your medications exactly as directed. Don't skip doses. * Remember that recovery after a heart attack takes time. Plan to rest for at lease 4-8 weeks while you recover. Then return to normal activity when your doctor says it's okay. * Ask your doctor about joining a heart rehabilitation program. * Tell your doctor if you are feeling depressed. Feelings of sadness are common after a heart attack, but it is important that you speak to someone if you are feeling overwhelmed by these feelings. * If you are having chest pain, call 911 for an ambulance. Do NOT drive yourself to the hospital. * Ask your family members to learn CPR. * Learn to take your own blood pressure and pulse. Keep a record of your results. Ask your doctor when you should seek emergency medical attention. He or she will tell you which blood pressure reading is dangerous. Lifestyle Changes: * Maintain a healthy weight. Get help to lose any extra pounds. * Cut back on salt. * Limit canned, dried, packaged, and fast foods. * Don't add salt to your food. * Season foods with herbs instead of salt when you cook. * Break the smoking habit. Enroll in a stop-smoking program to improve your chances of success. * Limit fatty foods. * Ask your doctor about having your lipid levels checked regularly. * Build up your activity according to your doctor's recommendation. * Ask your doctor when it's okay to resume sexual activity. * Tell your doctor about any erectile dysfunction (ED) medication you are taking. Some ED medications are not safe if you take certain heart medications. * Try to manage stress. Follow Up: It is important for you to keep your follow up appointments with your medical provider. ACTIVITY RECOMMENDATIONS: Excess manipulation of the wrist should be avoided for the next 24-48 hours. * No lifting over 2 pounds (approximately a 1/2 gallon of milk) with the utilized arm for 24 hours. * No strenuous activity such as bowling or tennis for 3 days. * Keep the site of the procedure covered with a bandage for 24 hours. *You may shower the day after the procedure. Do not take a tub bath or submerge the puncture site in water for the next 3 days. *Do not operate any motorized equipment for 3 days. SPECIAL CARE INSTRUCTIONS: The site may be slightly bruised and sore following your procedure. Should any of the following occur, contact the Dr. who performed your procedure. 1. Redness/inflammation, swelling, chills, or fever, or colored drainage at procedure site within 3-7 days after your procedure. 2. Coldness, discoloration, ongoing numbness, severe pain, or swelling. Expect mild tingling of hand and tenderness at the puncture site for up to three days. If this persists beyond three days, or other symptoms develop, notify the Dr. who performed your procedure. BLEEDING: If the procedure site on your wrist begins to bleed, do not panic 1. Place 1 or 2 fingers firmly just slightly above the insertion site to stop the bleeding. You may be able to feel your pulse as you hold pressure. 2. Lift your finger after 5 minutes to see if the bleeding has stopped. 3. Once the bleeding has stopped, gently wipe the wrist area clean with a bandage. * If the bleeding from your wrist does not stop after 10 minutes, or if there is a large amount of bleeding or spurting, call 911 (do not drive yourself to the hospital). SKIN IRRITATION: * You may experience some redness and/or swelling in the area where radiation was administered. If any skin irritation occurs, please contact your family physician. FOLLOW UP VISIT: Keep any scheduled doctor appointments. Total Time Total Time Spent Total Time Spent (In Minutes): 40 minutes Total Time Includes: Examination of the Patient, Discharge Planning, Medication Reconciliation and Communication With Other Providers (Cardiology) Coding Level of Care Code 89176 INP/OBS DISCH >30 MIN Diagnoses STEMI (ST elevation myocardial infarction) I21.3 CAD (coronary artery disease) I25.10 Type 2 diabetes mellitus E11.9 Hypertension I10 Tobacco abuse Z72.0
--- NOTE | 2024-03-25 09:12 | Cardiology Progress Note ---
Date of Service March 25, 2024 Assessment & Plan (1) STEMI (ST elevation myocardial infarction): Plan: -s/p mid LAD PCI. -high sensitivity troponin peaked at 55,674. (2) CAD (coronary artery disease): Plan: -significant 3 vessel disease as described. -Dr. Ugarte reviewed the films and feels no further intervention necessary. -continue medical management. (3) Ischemic cardiomyopathy: Plan: -LVEF 30-35% on presentation, -follow-up study notes LVEF 50% with mid and distal anterior hypokinesis. -continue carvedilol and lisinopril. -consider addition of SGLT2 inhibitor. Admission and Anticipated Discharge Date Admission Date: March 22, 2024 Subjective Late entry. The patient is resting comfortably in bed complaints of chest pain or dyspnea. His is at the bedside. Physical Exam Physical Exam: In general this is a well-developed well-nourished white male in no acute distress. HEENT exam is negative. Neck is supple with full carotid upstrokes. There are no carotid bruits. Jugular venous pressure is flat at 90. There is no thyromegaly. Cardiovascular exam reveals a regular rhythm with a normal S1 and S2. No S3, S4, or murmurs are noted. Lungs are clear without rales, rhonchi, or wheezes. Abdomen is soft and nontender without bruits. Extremities reveal intact radial artery and posterior tibial pulses bilaterally. There is no peripheral edema. Results & Data Diagnostic Findings shelter monitor is benign. PG Care Time/CCT Total # of Minutes Spent Total Time Spent with Patient: Total time spent is greater than 50% in coordination of care (as documented) at patient's floor/unit and/or counseling patient: Coding Level of Care Code 19184 SUB INP/OBS CARE 3/50MIN Diagnoses STEMI (ST elevation myocardial infarction) I21.3 CAD (coronary artery disease) I25.10 Ischemic cardiomyopathy I25.5
== END 2024-03-24 17:19 | disposition home or self-care (01) | DRG 322 ==
LOC: ED 03:37 → CC 04:15 → 1E 04:44 → SUATTDRO 04:44 → 4W 03-23 19:14

== ENCOUNTER 2024-06-18 18:09 | Inpatient (IN) ==
--- NOTE | 2024-06-18 18:58 | XRay Report ---
XR chest 1V portable CLINICAL HISTORY: Chest pain, nonspecific COMPARISON STUDY: Chest CT the 2023. Chest radiograph March 22, 2024. FINDINGS: Lung volumes are normal. There is no consolidation to suggest pneumonia. Apparent hazy righ t infrahilar opacity is similar to prior exams and likely artifactual. There is no pneumothorax or pl eural effusion. Cardiac size is normal. Mediastinal contours are normal. There is no evidence for pul monary edema. IMPRESSION: No acute cardiopulmonary findings. ACT 112: Negative or not required by law. Electronically signed by: Yandel Meléndez M.D. 06/18/2024 6:57 PM
[2024-06-18] MEDS: PANTOprazole 80 MG in DEXTROSE 5% 100 ML IV ONE (19:29)
--- NOTE | 2024-06-18 19:34 | Emergency Department Note ---
Impression & Plan Melena, Symptomatic anemia ED Provider Note Provider: Marc Robin MD DATE OF SERVICE: 06/18/2024 CHIEF COMPLAINT: Weak, lightheaded with movement, intermittent chest pressure, low blood counts HISTORY OF PRESENT ILLNESS: Patient is a 53-year-old gentleman history of GERD, type 2 diabetes, tobacco abuse, and CAD with stents in March on aspirin and Plavix presenting today referred for outpatient blood work abnormalities. Patient has been feeling over the last at least week little more short of breath and having some heartburn and chest discomfort symptoms with certain movements. For the lightheaded when bending over no syncope or trauma. No swelling. 3 to 4 weeks of blackish stools. Outpatient blood work notable for significant anemia hemoglobin less than 7. Patient denies significant alcohol use or NSAID use beyond the antiplatelets he takes for his stents. Referred by outpatient doctor for further evaluation. Denies a history of GI bleed. PAST MEDICAL HISTORY: As noted above MEDICATIONS: Reviewed home medications includes aspirin and Plavix SOCIAL HISTORY: Smoker but trying to cut back PHYSICAL EXAM: GENERAL: alert and oriented in no acute distress on stretcher fatigued in appearance Head: normocephalic and atraumatic EYES: No injection, discharge or icterus. EOMI. NECK: Trachea midline. ENT: Mucous membranes pink and moist. LUNGS: Airway patent. No retractions. Breath sounds clear with good air entry bilaterally. HEART: Regular rate and rhythm. No chest wall tenderness ABDOMEN: Soft and non-tender, without guarding or rebound. Rectal: With nurse enamel buffer present, Hemoccult positive stool SKIN: Acyanotic, warm, dry, without rashes EXTREMITIES: Without swelling, tenderness or deformity NEUROLOGICAL: No focal deficits. No aphasia. No facial droop or slurred speech. Ambulatory. EK bpm normal sinus rhythm. No PVC or PAC. No acute ST segment elevation or depression with nonspecific T wave changes. QTc 405. CONTINUOUS CARDIAC MONITORING: was ordered and showed a heart rate of 70s-90s bpm in normal sinus rhythm Patient's laboratory studies and imaging reviewed. Differential includes Cardiac ischemia, aortic dissection, pulmonary embolism, pneumothorax, pneumonia, pericarditis, myocarditis, esophageal rupture, GERD, cholecystitis, pancreatitis, musculoskeletal, GI bleed, diverticulitis, anemia, as well as other pathologies. IMPRESSION/MEDICAL DECISION MAKING: Patient with this appears to be symptomatic anemia. Confirmed outpatient anemia on blood work here and type and screen completed. Blood consent completed. Protonix bolus and drip with black stools he reports. No significant abdominal pain. Intermittent heartburn type symptoms seems more exertional. No vomiting of blood reported. No bright red blood per rectum reported. Chest x-ray without significant findings per radiology of pneumonia pneumothorax or fluid. Confirmed the anemia. Patient consented packed and red blood cell transfusion ordered. Troponin 23.7 not significantly elevated. Creatinine and electrolytes otherwise reassuring. Iron panel ordered. Will need GI workup for the GI bleed. Will admit for further monitoring, GI evaluation, and transfusion. DIAGNOSIS: History of CAD, symptomatic anemia, melena DISPOSITION: Hospitalist will evaluate Patient was agreeable with this plan. Critical Care I have personally spent 33 minutes of critical care time in the direct management of this patient. This includes bedside care, interpretation of diagnostic studies, and testing, discussion with consultants, patient, and family members, and other required patient management activities. These 33 minutes is in excess of all separately billable procedures. Past Med/Surg History Problem List (Updated 06/18/24 @ 23:36 by Marc Robin M.D.) Symptomatic anemia (Acute) Melena (Acute) Anemia History of ST elevation myocardial infarction (STEMI) Upper GI bleed Stable angina pectoris Orthostatic hypotension Presence of drug coated stent in LAD coronary artery Ischemic cardiomyopathy Tobacco abuse CAD (coronary artery disease) Type 2 diabetes mellitus (Chronic) Chronic sinusitis (Chronic) GERD (gastroesophageal reflux disease) (Chronic) Sensorineural hearing loss (SNHL) of both ears (Chronic) Hyperlipidemia (Chronic) Hypertension (Chronic) Medical History STEMI (ST elevation myocardial infarction) Pheochromocytoma Surgical History History of cardiac cath History of heart artery stent History of dental surgery Family History Father Cerebral hemorrhage Hypertension Grandmother (Maternal) Diabetes Myocardial infarction Grandfather (Paternal) Myocardial infarction Denies family history of Ovarian cancer Prostate cancer Breast cancer Colorectal cancer Social History Smoking Status: Current every day smoker Tobacco Type: Cigarettes Age Started Using Tobacco: 19; packs per day: 1; Cigarettes Per Day: 6-10; Second Hand Exposure: No; Do You Dip or Chew Tobacco: No; Hx Alcohol Use: Yes Alcohol type: hard liquor Hx Substance Use: No Preferred Language: Latvian Communication Ability: Effective Scheduling Assistant Required: No Beliefs That Will Affect Care: None marital status: Current Living Situation: Alone Current Living Situation Comment: lives at home by self current occupational status: employed 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 [employer] Feels Safe at Home: Yes Diet: diabetic, low salt and regular caffeine: Yes Dental Care, Regularly: Yes Physical Activity Frequency: 1-2 Times per Week Seatbelt Use: always Sunscreen Use: No Assistive Devices: None Allergies Allergies Allergy/AdvReac Type Severity Reaction Status Date / Time No Known Allergies Allergy Verified 06/18/24 12:36 Home Meds Home Medications Medication Instructions Recorded Confirmed famotidine 40 mg tablet 40 mg PO QPM 06/18/24 06/18/24 lisinopril 5 mg tablet 5 mg PO DAILY 06/18/24 06/18/24 metformin 500 mg tablet,extended 500 mg PO DAILY 06/18/24 06/18/24 release 24 hr pantoprazole 40 mg tablet,delayed 40 mg PO DAILY 06/18/24 06/18/24 release Previous Rx's Medication Instructions Recorded sildenafil 50 mg tablet See Rx Instructions PO DAILY PRN 02/29/24 sexual activity #10 tabs aspirin 81 mg tablet,delayed 81 mg PO QAM #30 tabs 03/24/24 release blood-glucose meter,continuous #1 ea 03/28/24 (Dexcom G7 Payroll Professional) ticagrelor 90 mg tablet (Brilinta) 90 mg PO BID #60 tabs 04/08/24 carvedilol 3.125 mg tablet 3.125 mg PO BID #180 tabs 04/15/24 rosuvastatin 40 mg tablet 40 mg PO DAILY #90 tabs 04/15/24 blood-glucose sensor (Dexcom G7 #3 ea 06/18/24 Sensor device) varenicline 1 mg tablet (Chantix 1 mg PO BID #60 tabs 06/18/24 Continuing Month Box) Results & Data (ED) Vital Signs Vital Signs - 24 hr 06/18/24 18:14 06/18/24 18:29 06/18/24 18:34 Temperature 36.5 C Temperature Source Temporal Artery Scan Pulse Rate 83 74 Pulse Rate [Apical] 79 Pulse Rate from SpO2 Sensor Pulse Rhythm [Apical] Regular Respiratory Rate 18 19 20 Respiratory Effort / Characteristics Non-Labored Spontaneous Non-Labored Spontaneous Respiratory Depth Normal Normal Respiratory Pattern Regular Blood Pressure 118/67 Blood Pressure [Right Arm] 127/77 Blood Pressure Mean 84 Blood Pressure Mean [Right Arm] 93 Blood Pressure Position Sitting Blood Pressure Position [Right Arm] Semi-fowlers Pulse Oximetry 100 99 100 Oxygen Delivery Method Room Air Room Air Room Air Sepsis Recent Fever Within 48 Hours No Sepsis New/Unexplained Change in Mental Status No Sepsis Action Taken by Nursing No Action Required 06/18/24 19:34 06/18/24 19:54 06/18/24 19:57 Temperature Temperature Source Pulse Rate 76 79 Pulse Rate [Apical] 86 Pulse Rate from SpO2 Sensor 76 79 Pulse Rhythm [Apical] Regular Respiratory Rate 17 24 24 Respiratory Effort / Characteristics Non-Labored Spontaneous Respiratory Depth Normal Respiratory Pattern Regular Blood Pressure Blood Pressure [Right Arm] Blood Pressure Mean Blood Pressure Mean [Right Arm] Blood Pressure Position Blood Pressure Position [Right Arm] Semi-fowlers Pulse Oximetry 99 97 99 Oxygen Delivery Method Room Air Sepsis Recent Fever Within 48 Hours Sepsis New/Unexplained Change in Mental Status Sepsis Action Taken by Nursing 06/18/24 20:01 06/18/24 20:03 06/18/24 20:21 Temperature Temperature Source Pulse Rate 75 Pulse Rate [Apical] 77 Pulse Rate from SpO2 Sensor 77 Pulse Rhythm [Apical] Respiratory Rate 13 15 Respiratory Effort / Characteristics Non-Labored Spontaneous Respiratory Depth Normal Respiratory Pattern Regular Blood Pressure 109/70 Blood Pressure [Right Arm] 109/70 Blood Pressure Mean 81 Blood Pressure Mean [Right Arm] 83 Blood Pressure Position Blood Pressure Position [Right Arm] Pulse Oximetry 99 99 Oxygen Delivery Method Room Air Sepsis Recent Fever Within 48 Hours Sepsis New/Unexplained Change in Mental Status Sepsis Action Taken by Nursing 06/18/24 20:33 Temperature Temperature Source Pulse Rate 68 Pulse Rate [Apical] Pulse Rate from SpO2 Sensor 70 Pulse Rhythm [Apical] Respiratory Rate 18 Respiratory Effort / Characteristics Respiratory Depth Respiratory Pattern Blood Pressure Blood Pressure [Right Arm] Blood Pressure Mean Blood Pressure Mean [Right Arm] Blood Pressure Position Blood Pressure Position [Right Arm] Pulse Oximetry 100 Oxygen Delivery Method Sepsis Recent Fever Within 48 Hours Sepsis New/Unexplained Change in Mental Status Sepsis Action Taken by Nursing Laboratory Data 06/18/24 18:48 06/18/24 18:48 Lab Results 06/18/24 06/18/24 06/18/24 Range/Units 18:48 19:04 19:58 WBC 7.54 (4.8-10.8) K/ul RBC 2.65 L (4.70-6.10) M/uL Hgb 6.6 L* (14.0-18.0) g/dl Hct 21.6 L (42.0-52.0) % MCV 81.5 (80.0-100.0) fL MCH 24.9 L (25.0-34.0) pg MCHC 30.6 L (32.0-36.0) g/dL RDW Std Deviation 43.1 (36.4-46.3) fL RDW Coeff of Jocelin 14.5 (11.5-14.5) % Plt Count 365 (130-400) K/uL MPV 9.5 (9.4-12.4) fL Immature Gran % (Auto) 0.3 % Neut % (Auto) 58.2 % Lymph % (Auto) 28.2 % [place] % (Auto) 10.9 % Eos % (Auto) 1.7 % Baso % (Auto) 0.7 % Neut # (Auto) 4.39 (1.40-6.50) K/uL Lymph # (Auto) 2.13 (1.20-3.40) K/uL [place] # (Auto) 0.82 H (0.11-0.59) K/uL Eos # (Auto) 0.13 (0.00-0.50) K/uL Baso # (Auto) 0.05 (0.00-0.20) K/uL Immature Gran # (Auto) 0.02 (0.01-0.20) K/uL Polychromasia 1+ PT 10.6 (9.0-12.0) Seconds INR 1.0 (0.9-1.1) APTT 25 (21-31) Seconds PTT Ratio 0.9 Sodium 137 (136-145) mmol/L Potassium 4.3 (3.5-5.1) mmol/L Chloride 108 H (98-107) mmol/L Carbon Dioxide 23 (21-32) mmol/L Anion Gap 6 (3-11) BUN 15 (6-23) mg/dl Creatinine 1.27 (0.6-1.4) mg/dl Est Cr Clr Drug Dosing 74.7 ml/min Est GFR ( Amer) 74.8 ml/min Est GFR (Non-Af Amer) 64.5 ml/min BUN/Creatinine Ratio 11.8 (10-20) Glucose 100 H (70-99(Fasting)) mg/dl Calcium 9.0 (8.6-10.3) mg/dl Iron 18 L (35-175) mcg/dl TIBC 434 (250-450) mcg/dl Unsaturated IBC 416 H (155-355) mcg/dl Transferrin % Sat 4 L (20-50) % Ferritin 3.0 L (8-388) ng/ml Total Bilirubin 0.3 (0.2-1.0) mg/dl AST 19 (13-39) U/L ALT 14 (7-52) U/L Alkaline Phosphatase 66 (34-104) U/L Troponin I High Sens 23.7 H (0-20) pg/ml Total Protein 6.8 (6.0-8.3) gm/dl Albumin 4.5 (3.4-5.0) gm/dl Globulin 2.3 L (2.5-4.0) gm/dl Albumin/Globulin Ratio 2.0 (0.9-2) Lipase 22 (11-82) U/L POC Stool Occult Blood (Negative) Blood Type O Negative Blood Type Recheck O Negative Antibody Screen NEGATIVE Crossmatch See Detail 06/18/24 Range/Units 20:02 WBC (4.8-10.8) K/ul RBC (4.70-6.10) M/uL Hgb (14.0-18.0) g/dl Hct (42.0-52.0) % MCV (80.0-100.0) fL MCH (25.0-34.0) pg MCHC (32.0-36.0) g/dL RDW Std Deviation (36.4-46.3) fL RDW Coeff of Jocelin (11.5-14.5) % Plt Count (130-400) K/uL MPV (9.4-12.4) fL Immature Gran % (Auto) % Neut % (Auto) % Lymph % (Auto) % [place] % (Auto) % Eos % (Auto) % Baso % (Auto) % Neut # (Auto) (1.40-6.50) K/uL Lymph # (Auto) (1.20-3.40) K/uL [place] # (Auto) (0.11-0.59) K/uL Eos # (Auto) (0.00-0.50) K/uL Baso # (Auto) (0.00-0.20) K/uL Immature Gran # (Auto) (0.01-0.20) K/uL Polychromasia PT (9.0-12.0) Seconds INR (0.9-1.1) APTT (21-31) Seconds PTT Ratio Sodium (136-145) mmol/L Potassium (3.5-5.1) mmol/L Chloride (98-107) mmol/L Carbon Dioxide (21-32) mmol/L Anion Gap (3-11) BUN (6-23) mg/dl Creatinine (0.6-1.4) mg/dl Est Cr Clr Drug Dosing ml/min Est GFR ( Amer) ml/min Est GFR (Non-Af Amer) ml/min BUN/Creatinine Ratio (10-20) Glucose (70-99(Fasting)) mg/dl Calcium (8.6-10.3) mg/dl Iron (35-175) mcg/dl TIBC (250-450) mcg/dl Unsaturated IBC (155-355) mcg/dl Transferrin % Sat (20-50) % Ferritin (8-388) ng/ml Total Bilirubin (0.2-1.0) mg/dl AST (13-39) U/L ALT (7-52) U/L Alkaline Phosphatase (34-104) U/L Troponin I High Sens (0-20) pg/ml Total Protein (6.0-8.3) gm/dl Albumin (3.4-5.0) gm/dl Globulin (2.5-4.0) gm/dl Albumin/Globulin Ratio (0.9-2) Lipase (11-82) U/L POC Stool Occult Blood Positive A (Negative) Blood Type Blood Type Recheck Antibody Screen Crossmatch Administered Medications Pantoprazole Sodium 40 mg/ (Dextrose) 100 mls @ 20 mls/hr IV Q5H ANDREI Stop: 07/18/24 18:59 Last Admin: 06/18/24 19:52 Dose: 8 mg/hr, 20 mls/hr Documented By: BRAD Discontinued Medications Pantoprazole Sodium 80 mg/ (Dextrose) 120 mls @ 480 mls/hr IV NOW ONE Stop: 06/18/24 18:56 Last Infusion: 06/18/24 19:49 Dose: Infused Documented By: Admin: 06/18/24 19:29 Dose: 480 mls/hr Documented By: BRAD Pantoprazole Sodium (Pantoprazole Bolus/Drip) 1 each IV NOW STA Stop: 06/18/24 18:43 Last Admin: 06/18/24 19:53 Dose: Not Given Documented By: BRAD Imaging Data Radiologist's Impression: Chest X-Ray 06/18/24 18:32 XR chest 1V portable CLINICAL HISTORY: Chest pain, nonspecific COMPARISON STUDY: Chest CT the 2023. Chest radiograph March 22, 2024. FINDINGS: Lung volumes are normal. There is no consolidation to suggest pneumonia. Apparent hazy right infrahilar opacity is similar to prior exams and likely artifactual. There is no pneumothorax or pleural effusion. Cardiac size is normal. Mediastinal contours are normal. There is no evidence for pulmonary edema. IMPRESSION: No acute cardiopulmonary findings. ACT 112: Negative or not required by law. Electronically signed by: Yandel Meléndez M.D. 06/18/2024 6:57 PM Discharge Plan Visit Data Chief Complaint: Abnormal Labs/Diagnostic Testing Stated Complaint: ABN BLOOD COUNT/LABS ED Provider: Marc Robin Discharge Problem: Melena, Symptomatic anemia Patient Disposition: Admitted As Inpatient Discharge Instructions Interventions: ED Discharge Assessment Last Done: 06/18/24 23:18
[2024-06-18 19:44] LABS: Albumin Level 4.5 gm/dl (3.4-5.0); BUN Creatinine Ratio 11.8 (10-20); Bilirubin,Total 0.3 mg/dl (0.2-1.0); Creatinine Clr Calc Pharmacy 74.7 ml/min; Est GFR (African American) 74.8 ml/min; Est GFR (Non-African American) 64.5 ml/min; Globulin 2.3 gm/dl (2.5-4.0); Potassium 4.3 mmol/L (3.5-5.1); Total Protein 6.8 gm/dl (6.0-8.3)
[2024-06-18 19:45] LABS: Hematocrit (blood only) 21.6 % (42.0-52.0); Hemoglobin 6.6 g/dl (14.0-18.0); Mean Corpuscular Hemoglobin 24.9 pg (25.0-34.0); Mean Corpuscular Hgb Conc 30.6 g/dL (32.0-36.0); Mean Corpuscular Volume 81.5 fL (80.0-100.0); Mean Platelet Volume 9.5 fL (9.4-12.4); Platelet Count 365 K/uL (130-400); RDW Coefficient of Variation 14.5 % (11.5-14.5); RDW Standard Deviation 43.1 fL (36.4-46.3); Red Blood Count 2.65 M/uL (4.70-6.10); White Blood Count 7.54 K/ul (4.8-10.8)
[2024-06-18] MEDS: PANTOprazole 40 MG in DEXTROSE 5% MINI-B 100 ML IV SCH (19:46)
[2024-06-18] MEDS: PANTOPRAZOLE BOLUS/DRIP IV STA (19:48)
[2024-06-18 19:50] LABS: Basophils # (auto) 0.05 K/uL (0.00-0.20); Basophils % (auto) 0.7 %; Eosinophils # (auto) 0.13 K/uL (0.00-0.50); Eosinophils % (auto) 1.7 %; Immature Granulocytes # (auto) 0.02 K/uL (0.01-0.20); Immature Granulocytes % (auto) 0.3 %; Lymphocytes # (auto) 2.13 K/uL (1.20-3.40); Lymphocytes % (auto) 28.2 %; Monocytes # (auto) 0.82 K/uL (0.11-0.59); Monocytes % (auto) 10.9 %; Neutrophils # (auto) 4.39 K/uL (1.40-6.50); Neutrophils % (auto) 58.2 %; Polychromasia 1+; Troponin I High Sensitivity 23.7 pg/ml (0-20)
[2024-06-18] MEDS ORDERED: SODIUM CHLORIDE 0.9% 250 ML IV PRN (19:52)
[2024-06-18 20:01] LABS: Partial Thromboplastin Ratio 0.9; Partial Thromboplastin Time 25 Seconds (21-31); Prothrombin Time 10.6 Seconds (9.0-12.0)
--- NOTE | 2024-06-18 20:03 | History & Physical Report ---
Date of Service June 18, 2024 Assessment & Plan (1) Upper GI bleed: Plan: Black tarry stool x 3 weeks Hgb 6.6 on arrival (dropped from 14.2 on 03/24/2024) IV Protonix drip started in the ED 2u PRBCs ordered, transfused H&H ordered for 30min after second unit is completed Hold all p.o. medications for now Gastroenterology consulted IV acetaminophen as needed for pain/fever IV antiemetics as needed for nausea/vomiting A.m. CBC, BMP, Mag, troponin (2) Type 2 diabetes mellitus: Plan: Last A1c at 6.6% on 02/29/2024 Glucose 100 on admission Hold metformin Will defer insulin as patient will be n.p.o. for the time being BSG q4h, then BSG ACHS after Adjust regimen as needed AM A1c (3) Presence of drug coated stent in LAD coronary artery: Plan: Per cardiology recommendation, will hold Brilinta and aspirin on the evening of 06/18 and morning of 06/19 Reinstitution of antiplatelet therapy pending GI evaluation (4) Tobacco abuse: Plan: Patient is a current everyday tobacco cigarette smoker Continue to encourage smoking cessation (5) History of ST elevation myocardial infarction (STEMI): Plan: History of STEMI March 2024 (6) Hypertension: Plan: Hold all antihypertensive medications (7) Anemia: Plan: FE panel ordered, pending (8) Hyperlipidemia: (9) GERD (gastroesophageal reflux disease): Plan Disposition: Admit to PCU telemetry Full code N.p.o. VTE PPx: Hold chemical DVT PPx in the setting of GI bleed; SCDs History of Present Illness Chief Complaint: Abdominal labs/diagnostic testing Primary Care Provider: Jocelyne Meléndez MD Peter is a 53yo male with PMH of T2DM, CAD, GERD, pheochromocytoma (s/p resection 10/2023), tobacco use, HTN, HLD, and recent STEMI (03/22/2024). He presented on 06/18 at the behest of his cellophane bath mixer for orthostatic hypotension and a reported hemoglobin of 6.9. Patient was being seen by his cellophane bath mixer as he had an upcoming appointment for additional stents to be placed on Wednesday 06/20. He is currently taking aspirin and Brilinta, and has been on these medications since his STEMI in March. Patient is minimally symptomatic at this time, but does endorse dizziness/lightheadedness with movements that began shortly after his STEMI, as well as ongoing fatigue and CASTANO. He endorses dark tarry stool x 3 weeks. No prior history of GI bleeds. He reports he has not taken any iron supplements, Pepto-Bismol, or recent NSAID such as ibuprofen. He does have a history of hemorrhoids. Past surgeries include removal of a pheochromocytoma; he denies prior gastric surgeries. No history of diverticulitis, Crohn's disease, or ulcerative colitis to his knowledge. He does have diabetes, and reports good compliance with taking his regular medications; only recent change in medication was that his lisinopril was increased from 5 mg to 2.5 mg for low blood pressure. Took regular medications this morning. Patient reports he may have been on Brilinta previously in the past after having pheochromocytoma removed, but was discontinued on it after 3 weeks. Other than that, he does not normally take antiplatelets. He denies any recent falls or injuries to the abdomen or pelvis. No prior history of gastric ulcers. He reports he had an EGD/colonoscopy done around a year ago. He is a current everyday tobacco cigarette smoker, but has been cutting down from 1.5 PPD to 6 cigarettes daily. He denies any recent alcohol use. No prior blood transfusions. Patient's vitals are stable, admission. ED course: IV Protonix drip 2u pRBCs ordered ROS: Patient endorses ongoing cough, fatigue, lightheadedness with bending over/movements, chest pain and SOB with exertion, and melena x 3 weeks. Patient denies fever, chills, night-sweats, chest pain at present, SOB at rest, pleuritic CP, hemoptysis, abdominal pain, N/V/D, or BRB in stool. Please see Dr. Dennison's attestation for any changes to treatment plan overnight. Allergies Allergy/AdvReac Type Severity Reaction Status Date / Time No Known Allergies Allergy Verified 06/18/24 12:36 Home Medications Medication Instructions Recorded Confirmed Type sildenafil 50 mg tablet See Rx Instructions PO DAILY PRN 02/29/24 06/18/24 Rx sexual activity #10 tabs aspirin 81 mg tablet,delayed 81 mg PO QAM #30 tabs 03/24/24 06/18/24 Rx release blood-glucose meter,continuous #1 ea 03/28/24 06/18/24 Rx (Dexcom G7 Transmission Design Engineer) ticagrelor 90 mg tablet (Brilinta) 90 mg PO BID #60 tabs 04/08/24 06/18/24 Rx carvedilol 3.125 mg tablet 3.125 mg PO BID #180 tabs 04/15/24 06/18/24 Rx rosuvastatin 40 mg tablet 40 mg PO DAILY #90 tabs 04/15/24 06/18/24 Rx blood-glucose sensor (Dexcom G7 #3 ea 06/18/24 Rx Sensor device) famotidine 40 mg tablet 40 mg PO QPM 06/18/24 06/18/24 History lisinopril 5 mg tablet 5 mg PO DAILY 06/18/24 06/18/24 History metformin 500 mg tablet,extended 500 mg PO DAILY 06/18/24 06/18/24 History release 24 hr pantoprazole 40 mg tablet,delayed 40 mg PO DAILY 06/18/24 06/18/24 History release varenicline 1 mg tablet (Chantix 1 mg PO BID #60 tabs 06/18/24 06/18/24 Rx Continuing Month Box) Past Med/Surg History Problem List Symptomatic anemia (Acute) Melena (Acute) Anemia History of ST elevation myocardial infarction (STEMI) Upper GI bleed Stable angina pectoris Orthostatic hypotension Presence of drug coated stent in LAD coronary artery Ischemic cardiomyopathy Tobacco abuse CAD (coronary artery disease) Type 2 diabetes mellitus (Chronic) Chronic sinusitis (Chronic) GERD (gastroesophageal reflux disease) (Chronic) Sensorineural hearing loss (SNHL) of both ears (Chronic) Hyperlipidemia (Chronic) Hypertension (Chronic) Medical History STEMI (ST elevation myocardial infarction) Pheochromocytoma s/p resection October 2023 Surgical History History of cardiac cath History of heart artery stent History of dental surgery Family History Father Cerebral hemorrhage Hypertension Grandmother (Maternal) Diabetes Myocardial infarction Grandfather (Paternal) Myocardial infarction Denies family history of Ovarian cancer Prostate cancer Breast cancer Colorectal cancer Social History (Updated 06/19/24 @ 07:58 by Logan Berry MD) Smoking Status: Current every day smoker Tobacco Type: Cigarettes Age Started Using Tobacco: 19; packs per day: 1; Cigarettes Per Day: 6; Second Hand Exposure: No; Do You Dip or Chew Tobacco: No; Hx Alcohol Use: Yes (Rare) Alcohol type: hard liquor Hx Substance Use: No Preferred Language: Croatian Communication Ability: Effective Scutcher Tender Required: No Beliefs That Will Affect Care: None marital status: Current Living Situation: Alone Current Living Situation Comment: lives at home by self current occupational status: employed 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 [employer] Feels Safe at Home: Yes Diet: diabetic, low salt and regular caffeine: Yes Dental Care, Regularly: Yes Physical Activity Frequency: 1-2 Times per Week Seatbelt Use: always Sunscreen Use: No Assistive Devices: None Review of Systems Review of Systems: See HPI above Physical Exam Physical Exam: General: no acute distress; non-toxic appearing; cooperative; SpO2 99% on RA HEENT: normocephalic, atraumatic; no scleral icterus; PERRLA; vision and hearing grossly intact Neck: supple; no lymphadenopathy; trachea midline Skin: Pallor; warm, dry without signs of tenting; no cyanosis; no rashes, bruising, lesions, or erythema noted CV: chest wall NTP; RRR; S1/S2 normal; no murmurs/rubs/gallops; pulses intact and symmetric at radial, DP, and PT Lungs: no acute respiratory distress; symmetrical chest wall expansion; clear breath sounds across all lung michele w/o adventitious sounds; no wheezing ABD: Soft, NTP in all 4 quadrants; BS present; no rebound/guarding; no distention; no bruising on the abdomen or flanks bilaterally MSK: no tics or fasciculations; no edema noted in the LEs b/l, nonerythematous Neuro: A&Ox3; normal mood and affect; fluent speech; no focal deficits; sensation grossly intact in the LEs b/l Results & Data Results & Data Vital Signs (Past 12 Hours) Vital Signs Temp Pulse Pulse Resp BP BP Pulse Ox 06/18/24 19:34 86 17 99 06/18/24 18:34 74 20 100 06/18/24 18:29 79 19 127/77 99 06/18/24 18:14 36.5 C 83 18 118/67 100 O2 Del Method 06/18/24 19:34 Room Air 06/18/24 18:34 Room Air 06/18/24 18:29 Room Air 06/18/24 18:14 Room Air Laboratory Results Abnormal lab results 06/18/24 Range/Units 18:48 RBC 2.65 L (4.70-6.10) M/uL Hgb 6.6 L* (14.0-18.0) g/dl Hct 21.6 L (42.0-52.0) % MCH 24.9 L (25.0-34.0) pg MCHC 30.6 L (32.0-36.0) g/dL [place] # (Auto) 0.82 H (0.11-0.59) K/uL Chloride 108 H (98-107) mmol/L Glucose 100 H (70-99(Fasting)) mg/dl Troponin I High Sens 23.7 H (0-20) pg/ml Globulin 2.3 L (2.5-4.0) gm/dl Diagnostic Findings Chest X-Ray 06/18/24 18:32 XR chest 1V portable CLINICAL HISTORY: Chest pain, nonspecific COMPARISON STUDY: Chest CT the 2023. Chest radiograph March 22, 2024. FINDINGS: Lung volumes are normal. There is no consolidation to suggest pneumonia. Apparent hazy right infrahilar opacity is similar to prior exams and likely artifactual. There is no pneumothorax or pleural effusion. Cardiac size is normal. Mediastinal contours are normal. There is no evidence for pulmonary edema. IMPRESSION: No acute cardiopulmonary findings. ACT 112: Negative or not required by law. Electronically signed by: Yandel Meléndez M.D. 06/18/2024 6:57 PM ECG Additional Comments: ECG revealed NSR at 77 bpm; QTc 405 Code Status & VTE Plan Code Status Full code VTE Prophylaxis Plan VTE Prophylaxis will be ordered: Yes Supervising Physician Co-Signing Physician Notes Attending addendum: I have physically seen this patient, have supervised the MELBA's activities, and agree with the H&P unless as otherwise noted. Assessment and Plan: Upper GI bleed/symptomatic anemia- Patient is a black tarry stools for 3 weeks Hemoglobin 6.6 on arrival, with baseline hemoglobin 14.2 Continue Protonix drip begun in the ED To receive 2 units PRBCs, with 1 on hold H&H every 4 hours Acetaminophen 1 g IV every 8 hours as needed for mild pain or fever Zofran 4 mg IV every 6 hours as needed Consult gastroenterology Diabetes mellitus- NPO Holding metformin Placed on Accu-Cheks with NovoLog SSI Check hemoglobin A1c LAD stent/hypertension/CAD/history of STEMI- Hold Brilinta and aspirin as discussed with cardiology, until assessed by gastro enterology Hold carvedilol and lisinopril due to relatively low blood pressure Follow on telemetry PG Care Time/CCT Total # of Minutes Spent Total Time Spent with Patient: Total time spent is greater than 50% in coordination of care (as documented) at patient's floor/unit and/or counseling patient: Coding [place] [address] INT INP/OBS CARE 3/75MIN Patient Type Established Medical Decision Making High Complexity Diagnoses Upper GI bleed K92.2 Type 2 diabetes mellitus E11.9 Presence of drug coated stent in LAD coronary artery Z95.5 Tobacco abuse Z72.[address] elevation myocardial infarction (STEMI) I25.2 Primary hypertension I10 Hypertension type: primary hypertension Anemia D64.9 Hyperlipidemia, unspecified hyperlipidemia type E78.5 Hyperlipidemia type: unspecified GERD (gastroesophageal reflux disease) K21.9 (6) Hypertension Hypertension type: primary hypertension Qualified Code(s): I10 - Essential (primary) hypertension (8) Hyperlipidemia Hyperlipidemia type: unspecified Qualified Code(s): E78.5 - Hyperlipidemia, unspecified
[2024-06-18] MEDS ORDERED: GLUCAGON FOR INJ 1 MG VIAL SQ PRN (22:03)
[2024-06-18] MEDS ORDERED: ONDANSETRON INJ 2 MG/ML 2 ML VIAL IV PRN (22:03)
[2024-06-18] MEDS ORDERED: ACETAMINOPHEN 1,000 MG/100 ML VIAL IV PRN (22:03)
[2024-06-18] MEDS ORDERED: DEXTROSE 50% 50 ML SYRINGE IV PRN (22:03)
[2024-06-19 03:23] LABS: Basophils # (auto) 0.05 K/uL (0.00-0.20); Basophils % (auto) 0.5 %; Eosinophils # (auto) 0.16 K/uL (0.00-0.50); Eosinophils % (auto) 1.8 %; Hematocrit (blood only) 26.9 % (42.0-52.0); Hemoglobin 8.5 g/dl (14.0-18.0); Immature Granulocytes # (auto) 0.02 K/uL (0.01-0.20); Immature Granulocytes % (auto) 0.2 %; Lymphocytes # (auto) 2.61 K/uL (1.20-3.40); Lymphocytes % (auto) 28.6 %; Mean Corpuscular Hemoglobin 26.1 pg (25.0-34.0); Mean Corpuscular Hgb Conc 31.6 g/dL (32.0-36.0); Mean Corpuscular Volume 82.5 fL (80.0-100.0); Mean Platelet Volume 9.5 fL (9.4-12.4); Monocytes # (auto) 1.02 K/uL (0.11-0.59); Monocytes % (auto) 11.2 %; Neutrophils # (auto) 5.27 K/uL (1.40-6.50); Neutrophils % (auto) 57.7 %; Platelet Count 331 K/uL (130-400); RDW Coefficient of Variation 14.6 % (11.5-14.5); RDW Standard Deviation 43.6 fL (36.4-46.3); Red Blood Count 3.26 M/uL (4.70-6.10); White Blood Count 9.13 K/ul (4.8-10.8)
[2024-06-19 03:36] LABS: BUN Creatinine Ratio 11.5 (10-20); Calcium 8.8 mg/dl (8.6-10.3); Est GFR (African American) 78.5 ml/min; Est GFR (Non-African American) 67.7 ml/min; Magnesium 2.2 mg/dl (1.7-2.4); Potassium 3.9 mmol/L (3.5-5.1)
[2024-06-19 07:17] LABS: Estimated Average Glucose 111 mg/dl; Hemoglobin A1C 5.5 % (4.5-5.6)
--- NOTE | 2024-06-19 07:54 | Gastrointestinal Consultation ---
Date of Consultation June 19, 2024 Assessment & Plan (1) Symptomatic anemia: No overt signs of GI blood loss as even though he states his stools have been dark brown - this is normal according to him. Plan Agree with support with transfusion of PRBCs and/or iron Empiric PPI EGD and possible colonoscopy - will start with EGD and if negative consider colonoscopy. Both of these procedures, the alternatives including no work up or treatment, risks and benefits were discussed. Among the risks discussed included cardiorespiratory suppression, aspiration, bleeding, failure to diagnose cancer or other pathology and perforation requiring surgery. In addition we discussed that if specimens are obtained it may be deemed beneficial to send these for genetic/DNA testing. The patient claimed to understand all that was discussed, consented to all and all of his questions were answered. History of Present Illness Reason for Consultation: Anemia. Melena Requesting Physician: Иван Nunez Attending Physician: Shweta Oneil MD History of Present Illness 53 yo WM who was scheduled for cardiac stent placement, had some preop labs performed by his biodiesel product development manager and was then contacted by their office and told to come to the hospital because of a significantly low blood count. He states his stools have been dark brown but not black and these have not changed in color or frequency. He denies any vomiting or abdominal pain or hematochezia. He had a STEMI apparently in March,. Allergies Allergy/AdvReac Type Severity Reaction Status Date / Time No Known Allergies Allergy Verified 06/18/24 12:36 Home Medications Medication Instructions Recorded Confirmed Type sildenafil 50 mg tablet See Rx Instructions PO DAILY PRN 02/29/24 06/18/24 Rx sexual activity #10 tabs aspirin 81 mg tablet,delayed 81 mg PO QAM #30 tabs 03/24/24 06/18/24 Rx release blood-glucose meter,continuous #1 ea 03/28/24 06/18/24 Rx (Dexcom G7 Communications Editor) ticagrelor 90 mg tablet (Brilinta) 90 mg PO BID #60 tabs 04/08/24 06/18/24 Rx carvedilol 3.125 mg tablet 3.125 mg PO BID #180 tabs 04/15/24 06/18/24 Rx rosuvastatin 40 mg tablet 40 mg PO DAILY #90 tabs 04/15/24 06/18/24 Rx blood-glucose sensor (Dexcom G7 #3 ea 06/18/24 Rx Sensor device) famotidine 40 mg tablet 40 mg PO QPM 06/18/24 06/18/24 History lisinopril 5 mg tablet 5 mg PO DAILY 06/18/24 06/18/24 History metformin 500 mg tablet,extended 500 mg PO DAILY 06/18/24 06/18/24 History release 24 hr pantoprazole 40 mg tablet,delayed 40 mg PO DAILY 06/18/24 06/18/24 History release varenicline 1 mg tablet (Chantix 1 mg PO BID #60 tabs 06/18/24 06/18/24 Rx Continuing Month Box) Patient History Medical History STEMI (ST elevation myocardial infarction) Pheochromocytoma Surgical History History of cardiac cath History of heart artery stent History of dental surgery Family History Father Cerebral hemorrhage Hypertension Grandmother (Maternal) Diabetes Myocardial infarction Grandfather (Paternal) Myocardial infarction Denies family history of Ovarian cancer Prostate cancer Breast cancer Colorectal cancer Social History (Updated 06/19/24 @ 07:58 by Logan Berry MD) Smoking Status: Current every day smoker Tobacco Type: Cigarettes Age Started Using Tobacco: 19; packs per day: 1; Cigarettes Per Day: 6; Second Hand Exposure: No; Do You Dip or Chew Tobacco: No; Hx Alcohol Use: Yes (Rare) Alcohol type: hard liquor Hx Substance Use: No Preferred Language: French Communication Ability: Effective Casino Cage Supervisor Required: No Beliefs That Will Affect Care: None marital status: Current Living Situation: Alone Current Living Situation Comment: lives at home by self current occupational status: employed 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 [employer] Feels Safe at Home: Yes Diet: diabetic, low salt and regular caffeine: Yes Dental Care, Regularly: Yes Physical Activity Frequency: 1-2 Times per Week Seatbelt Use: always Sunscreen Use: No Assistive Devices: Glasses and Hearing Aid - Bilateral Review of Systems Review of Systems: Unremarkable except per HPI and below Physical Exam Physical Exam: WD WN WM NAD Constitutional: NAD Eyes: Sclera anicteric Conjunctiva pale ENMT: No sublinqual icterus Respiratory: Clear anteriorly Cardiovascular: RRR Gastrointestinal (Abdomen): NL BS, soft, nontender Musculoskeletal: Neg CCE Skin: Warm and dry Neurologic: A/O Results & Data Vital Signs (Past 12 Hours) Vital Signs Temp Pulse Pulse Resp BP BP Pulse Ox 06/19/24 07:30 36.5 C 76 18 99/64 L 96 06/19/24 02:45 36.6 C 69 18 93/57 L 98 06/19/24 02:03 36.6 C 72 16 98/65 L 96 06/19/24 00:40 71 06/19/24 00:38 36.6 C 74 16 100/67 98 06/19/24 00:08 36.7 C 70 14 107/66 98 06/19/24 00:06 36.7 C 70 14 107/66 98 06/18/24 23:53 36.4 C L 75 16 104/67 97 06/18/24 23:32 36.7 C 72 16 104/64 97 06/18/24 23:18 36.8 C 73 16 99/65 L 95 06/18/24 23:00 36.8 C 73 16 100/64 98 06/18/24 22:53 06/18/24 22:53 36.4 C L 69 14 104/64 99 06/18/24 22:03 36.4 C L 69 14 104/64 99 06/18/24 22:03 06/18/24 22:00 36.4 C L 69 14 104/64 99 06/18/24 21:30 36.8 C 75 19 91/67 L 99 06/18/24 21:15 36.8 C 76 17 109/64 99 06/18/24 21:03 66 20 100 06/18/24 21:00 114/67 06/18/24 20:58 36.8 C 68 14 119/59 L 100 06/18/24 20:54 77 22 99 06/18/24 20:53 110/73 06/18/24 20:53 110/73 06/18/24 20:53 110/73 06/18/24 20:51 76 18 100 06/18/24 20:45 85 21 99 06/18/24 20:33 68 18 100 06/18/24 20:21 75 15 99 06/18/24 20:03 77 13 109/70 99 06/18/24 20:01 109/70 06/18/24 19:57 79 24 99 Pulse Ox O2 Del Method O2 Del Method 06/19/24 07:30 Room Air 06/19/24 02:45 Room Air 06/19/24 02:03 06/19/24 00:40 06/19/24 00:38 06/19/24 00:08 06/19/24 00:06 06/18/24 23:53 06/18/24 23:32 06/18/24 23:18 06/18/24 23:00 06/18/24 22:53 Room Air 06/18/24 22:53 Room Air 06/18/24 22:03 Room Air 06/18/24 22:03 99 Room Air 06/18/24 22:00 06/18/24 21:30 06/18/24 21:15 06/18/24 21:03 Room Air 06/18/24 21:00 06/18/24 20:58 06/18/24 20:54 Room Air 06/18/24 20:53 06/18/24 20:53 06/18/24 20:53 06/18/24 20:51 06/18/24 20:45 06/18/24 20:33 06/18/24 20:21 06/18/24 20:03 Room Air 06/18/24 20:01 06/18/24 19:57 Laboratory Results Reviewed: Pertinent findings: Normal MCV anemia - improved post transfusion. PG Care Time/CCT Total # of Minutes Spent Total Time Spent with Patient: Total time spent is greater than 50% in coordination of care (as documented) at patient's floor/unit and/or counseling patient: Coding Level of Care Code 92885 IN/OBS CONSULT LVL 4,60M Diagnoses Symptomatic anemia D64.9
--- NOTE | 2024-06-19 08:52 | Anesthesiology Consultation ---
Date of Service June 19, 2024 Assessment & Plan Chart Review Chart Review: Acceptable Risk for Surgery, Patient NOT seen in Pre Admission Testing and entry level drafter initiated Consults Requested none Proposed Anesthesia Anesthesia Type: MAC History Surgery Operation Date: 06/19/24 16:30 Proposed Procedures p Esophagogastroduodenoscopy Jamal Berry MD Height/Weight Height: 6 ft 1 in Weight: 83 kg Allergies Allergy/AdvReac Type Severity Reaction Status Date / Time No Known Allergies Allergy Verified 06/18/24 12:36 Medications Home Medications Medication Instructions Recorded Confirmed Last Taken sildenafil 50 mg tablet See Rx Instructions PO DAILY PRN 02/29/24 06/18/24 Unknown sexual activity #10 tabs aspirin 81 mg tablet,delayed 81 mg PO QAM #30 tabs 03/24/24 06/18/24 Unknown release blood-glucose meter,continuous #1 ea 03/28/24 06/18/24 Unknown (Dexcom G7 Ice Handler) ticagrelor 90 mg tablet (Brilinta) 90 mg PO BID #60 tabs 04/08/24 06/18/24 Unknown carvedilol 3.125 mg tablet 3.125 mg PO BID #180 tabs 04/15/24 06/18/24 Unknown rosuvastatin 40 mg tablet 40 mg PO DAILY #90 tabs 04/15/24 06/18/24 Unknown blood-glucose sensor (Dexcom G7 #3 ea 06/18/24 Unknown Sensor device) famotidine 40 mg tablet 40 mg PO QPM 06/18/24 06/18/24 Unknown lisinopril 5 mg tablet 5 mg PO DAILY 06/18/24 06/18/24 Unknown metformin 500 mg tablet,extended 500 mg PO DAILY 06/18/24 06/18/24 Unknown release 24 hr pantoprazole 40 mg tablet,delayed 40 mg PO DAILY 06/18/24 06/18/24 Unknown release varenicline 1 mg tablet (Chantix 1 mg PO BID #60 tabs 06/18/24 06/18/24 Unknown Continuing Month Box) Active Medications Generic Name Dose Route Start Last Admin Trade Name Freq PRN Reason Stop Dose Admin Pantoprazole Sodium 40 mg/ 100 mls @ 20 mls/hr 06/18/24 19:00 06/19/24 05:59 Dextrose IV 07/18/24 18:59 8 mg/hr Q5H ANRDEI 20 mls/hr Administration 8 MG/HR Past Medical History Medical History STEMI (ST elevation myocardial infarction) Pheochromocytoma s/p resection October 2023 Past Family History Family History Father Cerebral hemorrhage Hypertension Grandmother (Maternal) Diabetes Myocardial infarction Grandfather (Paternal) Myocardial infarction Denies family history of Ovarian cancer Prostate cancer Breast cancer Colorectal cancer Past Surgical History Surgical History History of cardiac cath History of heart artery stent History of dental surgery Social History Smoking Status: Current every day smoker tobacco type: cigarettes Smoking cigarettes per day: 6 Do You Dip or Chew Tobacco: No Hx Alcohol Use: Yes (Rare) Alcohol type: hard liquor alcohol intake frequency: a few times a week Hx Substance Use: No substance use type: does not use Physical Exam Vital Signs Last Vital Signs Temp 36.5 C 06/19/24 07:30 Pulse 76 06/19/24 07:30 Resp 18 06/19/24 07:30 BP 99/64 L 06/19/24 07:30 Pulse Ox 96 06/19/24 07:30 O2 Del Method Room Air 06/19/24 07:30 Testing Laboratory Results 06/19/24 02:50 06/19/24 02:50 PT 10.6 Seconds (9.0-12.0) 06/18/24 18:48 INR 1.0 (0.9-1.1) 06/18/24 18:48 APTT 25 Seconds (21-31) 06/18/24 18:48 Hemoglobin A1c 5.5 % (4.5-5.6) 06/19/24 02:50 Blood Type O Negative 06/18/24 19:04 Antibody Screen NEGATIVE 06/18/24 19:04 06/18/24 22:20 POC Glucose 103 H Electrocardiogram Date: 06/18/24 Findings: + NSR @ (77) and + MO (old anteroseptal infarct) Chest X-Ray Date: 06/18/24 CLINICAL HISTORY: Chest pain, nonspecific COMPARISON STUDY: Chest CT the 2023. Chest radiograph March 22, 2024. FINDINGS: Lung volumes are normal. There is no consolidation to suggest pneumonia. Apparent hazy right infrahilar opacity is similar to prior exams and likely artifactual. There is no pneumothorax or pleural effusion. Cardiac size is normal. Mediastinal contours are normal. There is no evidence for pulmonary edema. IMPRESSION: No acute cardiopulmonary findings. Echocardiogram Date: 06/02/24 EF: 50% LV Function: normal (low normal) RWMA: + none
[2024-06-19] MEDS: LACTATED RINGER'S 1,000 ML IV SCH (09:34)
--- NOTE | 2024-06-19 09:43 | Cardiology Consultation ---
Date of Consultation June 19, 2024 Assessment & Plan (1) CAD (coronary artery disease): Mr. Guerrier is a 53-year-old male with a history of Multi-vessel CAD s/p Acute Anterior NH 03/22/24 s/p LAD PCI, and an Ischemic Cardiomyopathy , Type 2 DM, HTN, Dyslipidemia, Tobacco Use, GERD and Pheochromocytoma. - Admitted for severe anemia suspecting GI Cause - H/O PCI with drug eluting stent in situ in LAD for STEMI on 03/22. - Post PCI : Stable apart from persistent chest heaviness; not typical with NH but can be Anginal pain. Repeat PCI was planned for residual CAD and his symptoms of possible Angina. - Some of his symptoms could be explained by his severe anemia as well. Exercise intolerance in cardiac rehab, non typical chest pain can be because of anemia. - Serial Troponin i.e. 23-26 pg/ml since admission is not indicative Acute cardiac event at this time. To remind, his Trop[place]I [place] [id number] - Post Cath Hb: March 24 was 14.2 --------< March 22, 2024 was 15.9. Post Cath Echo: 06/02 LVEF: 50%, previous noted wall motion abnormality not there. - Case discussed with Dr. Blake as well this AM, we reviewed his PCI images; he definitely has some residual narrowing of non stented vessels including 95% proximal RCA, sequential 80% mid RCA, and an 80% proximal LCx stenoses. - Given hemodynamically unstable status because of anemia; PCI will be deferred, will reevaluate him after GI intervention. - This AM patient has no active chest pain at rest, no features of heart failure or arrhythmia. Recommend the followin. Given hemodynamically unstable severe anemia; PCI will be deferred, will reevaluate him after GI intervention. 2. As his blood pressure is borderline low today, can continue holding Lisinopril. Restart once stable. 3. Hold Aspirin 81 mg daily and Brilinta 90 mg BID : Hold until next recommendation 4. Continue holding Coreg/ Imdur ER/ Rosuvastatin/ Lasix: Hold until GI evaluation Supervising Physician Co-Signing Physician Notes Patient seen and examined. Agree with assessment and plan as outlined by Dr. Johnson. Impression 1. Exertional angina pectoris. 2. Known CAD, s/p LAD SANCHEZ, March 2024. 3. Profound anemia, presumed GI bleed. 4. Resolved ischemic cardiomyopathy. Suggestions: 1. GI workup first priority. 2. Will likely need a cardiac catheterization, timing to be determined. History of Present Illness Reason for Consultation: CAD S/P Stent, Chest heavyness at present. Attending Physician: Shweta Oneil MD History of Present Illness Mr. Guerrier is a 53-year-old male with a history of Multi-vessel CAD s/p Acute Anterior NH 03/22/24 s/p LAD PCI, and an Ischemic Cardiomyopathy , Type 2 DM, HTN, Dyslipidemia, Tobacco Use, GERD and Pheochromocytoma admitted ye sterday after he was suggested by our team to come to ED because of his symptoms of orthostatic hypotension and lab report suggestive of severe anemia( Hb: 6.9). He endorses feeling of running down with chest heaviness ever since his PCI. He says his chest feels heavy when he walks around 75-100 yards distance and same happened during cardiac rehab. He felt same heaviness on HR above 107-110 during rehab. Symptoms sometimes last up to 20 minutes after he sits down and rests. He occasionally has positional light headedness after he bends over to tie his shoe but denies crushing type or severe chest pain at rest, any associated nausea, vomiting, diaphoresis, dyspnea. He is compliant with his medications as well. No symptoms of heart failure like swelling of feet, Shortness of breath, orthopnea or PND or any other features of arrhythmia like palpitation, abnormal heart racing, slowing of heart he noticed. On reviewing his other symptoms, he endorses passing black tarry stool for 3 wee ks but no h/o Iron intake, no h/o fresh rectal bleeding. He denies any vomiting or abdominal pain or weight loss or grossly bloody stool. He is usually constipated, bur bladder habit is normal. Previous history: Patient initially presented to the hospital on 03/22/2024 with the acute onset of chest discomfort. Echocardiogram LVEF of 30%-35% with distal LAD territory hypokinesis to akinesis He underwent successful percutaneous intervention. CARDIAC CATHETERIZATION 03/22/24: The RCA is codominant there is a 95% proximal stenosis, sequential 80% lesions in the mid RCA, small right dominant PDA is totally occluded and fills via [id number] collaterals. LMCA is short and normal bifurcating into a type III LAD and LCx. The proximal LAD is normal it gives off a large branching diagonal which actually takes the course of an intermediate. This vessel has been 90% stenosis at its origin. The LCx system has a segmental 80% narrowing proximally. Immediately distal to this branch there is a 50% narrowing in the LAD followed by a second diagonal branch that has a 70% stenosis at its origin. The LAD distal to the second branch is totally occluded. Post Cath Hb: March 24 was 14.2 < March 22, 2024 was 15.9. Post Cath Echo: 06/02 LVEF: 50%, previous noted wall motion abnormality not there As per Dr. Escamilla note: Post Cath Residual disease including the 95% proximal RCA, sequential 80% mid RCA, and an 80% proximal LCx stenoses. PCI was planned this week with Dr. Ugarte. 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) ticagrelor 90 mg tablet (Brilinta) 90 mg PO BID #60 tabs 04/08/24 06/18/24 Rx carvedilol 3.125 mg tablet 3.125 mg PO BID #180 tabs 04/15/24 06/18/24 Rx rosuvastatin 40 mg tablet 40 mg PO DAILY #90 tabs 04/15/24 06/18/24 Rx blood-glucose sensor (Dexcom G7 #3 ea 06/18/24 Rx Sensor device) famotidine 40 mg tablet 40 mg PO QPM 06/18/24 06/18/24 History lisinopril 5 mg tablet 5 mg PO DAILY 06/18/24 06/18/24 History metformin 500 mg tablet,extended 500 mg PO DAILY 06/18/24 06/18/24 History release 24 hr pantoprazole 40 mg tablet,delayed 40 mg PO DAILY 06/18/24 06/18/24 History release varenicline 1 mg tablet (Chantix 1 mg PO BID #60 tabs 06/18/24 06/18/24 Rx Continuing Month Box) Patient History Medical History STEMI (ST elevation myocardial infarction) Pheochromocytoma s/p resection October 2023 Surgical History History of cardiac cath History of heart artery stent History of dental surgery Family History Father Cerebral hemorrhage Hypertension Grandmother (Maternal) Diabetes Myocardial infarction Grandfather (Paternal) Myocardial infarction Denies family history of Ovarian cancer Prostate cancer Breast cancer Colorectal cancer Social History (Updated 06/19/24 @ 07:58 by Logan Berry MD) Smoking Status: Current every day smoker Tobacco Type: Cigarettes Age Started Using Tobacco: 19; packs per day: 1; Cigarettes Per Day: 6; Second Hand Exposure: No; Do You Dip or Chew Tobacco: No; Hx Alcohol Use: Yes (Rare) Alcohol type: hard liquor Hx Substance Use: No Preferred Language: Mohawk Communication Ability: Effective Workcell Operator Required: No Beliefs That Will Affect Care: None marital status: Current Living Situation: Alone Current Living Situation Comment: lives at home by self current occupational status: employed 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 [employer] Feels Safe at Home: Yes Diet: diabetic, low salt and regular caffeine: Yes Dental Care, Regularly: Yes Physical Activity Frequency: 1-2 Times per Week Seatbelt Use: always Sunscreen Use: No Assistive Devices: None Review of Systems Review of Systems: As per HPI Physical Exam Physical Exam: Constitutional: Well appearing, No acute distress, PILCCOD: Negative Lying comfortably in bed with propped op position HEENT: Atraumatic, Normocephalic, No conjunctival injection CVS: S1 S2 no murmur, Regular Rhythm,No RR or RF delay, no LE edema, JVP normal, No swelling in catheter insertion site of PCI Respiratory: BL equal air entry with NVBS. No rhonchi, wheezes, or crackles. No increased work of breathing GI: Soft, Nondistended, Nontender, Normal Bowel sounds + MSK: No gross deformities noted Skin: Warm, Dry, No rashes Neuro: Alert, Oriented to TPP, No Focal deficit Psych: Mood and Affect congruent, Cooperative on exam Results & Data Vital Signs (Past 12 Hours) Vital Signs Temp Pulse Pulse Resp BP BP Pulse Ox 06/19/24 07:30 36.5 C 76 18 99/64 L 96 06/19/24 02:45 36.6 C 69 18 93/57 L 98 06/19/24 02:03 36.6 C 72 16 98/65 L 96 06/19/24 00:40 71 06/19/24 00:38 36.6 C 74 16 100/67 98 06/19/24 00:08 36.7 C 70 14 107/66 98 06/19/24 00:06 36.7 C 70 14 107/66 98 06/18/24 23:53 36.4 C L 75 16 104/67 97 06/18/24 23:32 36.7 C 72 16 104/64 97 06/18/24 23:18 36.8 C 73 16 99/65 L 95 06/18/24 23:00 36.8 C 73 16 100/64 98 06/18/24 22:53 06/18/24 22:53 36.4 C L 69 14 104/64 99 06/18/24 22:03 36.4 C L 69 14 104/64 99 06/18/24 22:03 06/18/24 22:00 36.4 C L 69 14 104/64 99 Pulse Ox O2 Del Method O2 Del Method 06/19/24 07:30 Room Air 06/19/24 02:45 Room Air 06/19/24 02:03 06/19/24 00:40 06/19/24 00:38 06/19/24 00:08 06/19/24 00:06 06/18/24 23:53 06/18/24 23:32 06/18/24 23:18 06/18/24 23:00 06/18/24 22:53 Room Air 06/18/24 22:53 Room Air 06/18/24 22:03 Room Air 06/18/24 22:03 99 Room Air 06/18/24 22:00 PG Care Time/CCT Total # of Minutes Spent Total Time Spent with Patient: Total time spent is greater than 50% in coordination of care (as documented) at patient's floor/unit and/or counseling patient: Coding Level of Care Code 13690 IN/OBS CONSULT LVL 4,60M Diagnoses Coronary artery disease of [place] artery of [place] heart with stable angina pectoris I25.118 Associated angina: with stable angina Coronary Disease-Associated Artery/Lesion type: [place] artery [place] vs. transplanted heart: [place] heart Resident Activity Tracking Resident Involvement: Resident Care Provided Care Provided: Adult Hospital Medicine (1) CAD (coronary artery disease) Associated angina: with stable angina Coronary Disease-Associated Artery/Lesion type: [place] artery [place] vs. transplanted heart: [place] heart Qualified Code(s): I25.118 - Atherosclerotic heart disease of [place] coronary artery with other forms of angina pectoris
--- NOTE | 2024-06-19 10:30 | Hospitalist Progress Note ---
Date of Service June 19, 2024 Assessment & Plan (1) Upper GI bleed: Plan: With acute blood loss anemia With black tarry stool x 3 weeks. Hgb 6.6 on arrival (dropped from 14.2 on 03/24/2024), now up to 8.5 s/p 2 units PRBCs, BPs improved Continue IV Protonix drip Gastroenterology consulted-plan for EGD today and colonoscopy likely tomorrow if no bleeding source found on EGD Start LR at 50 mL/hr while NPO Holding Brilinta and ASA but will need to resume at least Brilinta by tomorrow- consult Cardiology for further recommendations Follow CBC (2) Type 2 diabetes mellitus: Plan: Last A1c at 6.6% on 02/29/2024 and now 5.5% He has a Dexcom on and requests no further finger sticks due to it causing severe pain-glucose venous 95 and he is not on inslin-ok to dc BSGs Hold metformin ADA diet once eating (3) Presence of drug coated stent in LAD coronary artery: Plan: With CAD, recent STEMI 03/2024, on ASA/Brilinta. Had residual disease and was to have repeat cath 06/20 for staged intervention which is now cancelled Trop minimally elevated in low 20s, no current chest pain-having angina x 3 weeks due to severe anemia and now transfused reschedule cath once GIB resolved Consult Cardiology (4) Tobacco abuse: Plan: Patient is a current everyday tobacco cigarette smoker but has cut down to 6 cigg/day start low dose NRT patch Continue to encourage smoking cessation (5) Hypertension: Plan: Previously uncontrolled due to pheochromocytoma which was surgically resected 10/2023, then off almost all meds except low doses of Coreg and lisinopril for CAD/ischemic CM holding meds for hypotension from GIB (6) Anemia: Plan: Acute /subacute blood loss. Ferritin severely low at 3 and trans sat low at 4% Received 2 units PRBCs, consider IV iron prior to discharge Follow CBC (7) Hyperlipidemia: Plan: resume statin once taking po (8) GERD (gastroesophageal reflux disease): Plan: PPI gtt for suspected PUD holding home PPI po Plan Disposition: continued stay PCU Full code VTE PPx: Hold chemical DVT PPx in the setting of GI bleed; SCDs Admission and Anticipated Discharge Date Admission Date: June 18, 2024 Subjective Pt feels hungry but no abd pain. Has pain in finger from accucheck and requests no further BSGs. No current chest pain but was having angina with exertion the last 3 weeks since dark stools started. No heartburn but had chest pressure. Does have some occasional BRBPR from hem orrhoids. Tele with NSR rates 60-80s Discussed his care with Cardio Physical Exam Constitutional: WD/WN, vitals as above Respiratory: normal respiratory effort, lungs clear to auscultation Cardiovascular: RRR, no murmur, no edema Gastrointestinal (Abdomen): normal bowel sounds, soft, nontender, no hepatosplenomegaly Psychiatric: A+Ox3, euthymic affect Results & Data Results & Data Vital Signs (Past 12 Hours) Vital Signs Temp Pulse Pulse Resp BP BP Pulse Ox 06/19/24 07:30 36.5 C 76 18 99/64 L 96 06/19/24 02:45 36.6 C 69 18 93/57 L 98 06/19/24 02:03 36.6 C 72 16 98/65 L 96 06/19/24 00:40 71 06/19/24 00:38 36.6 C 74 16 100/67 98 06/19/24 00:08 36.7 C 70 14 107/66 98 06/19/24 00:06 36.7 C 70 14 107/66 98 06/18/24 23:53 36.4 C L 75 16 104/67 97 06/18/24 23:32 36.7 C 72 16 104/64 97 06/18/24 23:18 36.8 C 73 16 99/65 L 95 06/18/24 23:00 36.8 C 73 16 100/64 98 06/18/24 22:53 06/18/24 22:53 36.4 C L 69 14 104/64 99 O2 Del Method 06/19/24 07:30 Room Air 06/19/24 02:45 Room Air 06/19/24 02:03 06/19/24 00:40 06/19/24 00:38 06/19/24 00:08 06/19/24 00:06 06/18/24 23:53 06/18/24 23:32 06/18/24 23:18 06/18/24 23:00 06/18/24 22:53 Room Air 06/18/24 22:53 Room Air Laboratory Results CBC x 3, BMP, mag reviewed PG Care Time/CCT Total # of Minutes Spent Total Time Spent with Patient: Total time spent is greater than 50% in coordination of care (as documented) at patient's floor/unit and/or counseling patient: Coding Level of Care Code 61664 SUB INP/OBS CARE 3/50MIN Diagnoses Upper GI bleed K92.2 Type 2 diabetes mellitus E11.9 Presence of drug coated stent in LAD coronary artery Z95.5 Tobacco abuse Z72.0 Primary hypertension I10 Hypertension type: primary hypertension Anemia D64.9 Hyperlipidemia, unspecified hyperlipidemia type E78.5 Hyperlipidemia type: unspecified GERD (gastroesophageal reflux disease) K21.9 (5) Hypertension Hypertension type: primary hypertension Qualified Code(s): I10 - Essential (primary) hypertension (7) Hyperlipidemia Hyperlipidemia type: unspecified Qualified Code(s): E78.5 - Hyperlipidemia, unspecified
[2024-06-19] MEDS: SODIUM CHLORIDE 0.9% 500 ML IV SCH (11:44)
--- NOTE | 2024-06-19 12:34 | GI REPORT ---
[facility] Patient: DANUTA FISHER : 1970 Sex at : Male Age: 53 Years Procedure: Upper GI endoscopy Date: 06/19/2024 Attending Physician: Logan Berry MD Referring MD: Jocelyne Meléndez MD Indications: - Gastrointestinal bleeding of unknown origin Medications: - Monitored Anesthesia Care Complications: - No immediate complications. Estimated Blood Loss: - Estimated blood loss: None. Procedure: - ASA Grade Assessment: III - A patient with severe systemic disease. - The egd scope was introduced through the mouth and advanced to the second part of the duodenum. - The upper GI endoscopy was accomplished without difficulty. - The patient tolerated the procedure well. Findings: - The examined esophagus was normal. - The entire examined stomach was normal. - Patchy mildly erythematous mucosa without active bleeding and with no stigmata of bleeding was found in the duodenal bulb. The first and second portion of the duodenum appeared normal. Impression: - Normal esophagus. - Normal stomach. - Erythematous duodenopathy. - No specimens collected. Recommendation: Procedure Code(s): - 52518, Esophagogastroduodenoscopy, flexible, transoral; diagnostic, including collection of specimen(s) by brushing or washing, when performed (separate procedure) Diagnosis Code(s): - K92.2, Gastrointestinal hemorrhage, unspecified - K31.89, Other diseases of stomach and duodenum CPT(R) - 2023 copyright [employer]. All Rights Reserved. The CPT codes, CCI edits and ICD codes generated are intended as suggestions and were generated based on input data. These codes are preliminary and upon furniture repair technician review may be revised to meet current compliance and payer requirements. The provider is responsible for the final determination of appropriate codes, and modifiers. Logan Berry MD This document has been electronically signed. Note Initiated:06/19/2024 Note Completed:06/19/2024 12:34 PM [id number]
--- NOTE | 2024-06-19 12:35 | Communication Note ---
Date of Service: June 19, 2024 POST PROCEDURE NOTE See Provation note for complete report. Summary: Minimal hyperemia of duodenal bulb - otherwise normal exam. No etiology of anemia found. Will prep and do colonoscopy tomorrow.
[2024-06-19] MEDS: NICOTINE 7 MG/24 HR TDSY TD SCH (13:13)
--- NOTE | 2024-06-19 13:16 | Anesthesiology Progress Note ---
Date of Service June 19, 2024 Anesthesia Post Procedure Vital Signs Vital Signs: Temp Pulse Pulse Resp BP BP Pulse Ox 06/19/24 13:06 75 16 101/61 99 06/19/24 12:52 64 16 96/62 L 99 06/19/24 12:38 65 16 94/60 L 99 06/19/24 11:38 36.1 C L 61 16 101/66 96 06/19/24 11:22 36.6 C 62 18 104/67 97 06/19/24 07:30 36.5 C 76 18 99/64 L 96 06/19/24 02:45 36.6 C 69 18 93/57 L 98 06/19/24 02:03 36.6 C 72 16 98/65 L 96 06/19/24 00:40 71 06/19/24 00:38 36.6 C 74 16 100/67 98 06/19/24 00:08 36.7 C 70 14 107/66 98 06/19/24 00:06 36.7 C 70 14 107/66 98 06/18/24 23:53 36.4 C L 75 16 104/67 97 06/18/24 23:32 36.7 C 72 16 104/64 97 06/18/24 23:18 36.8 C 73 16 99/65 L 95 06/18/24 23:00 36.8 C 73 16 100/64 98 06/18/24 22:53 06/18/24 22:53 36.4 C L 69 14 104/64 99 06/18/24 22:03 36.4 C L 69 14 104/64 99 06/18/24 22:03 06/18/24 22:00 36.4 C L 69 14 104/64 99 06/18/24 21:30 36.8 C 75 19 91/67 L 99 06/18/24 21:15 36.8 C 76 17 109/64 99 06/18/24 21:03 66 20 100 06/18/24 21:00 114/67 06/18/24 20:58 36.8 C 68 14 119/59 L 100 06/18/24 20:54 77 22 99 06/18/24 20:53 110/73 06/18/24 20:53 110/73 06/18/24 20:53 110/73 06/18/24 20:51 76 18 100 06/18/24 20:45 85 21 99 06/18/24 20:33 68 18 100 06/18/24 20:21 75 15 99 06/18/24 20:03 77 13 109/70 99 06/18/24 20:01 109/70 06/18/24 19:57 79 24 99 06/18/24 19:54 76 24 97 06/18/24 19:34 86 17 99 06/18/24 18:34 74 20 100 06/18/24 18:29 79 19 127/77 99 06/18/24 18:14 36.5 C 83 18 118/67 100 Pulse Ox O2 Del Method O2 Del Method 06/19/24 13:06 Room Air 06/19/24 12:52 Room Air 06/19/24 12:38 Room Air 06/19/24 11:38 Room Air 06/19/24 11:22 Room Air 06/19/24 07:30 Room Air 06/19/24 02:45 Room Air 06/19/24 02:03 06/19/24 00:40 06/19/24 00:38 06/19/24 00:08 06/19/24 00:06 06/18/24 23:53 06/18/24 23:32 06/18/24 23:18 06/18/24 23:00 06/18/24 22:53 Room Air 06/18/24 22:53 Room Air 06/18/24 22:03 Room Air 06/18/24 22:03 99 Room Air 06/18/24 22:00 06/18/24 21:30 06/18/24 21:15 06/18/24 21:03 Room Air 06/18/24 21:00 06/18/24 20:58 06/18/24 20:54 Room Air 06/18/24 20:53 06/18/24 20:53 06/18/24 20:53 06/18/24 20:51 06/18/24 20:45 06/18/24 20:33 06/18/24 20:21 06/18/24 20:03 Room Air 06/18/24 20:01 06/18/24 19:57 06/18/24 19:54 06/18/24 19:34 Room Air 06/18/24 18:34 Room Air 06/18/24 18:29 Room Air 06/18/24 18:14 Room Air Transfer of Care Handoff Completed per policy Notes Mental Status: alert / awake / arousable and participated in evaluation Patient Amnestic to Procedure: Yes Nausea / Vomiting: adequately controlled Pain: adequately controlled Airway Patency, RR, SpO2: stable & adequate BP & HR: stable & adequate Hydration State: stable & adequate Anesthetic Complications: no major complications apparent
--- NOTE | 2024-06-19 14:28 | Electrocardiogram Report ---
Test Reason : Blood Pressure : */* mmHG Vent. Rate : 77 BPM Atrial Rate : 77 BPM P-R Int : 160 ms QRS Dur : 80 ms QT Int : 358 ms P-R-T Axes : 81 56 75 degrees QTcB Int : 405 ms Normal sinus rhythm Anteroseptal infarct (cited on or before 09-Nov-2023) Abnormal ECG When compared with ECG of 22-Mar-2024 07:51, Premature ventricular complexes are no longer Present ST no longer elevated in Anterolateral leads Confirmed by Dennis Marcos ([id number]) on 06/19/2024 2:27:41 PM Referred By: Jocelyne Meléndez Confirmed By: Dennis Marcos
[2024-06-19] MEDS: PHENYLEPHRINE 100MCG/ML 10ML SYR IV ONE (15:52)
[2024-06-19] MEDS: LIDOCAINE 2% 2 ML VIAL/AMP(20MG/ML) INFIL ONE (15:52)
[2024-06-19] MEDS: PROPOFOL IV EMULSION 10 MG/ML 20 ML VIAL IV ONE (15:52)
[2024-06-19] MEDS: LAVAGE SOLUTION 4000ML PO SCH (16:57)
[2024-06-20 07:01] LABS: Basophils # (auto) 0.04 K/uL (0.00-0.20); Basophils % (auto) 0.5 %; Eosinophils # (auto) 0.14 K/uL (0.00-0.50); Eosinophils % (auto) 1.9 %; Hematocrit (blood only) 27.9 % (42.0-52.0); Hemoglobin 8.8 g/dl (14.0-18.0); Immature Granulocytes # (auto) 0.02 K/uL (0.01-0.20); Immature Granulocytes % (auto) 0.3 %; Lymphocytes % (auto) 26.8 %; Mean Corpuscular Hemoglobin 25.5 pg (25.0-34.0); Mean Corpuscular Hgb Conc 31.5 g/dL (32.0-36.0); Mean Corpuscular Volume 80.9 fL (80.0-100.0); Mean Platelet Volume 9.4 fL (9.4-12.4); Monocytes # (auto) 0.81 K/uL (0.11-0.59); Monocytes % (auto) 10.9 %; Neutrophils # (auto) 4.44 K/uL (1.40-6.50); Neutrophils % (auto) 59.6 %; Platelet Count 319 K/uL (130-400); RDW Coefficient of Variation 14.6 % (11.5-14.5); Red Blood Count 3.45 M/uL (4.70-6.10); White Blood Count 7.45 K/ul (4.8-10.8)
[2024-06-20 07:19] LABS: BUN Creatinine Ratio 8.9 (10-20); Creatinine Clr Calc Pharmacy 79.4 ml/min; Est GFR (African American) 77.7 ml/min; Est GFR (Non-African American) 67.1 ml/min; Magnesium 2.3 mg/dl (1.7-2.4)
--- NOTE | 2024-06-20 09:15 | Gastroenterology Progress Note ---
Date of Service June 20, 2024 Assessment & Plan (1) Symptomatic anemia: Plan: 53 year old male with history of T2DM, CAD, GERD, pheochromocytoma (s/p resection 10/2023), tobacco use, HTN, HLD, and recent STEMI (03/22/2024) admitted with anemia s/p EGD without acute findings Maintain NPO status Colonoscopy today We appreciate assistance in the management of any serological abnormality and corrections to include: hemoglobin >7, INR <2, platelets >50,000, potassium levels >3.5 but <5.3, and sodium levels within 5 points of the reference range prior to endoscopic evaluation. Thank you for allowing us to participate in the care of this patient. Please call with any acute changes, questions or concerns. Please see addendum below with additional recommendation from my supervising physician. Admission and Anticipated Discharge Date Admission Date: June 18, 2024 Supervising Physician Co-Signing Physician Notes Patient took prep and stools are clear liquid. For colonoscopoy today. Subjective Pt was seen and evaluated, chart reviewed. Tolerated bowel prep. Passing liquid stools. No report of black or bloody stools. Review of Systems Review of Systems: All other findings negative except as noted in HPI. Physical Exam Constitutional: WD/WN, vitals as above Respiratory: normal respiratory effort, lungs clear to auscultation Cardiovascular: Rate/Rhythm: regular rate and regular rhythm Gastrointestinal (Abdomen): normal bowel sounds, soft, nontender, no hepatosplenomegaly Skin: no rashes, warm and dry Results & Data Results & Data Vital Signs (Past 12 Hours) Vital Signs Temp Pulse Pulse Resp BP Pulse Ox Pulse Ox 06/20/24 07:19 36.5 C 77 16 96/63 L 97 06/20/24 03:13 36.8 C 84 18 107/73 94 06/19/24 23:13 74 06/19/24 22:40 36.4 C L 63 18 100/68 100 06/19/24 22:03 96 O2 Del Method O2 Del Method 06/20/24 07:19 Room Air 06/20/24 03:13 Room Air 06/19/24 23:13 06/19/24 22:40 Room Air 06/19/24 22:03 Room Air PG Care Time/CCT Total # of Minutes Spent Total Time Spent with Patient: Total time spent is greater than 50% in coordination of care (as documented) at patient's floor/unit and/or counseling patient: Coding Level of Care Code None Diagnoses Symptomatic anemia D64.9
[2024-06-20] MEDS: SODIUM CHLORIDE 0.9% 500 ML IV SCH (11:56)
--- NOTE | 2024-06-20 12:50 | Cardiology Progress Note ---
Date of Service June 20, 2024 Assessment & Plan (1) CAD (coronary artery disease): Plan: Mr. Guerrier is a 53-year-old male with a history of Multi-vessel CAD s/p Acute Anterior MN 03/22/24 s/p LAD PCI, and an Ischemic Cardiomyopathy , Type 2 DM, HTN, Dyslipidemia, Tobacco Use, GERD and Pheochromocytoma. - Admitted for severe anemia -- suspecting GI Cause. EGD has been completed, did not reveal any sites for blood loss. - History of PCI with drug eluting stent in situ in LAD for STEMI on 03/22. - Post PCI : Stable apart from persistent chest heaviness; not typical with MN but may be anginal pain. Repeat PCI was planned for residual CAD and his symptoms of possible Angina. - Some of his symptoms could be explained by his severe anemia as well. Exercise intolerance in cardiac rehab, non typical chest pain can be because of anemia. - Serial Troponin i.e. 23-26 pg/ml since admission -- this is not an acute coronary syndrome. To remind, [place] [address] - Post Cath Hb: March 24 was 14.2 --------< March 22, 2024 was 15.9. -Post Cath Echo: 06/02 LVEF: 50%, previous noted wall motion abnormality not there. - Case discussed with me as well yesterday, we reviewed his PCI images; he definitely has some residual narrowing of non stented vessels including 95% proximal RCA, sequential 80% mid RCA, and an 80% proximal LCx stenoses. - Given hemodynamically unstable status because of anemia; PCI will be deferred, will reevaluate him after GI intervention. Recommend the followin. Given his severe anemia he will have a colonoscopy today; Cardiac Cath PCI will be deferred, will reevaluate him after GI intervention. 2. Continue holding Lisinopril. Restart once stable. 3. Hold Aspirin 81 mg daily and Brilinta 90 mg BID : Hold until next recommendation 4. Continue holding Coreg/ Imdur ER/ Rosuvastatin/ Lasix: Hold until GI evaluation. 5. Continue Pantoprazole IV. Admission and Anticipated Discharge Date Admission Date: June 18, 2024 Subjective Mr. Guerrier is being seen in room 217, he is lying comfortably in bed and offers no complaints other than he is hungry. He had his EGD yesterday and no site for blood loss was identified. He is waiting to go for his colonoscopy t taiwo. Patient denies any exertional chest pain or angina, but he has not been doing any activity at all other than lying in his bed. His breathing is at baseline. His hemoglobin is up to 8.8 g/dL today. Review of Systems Review of Systems: -- As per HPI. Physical Exam Physical Exam: Blood pressure is 96/63 pulse 76 and regular. GENERAL: Patient in no acute distress. HEENT: Head is atraumatic, normocephalic. EOM's intact. Facies symmetric. No perioral cyanosis. NECK: No JVD. JVP is not elevated. Carotid upstrokes are + 2 bilaterally without bruits. CHEST/LUNGS: Mildly diminished breath sounds, otherwise clear. CVS: S1 and S2 are regular without murmurs, gallops, or rubs. PMI is nondisplaced. No lifts, heaves, or thrills. No abdominal aortic or renal bruits. ABDOMINAL EXAM: Bowel sounds are present. EXTREMITIES: No clubbing or cyanosis. No edema. NEUROLOGIC EXAM: Patient is awake, alert, and oriented. Pleasant and cooperative. Answers questions appropriately. Speech is clear. SOFTWARE DEVELOPER INTERN: -- Normal sinus rhythm at normal rates. Results & Data Vital Signs (Past 12 Hours) Vital Signs Temp Pulse Pulse Pulse Resp BP BP 06/20/24 11:44 36.7 C 56 L 16 112/70 06/20/24 10:18 68 06/20/24 07:19 36.5 C 77 16 96/63 L 06/20/24 03:13 36.8 C 84 18 107/73 Pulse Ox O2 Del Method 06/20/24 11:44 99 Room Air 06/20/24 10:18 06/20/24 07:19 97 Room Air 06/20/24 03:13 94 Room Air Laboratory Results Laboratory Results - last 24 hr 06/20/24 06:12 WBC 7.45 RBC 3.45 L Hgb 8.8 L Hct 27.9 L MCV 80.9 MCH 25.5 MCHC 31.5 L RDW Std Deviation 43.0 RDW Coeff of Jocelin 14.6 H Plt Count 319 MPV 9.4 Immature Gran % (Auto) 0.3 Neut % (Auto) 59.6 Lymph % (Auto) 26.8 Gaston % (Auto) 10.9 Eos % (Auto) 1.9 Baso % (Auto) 0.5 Neut # (Auto) 4.44 Lymph # (Auto) 2.00 Gaston # (Auto) 0.81 H Eos # (Auto) 0.14 Baso # (Auto) 0.04 Immature Gran # (Auto) 0.02 Sodium 140 Potassium 4.0 Chloride 107 Carbon Dioxide 26 Anion Gap 7 BUN 11 Creatinine 1.23 Est Cr Clr Drug Dosing 79.4 Est GFR ( Amer) 77.7 Est GFR (Non-Af Amer) 67.1 BUN/Creatinine Ratio 8.9 L Glucose 105 H Calcium 9.0 Magnesium 2.3 Medications Administered Medication List Pantoprazole Sodium 40 mg/ (Dextrose) 100 mls @ 20 mls/hr IV Q5H ANDREI Stop: 07/18/24 18:59 Last Infusion: 06/20/24 11:44 Dose: 0 mg/hr, 0 mls/hr Documented By: Admin: 06/20/24 08:31 Dose: 8 mg/hr, 20 mls/hr Documented By: Infusion: 06/20/24 08:31 Dose: Infused Documented By: Admin: 06/20/24 03:45 Dose: 8 mg/hr, 20 mls/hr Documented By: Infusion: 06/20/24 03:45 Dose: Infused Documented By: Admin: 06/19/24 23:12 Dose: 8 mg/hr, 20 mls/hr Documented By: Infusion: 06/19/24 23:12 Dose: Infused Documented By: Admin: 06/19/24 18:14 Dose: 8 mg/hr, 20 mls/hr Documented By: Infusion: 06/19/24 18:14 Dose: Infused Documented By: Admin: 06/19/24 13:14 Dose: 8 mg/hr, 20 mls/hr Documented By: Infusion: 06/19/24 11:28 Dose: Infused Documented By: Admin: 06/19/24 05:59 Dose: 8 mg/hr, 20 mls/hr Documented By: Infusion: 06/19/24 05:59 Dose: Infused Documented By: Admin: 06/19/24 01:24 Dose: 8 mg/hr, 20 mls/hr Documented By: Infusion: 06/19/24 00:52 Dose: Infused Documented By: Admin: 06/18/24 19:52 Dose: 8 mg/hr, 20 mls/hr Documented By: BRAD Lactated Ringer's (Lr) 1,000 mls @ 50 mls/hr IV .Q20H ANDREI Stop: 07/19/24 09:14 Last Infusion: 06/20/24 11:44 Dose: 0 mls/hr Documented By: Admin: 06/20/24 06:53 Dose: 50 mls/hr Documented By: Infusion: 06/20/24 05:34 Dose: Infused Documented By: Admin: 06/19/24 09:34 Dose: 50 mls/hr Documented By: THELMA Sodium Chloride (Nss) 500 mls @ 15 mls/hr IV .Q24H ANDREI Stop: 06/21/24 07:29 Last Admin: 06/20/24 11:56 Dose: 15 mls/hr Documented By: MAYNOR Miscellaneous (Remove Nicoderm Patch) 1 each N/A DAILY@0859 [facility] Stop: 07/20/24 08:58 Last Admin: 06/20/24 08:31 Dose: 1 each Documented By: RITO Nicotine (Nicotine 7 Mg/24 Hr Tdsy) 1 patch TD QAM [facility] Stop: 07/19/24 10:29 Last Admin: 06/20/24 09:32 Dose: 1 patch Documented By: Admin: 06/19/24 13:13 Dose: 1 patch Documented By: THELMA Discontinued Medications Pantoprazole Sodium 80 mg/ (Dextrose) 120 mls @ 480 mls/hr IV NOW ONE Stop: 06/18/24 18:56 Last Infusion: 06/18/24 19:49 Dose: Infused Documented By: Admin: 06/18/24 19:29 Dose: 480 mls/hr Documented By: BRAD Sodium Chloride (Nss) 500 mls @ 15 mls/hr IV .Q24H ANDREI Stop: 06/20/24 07:29 Last Infusion: 06/20/24 07:07 Dose: Infused Documented By: Admin: 06/19/24 11:44 Dose: 15 mls/hr Documented By: BLANKA Lidocaine HCl (Lidocaine 2% 2 Ml Vial/Amp(20mg/Ml)) Confirm Administered Dose 4 ml INFIL .STK-MED ONE Stop: 06/19/24 12:17 Last Admin: 06/19/24 15:52 Dose: Not Given Documented By: THELMA Pantoprazole Sodium (Pantoprazole Bolus/Drip) 1 each IV NOW STA Stop: 06/18/24 18:43 Last Admin: 06/18/24 19:53 Dose: Not Given Documented By: BRAD Phenylephrine HCl (Phenylephrine 100mcg/Ml 10ml Syr) Confirm Administered Dose 100 mcg IV .STK-MED ONE Stop: 06/19/24 12:34 Last Admin: 06/19/24 15:52 Dose: Not Given Documented By: THELMA Polyethylene Glycol/Electrolytes (Lavage Solution 4000ml) 16 dose PO TODAY@1600 ANDREI Stop: 06/19/24 16:01 Last Admin: 06/19/24 16:57 Dose: 16 dose Documented By: THELMA Propofol (Propofol Iv Emulsion 10 Mg/Ml 20 Ml Vial) Confirm Administered Dose 200 mg IV .STK-MED ONE Stop: 06/19/24 12:17 Last Admin: 06/19/24 15:52 Dose: Not Given Documented By: THELMA PG Care Time/CCT Total # of Minutes Spent Total Time Spent with Patient: Total time spent is greater than 50% in coordination of care (as documented) at patient's floor/unit and/or counseling patient:35 C[place] [address] SUB INP/OBS CARE 3/50MIN Patient Type Established History Detailed Exam Detailed Medical Decision Making High Complexity Diagnoses Coronary artery disease of viejas artery of viejas heart with stable angina pectoris I25.118 Coronary Disease-Associated Artery/Lesion type: viejas artery [place] vs. transplanted heart: viejas heart Associated angina: with stable angina Time Spent (min) 54 (1) CAD (coronary artery disease) Coronary Disease-Associated Artery/Lesion type: viejas artery [place] vs. transplanted heart: viejas heart Associated angina: with stable angina Qualified Code(s): I25.118 - Atherosclerotic heart disease of viejas coronary artery with other forms of angina pectoris
--- NOTE | 2024-06-20 12:55 | GI REPORT ---
[facility] Patient: DANUTA FISHER : 1970 Sex at : Male Age: 53 Years Procedure: Colonoscopy Date: 06/20/2024 Attending Physician: Logan Berry MD Referring MD: Jocelyne Meléndez MD Indications: - Unexplained iron deficiency anemia Medications: - Monitored Anesthesia Care - See the Anesthesia note for documentation of the administered medications Complications: - No immediate complications. Estimated Blood Loss: - Estimated blood loss: None. Procedure: - ASA Grade Assessment: III - A patient with severe systemic disease. - The pediatric colonoscope was introduced through the anus and advanced to the terminal ileum, with identification of the appendiceal orifice and ileocecal valve. - The colonoscopy was performed without difficulty. - The quality of the bowel preparation was adequate. Findings: - External non-bleeding hemorrhoids were found. The hemorrhoids were small. - The exam was otherwise without abnormality on direct and retroflexion views. Impression: - External non-bleeding hemorrhoids. - The examination was otherwise normal on direct and retroflexion views. - No specimens collected. Recommendation: - Arrange SB Video Capsule Endoscopy Procedure Code(s): - 01704, Colonoscopy, flexible; diagnostic, including collection of specimen(s) by brushing or washing, when performed (separate procedure) Diagnosis Code(s): - D50.9, Iron deficiency anemia, unspecified - K64.4, Residual hemorrhoidal skin tags CPT(R) - 2022 copyright [employer]. All Rights Reserved. The CPT codes, CCI edits and ICD codes generated are intended as suggestions and were generated based on input data. These codes are preliminary and upon rehabilitation center manager review may be revised to meet current compliance and payer requirements. The provider is responsible for the final determination of appropriate codes, and modifiers. Logan Berry MD This document has been electronically signed. Note Initiated:06/20/2024 Note Completed:06/20/2024 12:54 PM \\[id number]
--- NOTE | 2024-06-20 12:56 | Communication Note ---
Date of Service: June 20, 2024 POST PROCEDURE NOTE: See Provation note for complete report. Summary: Small external hemorrhoids. Rec: OP SB Video Capsule Endoscopy and if nothing found consider hematology referral. Otherwise support with transfusion and iron supplements as needed. IP GI Service will sign off.
--- NOTE | 2024-06-20 13:39 | Anesthesiology Progress Note ---
Date of Service June 20, 2024 Anesthesia Post Procedure Vital Signs Vital Signs: Temp Pulse Pulse Pulse Resp BP BP 06/20/24 13:21 59 L 16 111/72 06/20/24 13:07 60 16 108/68 06/20/24 12:52 72 16 92/56 L 06/20/24 11:44 36.7 C 56 L 16 112/70 06/20/24 10:18 68 06/20/24 07:19 36.5 C 77 16 96/63 L 06/20/24 03:13 36.8 C 84 18 107/73 06/19/24 23:13 74 06/19/24 22:40 36.4 C L 63 18 100/68 06/19/24 22:03 06/19/24 21:12 06/19/24 19:39 36.7 C 68 18 127/80 06/19/24 14:48 36.9 C 79 16 119/75 06/19/24 13:42 65 Pulse Ox Pulse Ox O2 Del Method O2 Del Method 06/20/24 13:21 99 Room Air 06/20/24 13:07 100 Room Air 06/20/24 12:52 100 Room Air 06/20/24 11:44 99 Room Air 06/20/24 10:18 06/20/24 07:19 97 Room Air 06/20/24 03:13 94 Room Air 06/19/24 23:13 06/19/24 22:40 100 Room Air 06/19/24 22:03 96 Room Air 06/19/24 21:12 Room Air 06/19/24 19:39 96 Room Air 06/19/24 14:48 98 Room Air 06/19/24 13:42 Transfer of Care Handoff Completed per policy Notes Mental Status: alert / awake / arousable and participated in evaluation Patient Amnestic to Procedure: Yes Nausea / Vomiting: adequately controlled Pain: adequately controlled Airway Patency, RR, SpO2: stable & adequate BP & HR: stable & adequate Hydration State: stable & adequate Anesthetic Complications: no major complications apparent
[2024-06-20 14:08] VITALS: RESP 18; TEMP 97.5
[2024-06-20] MEDS: PROPOFOL IV EMULSION 10 MG/ML 20 ML VIAL IV ONE (14:27)
[2024-06-20] MEDS: LIDOCAINE 2% 2 ML VIAL/AMP(20MG/ML) INFIL ONE (14:27)
[2024-06-20 16:03] VITALS: BP 117/70; O2SAT 100
--- NOTE | 2024-06-20 17:17 | Discharge Summary ---
Discharge Summary Date of Service June 20, 2024 Principal Dx & Hospital Course #1 = Principal Diagnosis (1) Upper GI bleed: With acute blood loss anemia With black tarry stool x 3 weeks. Hgb 6.6 on arrival (dropped from 14.2 on 03/24/2024), now up to 8.8 s/p 2 units PRBCs, hemoglobin stable on the day of discharge, no active bleeding seen during bowel prep for colonoscopy BPs improved Received IV Protonix drip and had EGD which only showed mild erythema in the duodenum. Prepped for colonoscopy and had no bleeding during this. Colonoscopy only with hemorrhoids and nothing else Needs video capsule endoscopy arranged as an outpatient-I have asked GI to arrange this Need to restart Brilinta and aspirin due to recent cardiac stents Check CBC in 3 days on Sunday and follow-up closely with PCP Recommend CBC once weekly Start iron supplement on discharge (2) Type 2 diabetes mellitus: Last A1c at 6.6% on 02/29/2024 and now 5.5% He has a Dexcom on and requests no further finger sticks due to it causing severe pain-glucose venous 95 and he is not on insulin-ok to dc BSGs Hold metformin while here but restarted on discharge ADA diet (3) Presence of drug coated stent in LAD coronary artery: With CAD, recent STEMI 03/2024, on ASA/Brilinta. Had residual disease and was to have repeat cath 06/20 for staged intervention which is now cancelled Trop minimally elevated in low 20s, no current chest pain-having angina x 3 weeks due to severe anemia and now transfused reschedule cath once GIB resolved Consult Cardiology appreciated Restart aspirin and Brilinta, statin, carvedilol, lisinopril (4) Tobacco abuse: Patient is a current everyday tobacco cigarette smoker Continue to encourage smoking cessation Was prescribed Chantix last admission but not sure if he is taking it (5) Hypertension: Previously uncontrolled due to pheochromocytoma which was surgically resected 10/2023, then off almost all meds except low doses of Coreg and lisinopril for CAD/ischemic CM holding meds for hypotension from GIB Okay to resume carvedilol and lisinopril on discharge (6) Anemia: Acute /subacute blood loss. Ferritin severely low at 3 and trans sat low at 4% Received 2 units PRBCs, start oral iron on discharge Follow CBC on Sunday (7) Hyperlipidemia: Continue statin (8) GERD (gastroesophageal reflux disease): Continue Protonix and famotidine Plan DVT prophylaxis-no chemical prophylaxis due to GI bleeding, had SCDs Disposition-stable for discharge home Discussed care with family at the bedside on the day of discharge Notes For Next Care Provider Follow-up CBC on Sunday Needs video capsule endoscopy-to be arranged by GI Medication Changes From Visit None Admission HPI Per Admitting Provider Peter is a 53yo male with PMH of T2DM, CAD, GERD, pheochromocytoma (s/p resection 10/2023), tobacco use, HTN, HLD, and recent STEMI (03/22/2024). He presented on 06/18 at the behest of his guest services associate for orthostatic hypotension and a reported hemoglobin of 6.9. Patient was being seen by his guest services associate as he had an upcoming appointment for additional stents to be placed on Wednesday 06/20. He is currently taking aspirin and Brilinta, and has been on these medications since his STEMI in March. Patient is minimally symptomatic at this time, but does endorse dizziness/lightheadedness with movements that began shortly after his STEMI, as well as ongoing fatigue and CASTANO. He endorses dark tarry stool x 3 weeks. No prior history of GI bleeds. He reports he has not taken any iron supplements, Pepto-Bismol, or recent NSAID such as ibuprofen. He does have a history of hemorrhoids. Past surgeries include removal of a ph eochromocytoma; he denies prior gastric surgeries. No history of diverticulitis, Crohn's disease, or ulcerative colitis to his knowledge. He does have diabetes, and reports good compliance with taking his regular medications; only recent change in medication was that his lisinopril was increased from 5 mg to 2.5 mg for low blood pressure. Took regular medications this morning. Patient reports he may have been on Brilinta previously in the past after having pheochromocytoma removed, but was discontinued on it after 3 weeks. Other than that, he does not normally take antiplatelets. He denies any recent falls or injuries to the abdomen or pelvis. No prior history of gastric ulcers. He reports he had an EGD/colonoscopy done around a year ago. He is a current everyday tobacco cigarette smoker, but has been cutting down from 1.5 PPD to 6 cigarettes daily. He denies any recent alcohol use. No prior blood transfusions. Patient's vitals are stable, admission. ED course: IV Protonix drip 2u pRBCs ordered ROS: Patient endorses ongoing cough, fatigue, lightheadedness with bending over/movements, chest pain and SOB with exertion, and melena x 3 weeks. Patient denies fever, chills, night-sweats, chest pain at present, SOB at rest, pleuritic CP, hemoptysis, abdominal pain, N/V/D, or BRB in stool. Please see Dr. Dennison's attestation for any changes to treatment plan overnight. Discharge Exam Constitutional WD/WN, vitals as above Respiratory normal respiratory effort, lungs clear to auscultation Cardiovascular RRR, no murmur, no edema Gastrointestinal (Abdomen) normal bowel sounds, soft, nontender, no hepatosplenomegaly Psychiatric A+Ox3, euthymic affect Discharge Plan Discharge Items Patient Disposition: Home - Self-Care Reason For Visit: GI BLEED Discharge Diagnosis: Acute blood loss anemia GI bleed Condition on Discharge: Fair Activity: As commented below Lifting: Gradually increase as tolerated Bathing: No limitations Exercise/Sports: As tolerated Exercise Comment: Would hold off on cardiac rehab next week Non-emergency contact: Primary Care Provider, Blast Furnace Keeper Helper and Real Estate Firm Manager Call non-emergency contact if: you have any medication questions and your symptoms worsen Follow-up/Referrals: Jocelyne Meléndez MD [Primary Care Provider] - (Follow-up within 1 to 2 weeks after discharge) Logan Berry MD [Physician] - (Follow-up after discharge to have a small bowel video capsule endoscopy ordered) Diet: Heart Healthy Ambulatory Orders: Complete Blood Count with Diff (Routine) Timeframe: 3 Days Location: Determined by Patient Ordered By: Shweta Freeman Attending Provider Instructions: You were admitted with severe anemia from GI bleeding. You had an EGD (upper endoscopy) and a colonoscopy. Neither test found a significant source of bleeding. It is most likely that you had bleeding coming from somewhere in the small intestine where the camera could not reach during the testing. You will be referred to have a video capsule endoscopy as an outpatient they can take pictures of the inside of your intestine to look for any other source of bleeding. You will need to resume your blood thinners to prevent you from having a heart attack. Keep an eye out for any black tarry stools or red blood in the stool as well as maroon blood. If you have this, please return to the hospital. If you feel lightheaded or have chest pains again, also return to the hospital. Please have blood work checked on Sunday which was ordered for you to check your blood counts. The results of this should get sent to your primary care physician for review. You can take an iron supplement [id number] to help your blood count build back up faster. This can cause your stool to turn dark in color and can cause constipation. Pending Studies at Discharge: No Stand-Alone Forms: My [facility] [employer], Smoking Cessation Medications and DC Order Prescriptions: New ferrous sulfate 325 mg (65 mg iron) tablet 325 mg PO DAILY Qty: 30 0RF Rx Instructions: [id number] Continued carvedilol 3.125 mg tablet 3.125 mg PO BID Qty: 180 3RF Rx Instructions: must administer with a meal/food rosuvastatin 40 mg tablet 40 mg PO DAILY Qty: 90 3RF (DME) Dexcom G7 Sensor Device See Rx Instructions .Route Qty: 3 3RF Rx Instructions: As directed sildenafil 50 mg tablet See Rx Instructions PO DAILY PRN (Reason: sexual activity) Qty: 10 2RF Rx Instructions: 1-2 orally daily PRN; administer 30 minutes to 4 hours before activity (DME) Dexcom G7 Tar Man Misc See Rx Instructions .Route Qty: 1 0RF Rx Instructions: As directed varenicline [Chantix Continuing Month Box] 1 mg tablet 1 mg PO BID Qty: 60 1RF Brilinta 90 mg tablet 90 mg PO BID Qty: 60 3RF aspirin 81 mg Tablet,Delayed Release (Dr/Ec) 81 mg PO QAM Qty: 30 0RF metformin 500 mg tablet extended release 24 hr 500 mg PO DAILY pantoprazole 40 mg tablet,delayed release (DR/EC) 40 mg PO DAILY famotidine 40 mg tablet 40 mg PO QPM Changed lisinopril 5 mg tablet 2.5 mg PO DAILY Qty: 15 0RF Discharge Orders: Discharge Order (Routine); Ordered 06/20/24 Ordered By: Shweta Oneil Admission Data Admit Date/Time: 06/18/24 20:40 Attending Provider: Shweta Oneil Admit Provider: Shaheed Dennison Primary Care Provider: Jocelyne Meléndez. Other Providers: Shaheed Dennison; Logan Berry; Dennis Marcos Other Interventions: Discharge Summary Assessment (RN) Last Done: 06/20/24 13:11 Hospital Stay Data Consultations 06/18/24 20:09 ED Decision to Admit Stat 06/18/24 20:57 Consult Gastroenterology Routine 06/19/24 09:06 Consult Cardiology Routine Procedures Performed Operation Date: 06/20/24 16:30 Actual Procedures p Colonoscopy - Logan Berry MD Pending Results Patient Have Any Pending Studies at Discharge: No Discharge Instructions Given to Patient (Per Discharging Provider) You were admitted with severe anemia from GI bleeding. You had an EGD (upper endoscopy) and a colonoscopy. Neither test found a significant source of bleeding. It is most likely that you had bleeding coming from somewhere in the small intestine where the camera could not reach during the testing. You will be referred to have a video capsule endoscopy as an outpatient they can take pictures of the inside of your intestine to look for any other source of bleeding. You will need to resume your blood thinners to prevent you from having a heart attack. Keep an eye out for any black tarry stools or red blood in the stool as well as maroon blood. If you have this, please return to the hospital. If you feel lightheaded or have chest pains again, also return to the hospital. Please have blood work checked on Sunday which was ordered for you to check your blood counts. The results of this should get sent to your primary care physician for review. You can take an iron supplement [id number] to help your blood count build back up faster. This can cause your stool to turn dark in color and can cause constipation. Total Time Total Time Spent Total Time Spent (In Minutes): 35 minutes Total Time Includes: Examination of the Patient, Discharge Planning and Medication Reconciliation Coding Level of Care Code 78178 INP/OBS DISCH >30 MIN Diagnoses Upper GI bleed K92.2 Type 2 diabetes mellitus E11.9 Presence of drug coated stent in LAD coronary artery Z95.5 Tobacco abuse Z72.0 Primary hypertension I10 Hypertension type: primary hypertension Anemia D64.9 Hyperlipidemia, unspecified hyperlipidemia type E78.5 Hyperlipidemia type: unspecified GERD (gastroesophageal reflux disease) K21.9
[2024-06-20 17:21] VITALS: PULSE 77
== END 2024-06-20 17:48 | disposition home or self-care (01) | DRG 378 ==
LOC: ED 18:09 → SUATTDRO 20:40 → 2S 20:40

== ENCOUNTER 2024-07-28 17:54 | Observation (INO) ==
[2024-07-28 18:21] LABS: Hematocrit (blood only) 25.4 % (42.0-52.0); Hemoglobin 7.8 g/dl (14.0-18.0); Mean Corpuscular Hemoglobin 25.7 pg (25.0-34.0); Mean Corpuscular Hgb Conc 30.7 g/dL (32.0-36.0); Mean Corpuscular Volume 83.6 fL (80.0-100.0); Mean Platelet Volume 9.5 fL (9.4-12.4); Platelet Count 400 K/uL (130-400); RDW Coefficient of Variation 16.9 % (11.5-14.5); RDW Standard Deviation 50.8 fL (36.4-46.3); Red Blood Count 3.04 M/uL (4.70-6.10); White Blood Count 7.67 K/ul (4.8-10.8)
[2024-07-28 18:36] LABS: Albumin Globulin Ratio 1.9 (0.9-2); Albumin Level 4.5 gm/dl (3.4-5.0); BUN Creatinine Ratio 17.7 (10-20); Bilirubin,Total 0.2 mg/dl (0.2-1.0); Calcium 9.3 mg/dl (8.6-10.3); Creatinine Clr Calc Pharmacy 75.6 ml/min; Globulin 2.4 gm/dl (2.5-4.0); Potassium 4.4 mmol/L (3.5-5.1); Total Protein 6.9 gm/dl (6.0-8.3)
--- NOTE | 2024-07-28 19:14 | Emergency Department Note ---
Impression & Plan Anemia, Elevated troponin ED Provider Note ED Provider Note NAME: DANUTA FISHER AGE:54 SEX: Male : 1970 ARRIVES VIA: Private vehicle INFORMANT: Patient ED PROVIDER(s): Solange Tolbert DO CHIEF COMPLAINT: Referred by PCP HPI: This is a 54-year-old male presents emerged department after he was contacted by his PCP following outpatient routine labs and instructed to come to the ER due to worsening anemia. Patient states he had anemia ever since having his cardiac catheterization and subsequent stent placement. He states he has previously received a blood transfusion. He states he underwent EGD and colonoscopy and no source of the bleeding was noted. He states he has been taking blood thinning medications since his heart procedures. He shows a medication list that lists low-dose aspirin as well as Brilinta daily. He states he does develop chest heaviness with exertion that requires him to sit down. He denies any accompanying dizziness/lightheadedness, weakness, fatigue, or shortness of breath with exertion. He states his stools have been black and he is occasionally constipated but also notes he is taking iron supplements. He has not noticed any obvious hematochezia. He denies any epistaxis or hemoptysis. No prior history of anemia before his cardiac intervention. PAST MEDICAL HISTORY:See Below PAST SURGICAL HISTORY:See Below FAMILY HISTORY:See Below SOCIAL HISTORY:See Below HOME MEDICATIONS:See Below ALLERGIES:See Below VITALS:See Below PHYSICAL EXAMINATION: GENERAL: alert, well appearing, well nourished, no distress, non-toxic EYE EXAM: normal conjunctiva, PERRL and EOM's grossly intact OROPHARYNX: no exudate, no erythema, lips, buccal mucosa, and tongue normal and mucous membranes are moist, poor dentition NECK: supple, no nuchal rigidity, no adenopathy, non-tender LUNGS: Clear to auscultation. Normal chest wall mechanics, no w/r/r HEART: no murmurs, S1 normal and S2 normal ABDOMEN: abdomen soft, non-tender, normo-active bowel sounds, no masses, no rebound or guarding. SKIN: no rashes, petechiae, orbruising UPPER EXTREMITIES: upper extremities are grossly normal. FROM, nml pulses b/l. LOWER EXTREMITIES: No pitting edema. FROM, nml pulses b/l. NEURO EXAM: Normal sensorium, cranial nerves II-XII grossly intact, normal speech, no facial droop,nogross weakness of arms, no gross weakness of legs. Gross sensation intact. No ataxia. Vital Signs: reviewed and remarkable Differential Diagnosis: acute coronary syndrome, pericarditis, pulmonary embolus, aortic dissection, pneumonia, pneumothorax, musculoskeletal pain, shingles, GERD, GI bleed, as well as others were considered MEDICAL DECISION MAKING: This is a 54 yo male with a recent hx of anemia of unclear etiology and ongoing anginal symptoms with known CAD s/p stent on ASA and Brilinta who presents after being referred by his PCP here for transfusion due to worsening outpatient labs. Patient describes worsening chest discomfort with exertion requiring him to sit down. He has had prior transfusions. He was afebrile, VS stable, and asymptomatic at rest. He denied noting any blood loss from any source and has already undergone EGD/colo. No significant findings per those reports. Labs here with hgb 7.8. Patient additionally does not mild orthostatic symptoms. Labs drawn and sent, IV established, EKG and CXR performed and interpreted at bedside, and patient placed on telemetry. Troponin elevated likely from demand due to worsening anemia. I discussed the case with hospitalist team for additional evaluation and mgmt and we agree patient would benefit from blood transfusion at this time given worsening anemia of unclear etiology while still on anticoagulation/antiplatelet medication for known CAD and evidence of organ dysfunction in elevated troponin. Blood consent signed at bedside. One unit ordered, will defer any additional requirements to the hospitalist team. Consultation(s): 2058: Discussed with Dr. Dennison, [place] hospitalist, for additional evaluation and mgmt. ER Treatment Provided: See below 2147: Blood consent signed at bedside. Diagnostics Interpreted By Me: -ECG: Normal sinus at 96, normal axis, normal intervals, T wave inversions noted in V5/V6 -Cardiac Monitoring: An order was placed for continuous cardiac monitoring. The monitor shows a rate of 78 with normal sinus rhythm. -Laboratory studies: As stated above and show below. -Imaging studies: X-ray Chest: A single view study of the chest was reviewed and was negative for cardiomegaly, focal infiltrate, effusion, pulmonary edema, or wide mediastinum. Triage Nursing Note Reviewed Prior/Outside Records Reviewed - prior egd/colo from June Critical Care: Critical care of 41 min performed to assess and manage high likelihood of life-threatening anemia and angina, involving labs and imaging performed with assessment to evaluate symptomatic anemia diagnosis with frequent reassessment. This time includes bedside time, treatment discussions with patient/family/consultants, documentation time and excludes procedure time. Past Med/Surg History Problem List (Updated 07/29/24 @ 03:38 by Shaheed Dennison MD) Symptomatic anemia Upper gastrointestinal hemorrhage without varices or source of bleeding evident on endoscopy Anemia requiring transfusions Elevated troponin (Acute) Anemia (Acute) Anemia History of ST elevation myocardial infarction (STEMI) Stable angina pectoris Orthostatic hypotension Presence of drug coated stent in LAD coronary artery Ischemic cardiomyopathy Tobacco abuse CAD (coronary artery disease) Type 2 diabetes mellitus (Chronic) Chronic sinusitis (Chronic) GERD (gastroesophageal reflux disease) (Chronic) Sensorineural hearing loss (SNHL) of both ears (Chronic) Hyperlipidemia (Chronic) Hypertension (Chronic) Medical History STEMI (ST elevation myocardial infarction) Pheochromocytoma Surgical History History of cardiac cath History of heart artery stent History of dental surgery Family History Father Cerebral hemorrhage Hypertension Grandmother (Maternal) Diabetes Myocardial infarction Grandfather (Paternal) Myocardial infarction Denies family history of Ovarian cancer Prostate cancer Breast cancer Colorectal cancer Social History Smoking Status: Current every day smoker Tobacco Type: Cigarettes Age Started Using Tobacco: 19; packs per day: 1; Cigarettes Per Day: 6; Second Hand Exposure: No; Do You Dip or Chew Tobacco: No; Hx Alcohol Use: No Hx Substance Use: No Preferred Language: Irish Communication Ability: Effective Security Solutions Engineer Required: No Beliefs That Will Affect Care: None marital status: Current Living Situation: Alone Current Living Situation Comment: lives at home by self current occupational status: employed 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 [employer] Safe at Home: Yes Diet: diabetic, low salt and regular caffeine: Yes Dental Care, Regularly: Yes Physical Activity Frequency: 1-2 Times per Week Seatbelt Use: always Sunscreen Use: No Assistive Devices: None Allergies Allergies Allergy/AdvReac Type Severity Reaction Status Date / Time No Known Allergies Allergy Verified 07/28/24 20:45 Home Meds Home Medications Medication Instructions Recorded Confirmed pantoprazole 40 mg tablet,delayed 40 mg PO DAILY 06/18/24 07/28/24 release Previous Rx's Medication Instructions Recorded sildenafil 50 mg tablet See Rx Instructions PO DAILY PRN 02/29/24 sexual activity #10 tabs aspirin 81 mg tablet,delayed 81 mg PO QAM #30 tabs 03/24/24 release blood-glucose meter,continuous #1 ea 03/28/24 (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) ticagrelor 90 mg tablet (Brilinta) 90 mg PO BID #60 tabs 04/08/24 carvedilol 3.125 mg tablet 3.125 mg PO BID #180 tabs 04/15/24 rosuvastatin 40 mg tablet 40 mg PO DAILY #90 tabs 04/15/24 blood-glucose sensor (Dexcom G7 #3 ea 06/18/24 Sensor device) ferrous sulfate 325 mg (65 mg 325 mg PO DAILY #30 tabs 06/20/24 iron) tablet lisinopril 5 mg tablet 2.5 mg (1/2 x 5 mg) PO DAILY #15 06/20/24 tabs famotidine 40 mg tablet 40 mg PO QPM #90 tabs 06/23/24 varenicline 1 mg tablet (Chantix 1 mg PO BID #120 tabs 07/11/24 Continuing Month Box) metformin 500 mg tablet,extended 500 mg PO DAILY #90 tabs 07/18/24 release 24 hr Results & Data (ED) Vital Signs Vital Signs - 24 hr 07/28/24 17:55 07/28/24 18:49 07/28/24 19:05 Temperature 36.3 C L Temperature Source Temporal Artery Scan Pulse Rate 113 H 90 Pulse Rate [Apical] Respiratory Rate 18 Respiratory Effort / Characteristics Respiratory Depth Respiratory Pattern Blood Pressure 131/72 Blood Pressure [Left Arm] Blood Pressure Mean 91 Blood Pressure Mean [Left Arm] Pulse Oximetry 98 Oxygen Delivery Method Room Air Room Air Sepsis Recent Fever Within 48 Hours No Sepsis New/Unexplained Change in Mental Status N/A Sepsis Action Taken by Nursing No Action Required Oxygen Flow Rate - Titration 99 07/28/24 19:05 07/28/24 19:05 07/28/24 19:33 Temperature Temperature Source Pulse Rate 89 87 Pulse Rate [Apical] 89 Respiratory Rate 18 18 15 Respiratory Effort / Characteristics Non-Labored Respiratory Depth Normal Respiratory Pattern Regular Blood Pressure Blood Pressure [Left Arm] 144/75 H Blood Pressure Mean Blood Pressure Mean [Left Arm] 98 Pulse Oximetry 98 98 98 Oxygen Delivery Method Room Air Room Air Room Air Sepsis Recent Fever Within 48 Hours Sepsis New/Unexplained Change in Mental Status Sepsis Action Taken by Nursing Oxygen Flow Rate - Titration 07/28/24 20:03 07/28/24 20:30 07/28/24 21:00 Temperature Temperature Source Pulse Rate 91 H 85 87 Pulse Rate [Apical] Respiratory Rate 20 14 20 Respiratory Effort / Characteristics Respiratory Depth Respiratory Pattern Blood Pressure 116/70 105/65 120/67 Blood Pressure [Left Arm] Blood Pressure Mean 85 78 79 Blood Pressure Mean [Left Arm] Pulse Oximetry 99 96 99 Oxygen Delivery Method Room Air Room Air Room Air Sepsis Recent Fever Within 48 Hours Sepsis New/Unexplained Change in Mental Status Sepsis Action Taken by Nursing Oxygen Flow Rate - Titration Laboratory Data 07/29/24 09:56 07/29/24 09:56 Lab Results 07/28/24 07/28/24 Range/Units 18:00 18:51 WBC 7.67 (4.8-10.8) K/ul RBC 3.04 L (4.70-6.10) M/uL Hgb 7.8 L (14.0-18.0) g/dl Hct 25.4 L (42.0-52.0) % MCV 83.6 (80.0-100.0) fL MCH 25.7 (25.0-34.0) pg MCHC 30.7 L (32.0-36.0) g/dL RDW Std Deviation 50.8 H (36.4-46.3) fL RDW Coeff of Jocelin 16.9 H (11.5-14.5) % Plt Count 400 (130-400) K/uL MPV 9.5 (9.4-12.4) fL PT 10.3 (9.0-12.0) Seconds INR 0.9 (0.9-1.1) APTT 26 (21-31) Seconds PTT Ratio 1.0 Sodium 138 (136-145) mmol/L Potassium 4.4 (3.5-5.1) mmol/L Chloride 107 (98-107) mmol/L Carbon Dioxide 25 (21-32) mmol/L Anion Gap 6 (3-11) BUN 22 (6-23) mg/dl Creatinine 1.24 (0.6-1.4) mg/dl Est Cr Clr Drug Dosing 75.6 ml/min eGFR 69.52 BUN/Creatinine Ratio 17.7 (10-20) Glucose 179 H (70-99(Fasting)) mg/dl Calcium 9.3 (8.6-10.3) mg/dl Total Bilirubin 0.2 (0.2-1.0) mg/dl AST 18 (13-39) U/L ALT 17 (7-52) U/L Alkaline Phosphatase 82 (34-104) U/L Troponin I High Sens 48.0 H (0-20) pg/ml Total Protein 6.9 (6.0-8.3) gm/dl Albumin 4.5 (3.4-5.0) gm/dl Globulin 2.4 L (2.5-4.0) gm/dl Albumin/Globulin Ratio 1.9 (0.9-2) Blood Type O Negative Antibody Screen NEGATIVE Crossmatch See Detail Administered Medications Discontinued Medications Aspirin (Aspirin 81 Mg Ectab) 81 mg PO QAM ANDREI Stop: 08/28/24 08:59 Last Admin: 07/29/24 08:39 Dose: 81 mg Documented By: SAGAR Carvedilol (Carvedilol 3.125 Mg Tab) 3.125 mg PO BID ANDREI Stop: 08/28/24 08:59 Last Admin: 07/29/24 08:39 Dose: 3.125 mg Documented By: SAGAR Ferrous Sulfate (Ferrous Sulfate 325 Mg Tab) 325 mg PO DAILY ANDREI Stop: 08/28/24 08:59 Last Admin: 07/29/24 08:39 Dose: 325 mg Documented By: SAGAR Iron Sucrose 300 mg/ Sodium (Chloride) 265 mls @ 176.667 mls/hr IV TODAY ONE; Protocol Stop: 07/29/24 11:44 Last Infusion: 07/29/24 12:53 Dose: Infused Documented By: Admin: 07/29/24 10:49 Dose: 176.7 mls/hr Documented By: KAYCE Insulin Aspart (Insulin Aspart Per Unit Charge) 0 units SC ACHS ANDREI Stop: 08/28/24 07:29 Last Admin: 07/29/24 12:18 Dose: Not Given Documented By: Admin: 07/29/24 09:47 Dose: Not Given Documented By: SAGAR Miscellaneous (Varenicline [Chantix]: Order Awaiting Action) 1 each N/A QS ANDREI Stop: 08/28/24 07:59 Last Admin: 07/29/24 10:54 Dose: Not Given Documented By: KAYCE Pantoprazole Sodium (Pantoprazole 40 Mg Tab) 40 mg PO DAILY ANDREI Stop: 08/28/24 08:59 Last Admin: 07/29/24 08:39 Dose: 40 mg Documented By: SAGAR Rosuvastatin Calcium (Rosuvastatin Calcium 20 Mg Tab) 40 mg PO DAILY ANDREI Stop: 08/28/24 08:59 Last Admin: 07/29/24 08:40 Dose: 40 mg Documented By: SAGAR Ticagrelor (Ticagrelor 90 Mg Tab) 90 mg PO BID ANDREI Stop: 08/27/24 22:42 Last Admin: 07/29/24 10:48 Dose: 90 mg Documented By: Admin: 07/28/24 23:57 Dose: 90 mg Documented By: LOLA Imaging Data Radiologist's Impression: Chest X-Ray 07/28/24 20:13 XR chest 1V portable CLINICAL HISTORY: Chest pain. COMPARISON STUDY: Chest CT November 09, 2023. Chest radiograph June 18, 2024 FINDINGS: Lung volumes are normal. Lungs are clear. There is no pneumothorax or pleural effusion. Cardiac size is stable. Mediastinal contours are normal. There is no evidence for pulmonary edema. IMPRESSION: No acute cardiopulmonary findings. No change in appearance of the chest. ACT 112: Negative or not required by law. Electronically signed by: Yandel Meléndez M.D. 07/29/2024 6:49 AM Discharge Plan Visit Data Chief Complaint: Chest Pain Stated Complaint: chest pain, heartburn, low bp ED Provider: Solange Tolbert Discharge Problem: Anemia, Elevated troponin Patient Disposition: Admitted As Inpatient Condition: Fair Discharge Instructions Interventions: ED Discharge Assessment Last Done: 07/28/24 22:43
[2024-07-28 19:16] LABS: INR 0.9 (0.9-1.1); Partial Thromboplastin Time 26 Seconds (21-31); Prothrombin Time 10.3 Seconds (9.0-12.0)
[2024-07-28] MEDS ORDERED: SODIUM CHLORIDE 0.9% 100 ML IV PRN (21:20)
--- NOTE | 2024-07-28 21:57 | History & Physical Report ---
Date of Service July 28, 2024 Assessment & Plan (1) Symptomatic anemia: (2) Elevated troponin: (3) History of ST elevation myocardial infarction (STEMI): (4) Presence of drug coated stent in LAD coronary artery: (5) Ischemic cardiomyopathy: (6) CAD (coronary artery disease): (7) Type 2 diabetes mellitus: (8) Hypertension: (9) Hyperlipidemia: (10) Anemia requiring transfusions: (11) Upper gastrointestinal hemorrhage without varices or source of bleeding evident on endoscopy: Plan Symptomatic anemia requiring transfusion/history of upper GI bleeding- erythematous duodenopathy on EGD on 06-19-24--- Hemoglobin on 03/24 was 14.2 Hemoglobin on 06/18 was 6.6 Hemoglobin on 06/19 was 8.5 after 2 units PRBCs Will transfuse 1 unit PRBCs from the ED, due to hemoglobin of 7.5, increasing troponin, and chest pain. Repeat laboratories in the a.m. Continue famotidine 40 mg p.o. every afternoon and pantoprazole 40 mg p.o. every morning Colonoscopy on 06/20/2024 was normal Patient reportedly is waiting for insurance authorization for video capsule endoscopy History of STEMI/SANCHEZ in LAD/hypertension/ischemic cardiomyopathy- Patient has had to continue on aspirin and Brilinta, which has promoted continued blood loss Troponin on 03/24/2024 was 25,349.0 Troponin on 03/22/2024 was 55,674.3 Troponin on 06/19/2024 was 23.0 Cardiac catheterization on 03/22/2024 with culprit angioplasty and stenting of the LAD Troponin today is 48.0, with follow-up 52.1 Continue carvedilol 3.125 mg p.o. twice daily, aspirin 81 mg every morning, Brilinta 90 mg p.o. twice daily Hold lisinopril 2.5 mg every morning Transfusing 1 unit PRBCs as noted above, with EKG showing lateral ST depression and T wave inversions Diabetes mellitus- Hold metformin Glucose 179 on admission Patient Accu-Cheks with NovoLog SSI Tobacco cessation- Continue varenicline History of Present Illness Chief Complaint: The patient is referred to the emergency department by his outpatient PCP, after having routine laboratories performed, which revealed worsening anemia, and upon arrival to the ED also reported exertional chest discomfort. Primary Care Provider: Jocelyne Meléndez MD The patient is a 54-year-old male with a past medical history including NSTEMI, anemia requiring transfusion, LAD SANCHEZ, ischemic cardiomyopathy, tobacco abuse, CAD, diabetes mellitus type 2, GERD, SNHL bilaterally, hyperlipidemia, and hypertension. Laboratories in the outpatient setting revealed a hemoglobin of 7.5, with repeat in the emergency departments evening 7.8. Troponin was increased to 48.0. EKG did not show any significant change compared to previous. Patient was referred for assessment for admission. Allergies Allergy/AdvReac Type Severity Reaction Status Date / Time No Known Allergies Allergy Verified 07/28/24 20:45 Home Medications Medication Instructions Recorded Confirmed Type sildenafil 50 mg tablet See Rx Instructions PO DAILY PRN 02/29/24 07/28/24 Rx sexual activity #10 tabs aspirin 81 mg tablet,delayed 81 mg PO QAM #30 tabs 03/24/24 07/28/24 Rx release blood-glucose meter,continuous #1 ea 03/28/24 06/23/24 Rx (Dexcom G7 Business Support Manager) ticagrelor 90 mg tablet (Brilinta) 90 mg PO BID #60 tabs 04/08/24 07/28/24 Rx carvedilol 3.125 mg tablet 3.125 mg PO BID #180 tabs 04/15/24 07/28/24 Rx rosuvastatin 40 mg tablet 40 mg PO DAILY #90 tabs 04/15/24 07/28/24 Rx blood-glucose sensor (Dexcom G7 #3 ea 06/18/24 06/23/24 Rx Sensor device) pantoprazole 40 mg tablet,delayed 40 mg PO DAILY 06/18/24 07/28/24 History release ferrous sulfate 325 mg (65 mg 325 mg PO DAILY #30 tabs 06/20/24 07/28/24 Rx iron) tablet lisinopril 5 mg tablet 2.5 mg (1/2 x 5 mg) PO DAILY #15 06/20/24 07/28/24 Rx tabs famotidine 40 mg tablet 40 mg PO QPM #90 tabs 06/23/24 07/28/24 Rx varenicline 1 mg tablet (Chantix 1 mg PO BID #120 tabs 07/11/24 07/28/24 Rx Continuing Month Box) metformin 500 mg tablet,extended 500 mg PO DAILY #90 tabs 07/18/24 07/28/24 Rx release 24 hr Past Med/Surg History Problem List (Updated 07/29/24 @ 03:38 by Shaheed Dennison MD) Symptomatic anemia Upper gastrointestinal hemorrhage without varices or source of bleeding evident on endoscopy Anemia requiring transfusions Elevated troponin (Acute) Anemia (Acute) Anemia History of ST elevation myocardial infarction (STEMI) Stable angina pectoris Orthostatic hypotension Presence of drug coated stent in LAD coronary artery Ischemic cardiomyopathy Tobacco abuse CAD (coronary artery disease) Type 2 diabetes mellitus (Chronic) Chronic sinusitis (Chronic) GERD (gastroesophageal reflux disease) (Chronic) Sensorineural hearing loss (SNHL) of both ears (Chronic) Hyperlipidemia (Chronic) Hypertension (Chronic) Medical History STEMI (ST elevation myocardial infarction) Pheochromocytoma Surgical History History of cardiac cath History of heart artery stent History of dental surgery Family History Father Cerebral hemorrhage Hypertension Grandmother (Maternal) Diabetes Myocardial infarction Grandfather (Paternal) Myocardial infarction Denies family history of Ovarian cancer Prostate cancer Breast cancer Colorectal cancer Social History Smoking Status: Current every day smoker Tobacco Type: Cigarettes Age Started Using Tobacco: 19; packs per day: 1; Cigarettes Per Day: 6; Second Hand Exposure: No; Do You Dip or Chew Tobacco: No; Hx Alcohol Use: No Hx Substance Use: No Preferred Language: Maldivian Communication Ability: Effective Cheese Production Supervisor Required: No Beliefs That Will Affect Care: None marital status: Current Living Situation: Alone Current Living Situation Comment: lives at home by self current occupational status: employed 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 [employer] Other Information That Helps Us Care for You: No Feels Safe at Home: Yes Safety Concerns: Feels Safe At This Time Diet: diabetic, low salt and regular caffeine: Yes Dental Care, Regularly: Yes Physical Activity Frequency: 1-2 Times per Week Seatbelt Use: always Sunscreen Use: No Assistive Devices: Denture - Upper, Denture - Lower, Glasses and Hearing Aid - Left Review of Systems Review of Systems: The patient denies palpitations, cough, lower extremity swelling, sore throat, fevers, chills, sweats, weight change, fatigue, nausea, vomiting, diarrhea , constipation, abdominal pain, pelvic pain, blood in urine or stool, dysuria, urinary frequency or urgency, lightheadedness, dizziness, headache, memory loss, loss of consciousness, rash, abnormal bruising or bleeding, imbalance, focal or generalized weakness, numbness or tingling in arms or legs, generalized arthralgias or myalgias, back or neck pain, or night sweats. The review of systems is otherwise negative other than for that already noted above, and at least 10 systems have been reviewed. Physical Exam Physical Exam: the patient is awake, alert and oriented 3, well developed and well nourished, normocephalic and atraumatic, lying in bed and in no acute distress. HEENT--PERRL, EOMI, mucous membranes and oropharynx normal Neck--supple. No JVD. No bruits. Thyroid normal, trachea midline, no adenopathy. Heart--normal S1 and S2. No murmurs, rubs or gallops. Lungs--clear bilaterally, no respiratory distress, no accessory muscle use. Abdomen--normal bowel sounds and soft. Nontender. Nondistended, no hernias or masses, no organomegaly. Extremities--no cyanosis or clubbing. No edema. There are good distal pulses b/l. Dermatologic--normal skin turgor, normal color, no abnormal lymph nodes, no rash. Neurologic--cranial nerves II through XII grossly intact. Rheumatologic--normal range of motion. Psychiatric--normal affect. Results & Data Results & Data Vital Signs (Past 12 Hours) Vital Signs Temp Pulse Pulse Resp BP BP Pulse Ox 07/28/24 21:00 87 20 120/67 99 07/28/24 20:30 85 14 105/65 96 07/28/24 20:03 91 H 20 116/70 99 07/28/24 19:33 87 15 98 07/28/24 19:05 89 18 98 07/28/24 19:05 89 18 144/75 H 98 07/28/24 19:05 07/28/24 18:49 90 07/28/24 17:55 36.3 C L 113 H 18 131/72 98 O2 Del Method 07/28/24 21:00 Room Air 07/28/24 20:30 Room Air 07/28/24 20:03 Room Air 07/28/24 19:33 Room Air 07/28/24 19:05 Room Air 07/28/24 19:05 Room Air 07/28/24 19:05 Room Air 07/28/24 18:49 07/28/24 17:55 Room Air Laboratory Results Laboratory Results WBC 7.67 K/ul (4.8-10.8) 07/28/24 18:00 RBC 3.04 M/uL (4.70-6.10) L 07/28/24 18:00 Hgb 7.8 g/dl (14.0-18.0) L 07/28/24 18:00 Hct 25.4 % (42.0-52.0) L 07/28/24 18:00 MCV 83.6 fL (80.0-100.0) 07/28/24 18:00 MCH 25.7 pg (25.0-34.0) 07/28/24 18:00 MCHC 30.7 g/dL (32.0-36.0) L 07/28/24 18:00 RDW Std Deviation 50.8 fL (36.4-46.3) H 07/28/24 18:00 RDW Coeff of Jocelin 16.9 % (11.5-14.5) H 07/28/24 18:00 Plt Count 400 K/uL (130-400) 07/28/24 18:00 MPV 9.5 fL (9.4-12.4) 07/28/24 18:00 PT 10.3 Seconds (9.0-12.0) 07/28/24 18:00 INR 0.9 (0.9-1.1) 07/28/24 18:00 APTT 26 Seconds (21-31) 07/28/24 18:00 PTT Ratio 1.0 07/28/24 18:00 Sodium 138 mmol/L (136-145) 07/28/24 18:00 Potassium 4.4 mmol/L (3.5-5.1) 07/28/24 18:00 Chloride 107 mmol/L (98-107) 07/28/24 18:00 Carbon Dioxide 25 mmol/L (21-32) 07/28/24 18:00 Anion Gap 6 (3-11) 07/28/24 18:00 BUN 22 mg/dl (6-23) 07/28/24 18:00 Creatinine 1.24 mg/dl (0.6-1.4) 07/28/24 18:00 Est Cr Clr Drug Dosing 75.6 ml/min 07/28/24 18:00 eGFR 69.52 07/28/24 18:00 BUN/Creatinine Ratio 17.7 (10-20) 07/28/24 18:00 Glucose 179 mg/dl (70-99(Fasting)) H 07/28/24 18:00 Calcium 9.3 mg/dl (8.6-10.3) 07/28/24 18:00 Total Bilirubin 0.2 mg/dl (0.2-1.0) 07/28/24 18:00 AST 18 U/L (13-39) 07/28/24 18:00 ALT 17 U/L (7-52) 07/28/24 18:00 Alkaline Phosphatase 82 U/L (34-104) 07/28/24 18:00 Troponin I High Sens 52.1 pg/ml (0-20) H* 07/28/24 23:05 Total Protein 6.9 gm/dl (6.0-8.3) 07/28/24 18:00 Albumin 4.5 gm/dl (3.4-5.0) 07/28/24 18:00 Globulin 2.4 gm/dl (2.5-4.0) L 07/28/24 18:00 Albumin/Globulin Ratio 1.9 (0.9-2) 07/28/24 18:00 Blood Type O Negative 07/28/24 18:51 Antibody Screen NEGATIVE 07/28/24 18:51 Crossmatch See Detail 07/28/24 18:51 Code Status & VTE Plan Code Status Full code VTE Prophylaxis Plan VTE Prophylaxis will be ordered: Yes PG Care Time/CCT Total # of Minutes Spent Total Time Spent with Patient: Total time spent is greater than 50% in coordination of care (as documented) at patient's floor/unit and/or counseling patient: Coding Level of Care Code 80868 INT INP/OBS CARE 3/75MIN Diagnoses Symptomatic anemia D64.9 Elevated troponin R79.[address] elevation myocardial infarction (STEMI) I25.2 Presence of drug coated stent in LAD coronary artery Z95.5 Ischemic cardiomyopathy I25.5 Coronary artery disease of [place] artery of [place] heart with stable angina pectoris I25.118 Associated angina: with stable angina Coronary Disease-Associated Artery/Lesion type: [place] artery [place] vs. transplanted heart: [place] heart Type 2 diabetes mellitus E11.9 Primary hypertension I10 Hypertension type: primary hypertension Hyperlipidemia, unspecified hyperlipidemia type E78.5 Hyperlipidemia type: unspecified Anemia requiring transfusions D64.9 Upper gastrointestinal hemorrhage without varices or source of bleeding evident on endoscopy K92.2 (6) CAD (coronary artery disease) Associated angina: with stable angina Coronary Disease-Associated Artery/Lesion type: [place] artery [place] vs. transplanted heart: [place] heart Qualified Code(s): I25.118 - Atherosclerotic heart disease of [place] coronary artery with other forms of angina pectoris (8) Hypertension Hypertension type: primary hypertension Qualified Code(s): I10 - Essential (primary) hypertension (9) Hyperlipidemia Hyperlipidemia type: unspecified Qualified Code(s): E78.5 - Hyperlipidemia, unspecified
[2024-07-28] MEDS ORDERED: GLUCAGON FOR INJ 1 MG VIAL SQ PRN (22:43)
[2024-07-28] MEDS ORDERED: DEXTROSE 50% 50 ML SYRINGE IV PRN (22:43)
[2024-07-28] MEDS ORDERED: CARBOHYDRATES FOR HYPOGLYCEMIA PO PRN (22:43)
[2024-07-28] MEDS ORDERED: ACETAMINOPHEN 325 MG TAB PO PRN (22:43)
[2024-07-28] MEDS ORDERED: ONDANSETRON INJ 2 MG/ML 2 ML VIAL IV PRN (22:43)
[2024-07-28] MEDS ORDERED: GLUCOSE 40% GEL 15 GM TUBE PO PRN (22:43)
[2024-07-28] MEDS ORDERED: GLUCOSE 10 TAB/TUBE PO PRN (22:43)
[2024-07-28] MEDS: TICAGRELOR 90 MG TAB PO SCH (23:57)
--- NOTE | 2024-07-29 06:50 | XRay Report ---
XR chest 1V portable CLINICAL HISTORY: Chest pain. COMPARISON STUDY: Chest CT November 09, 2023. Chest radiograph June 18, 2024 FINDINGS: Lung volumes are normal. Lungs are clear. There is no pneumothorax or pleural effusion. Car diac size is stable. Mediastinal contours are normal. There is no evidence for pulmonary edema. IMPRESSION: No acute cardiopulmonary findings. No change in appearance of the chest. ACT 112: Negative or not required by law. Electronically signed by: Yandel Meléndez M.D. 07/29/2024 6:49 AM
[2024-07-29] MEDS: PANTOprazole 40 MG TAB PO SCH (08:39)
[2024-07-29] MEDS: carvediloL 3.125 MG TAB PO SCH (08:39)
[2024-07-29] MEDS: FERROUS SULFATE 325 MG TAB PO SCH (08:39)
[2024-07-29] MEDS: ASPIRIN 81 MG ECTAB PO SCH (08:39)
[2024-07-29] MEDS: ROSUVASTATIN CALCIUM 20 MG TAB PO SCH (08:40)
[2024-07-29] MEDS: INSULIN ASPART PER UNIT CHARGE SC SCH (09:47)
[2024-07-29 10:34] LABS: BUN Creatinine Ratio 18.2 (10-20); Calcium 9.1 mg/dl (8.6-10.3); Creatinine Clr Calc Pharmacy 94.7 ml/min; Potassium 4.4 mmol/L (3.5-5.1)
[2024-07-29] MEDS: IRON SUCROSE 300 MG in SODIUM CHLORIDE 0.9% 250 ML IV ONE (10:49)
--- NOTE | 2024-07-29 14:31 | Discharge Summary ---
Discharge Summary Date of Service July 29, 2024 Principal Dx & Hospital Course #1 = Principal Diagnosis (1) Symptomatic anemia: Symptomatic anemia requiring transfusion/history of upper GI bleeding- erythematous duodenopathy on EGD on 06-19-24---Colonoscopy on 06/20/2024 was normal No overt bleeding Hemoglobin on 03/24 was 14.2, Hemoglobin on 06/18 was 6.6, Hemoglobin on 06/19 was 8.5 after 2 units PRBCs and he was discharged to home, had once weekly hgbs which were slghtly downtrending, but then he developed angina again with exertion of walking 40-50 feet that went away with rest Hgb here 7.5--> transfused 1 unit PRBCs here and gave IV Venofer 300mg x 1--> hgb up to 8.7 on day of discharge, no further angina Continue famotidine 40 mg p.o. every afternoon and pantoprazole 40 mg p.o. every morning Awaiting video capsule endoscopy as outpt--> our Nurse Navigator checked on referral and helped assist to get this done Unfortunately, we cannot stop his DAPT due to recent LAD stent-ideally at least 6 months which would be in Dec Recommend continuing to check once weekly CBC after discharge, continue outpt IV iron infusions as is already being arranged, and continue po iron as well (2) Elevated troponin: History of STEMI/SANCHEZ in LAD/hypertension/ischemic cardiomyopathy- Patient has had to continue on aspirin and Brilinta, which has promoted continued blood loss Cardiac catheterization on 03/22/2024 with culprit angioplasty and stenting of the LAD Troponin here 48/52.1/53/48 Continue carvedilol 3.125 mg p.o. twice daily, aspirin 81 mg every morning, Brilinta 90 mg p.o. twice daily Continue lisinopril 2.5 mg every morning , statin EKG showing lateral ST depression and T wave inversions similar to previous Of note, pt did have an episode of right sided chest and RUQ pain after eating lunch here that was sharp in nature, lasted 13 min, went away on its own, occurred at rest. No h/o gallstones but suspect could have been a small passing stone-gave precautions to avoid greasy foods (3) Ischemic cardiomyopathy: stable from volume standpoint continue Coreg, lisinopril (4) CAD (coronary artery disease): as above (5) Type 2 diabetes mellitus: resume home metformin Plan Tobacco cessation- Continue varenicline Notes For Next Care Provider Needs once weekly CBC Needs video capsule endoscopy Needs 2 more IV Venofer infusions Medication Changes From Visit None Admission HPI Per Admitting Provider The patient is a 54-year-old male with a past medical history including NSTEMI, anemia requiring transfusion, LAD SANCHEZ, ischemic cardiomyopathy, tobacco abuse, CAD, diabetes mellitus type 2, GERD, SNHL bilaterally, hyperlipidemia, and hypertension. Laboratories in the outpatient setting revealed a hemoglobin of 7.5, with repeat in the emergency departments evening 7.8. Troponin was increased to 48.0. EKG did not show any significant change compared to previous. Patient was referred for assessment for admission. Discharge Exam Constitutional WD/WN, vitals as above Respiratory normal respiratory effort, lungs clear to auscultation Cardiovascular RRR, no murmur, no edema Gastrointestinal (Abdomen) normal bowel sounds, soft, nontender, no hepatosplenomegaly Psychiatric A+Ox3, euthymic affect Discharge Plan Discharge Items Patient Disposition: Home - Self-Care Reason For Visit: SYMPTOMATIC ANEMIA, CHEST PAIN, ELEVATED TROPONIN Discharge Diagnosis: Symptomatic anemia Chest pain-angina Condition on Discharge: Fair Activity: As commented below Lifting: No more than 5 pounds Bathing: No limitations Exercise/Sports: As tolerated Exercise Comment: only light walking Driving/Machine Use: No limitations Non-emergency contact: Primary Care Provider, Organ Fixer and Loan Secretary Call non-emergency contact if: you have any medication questions and your symptoms worsen Follow-up/Referrals: Jocelyne Meléndez MD [Primary Care Provider] - (Follow up within 1-2 weeks) Diet: Carb Consistent or DM2 and Heart Healthy Addtl Attending Provider Instructions: You were admitted for chest pain from your low blood count. You were given a blood transfusion and one IV iron infusion to help improve your blood count. Please continue to get once weekly CBCs through your doctor. Keep taking the iron pills as well and hopefully you will get the video capsule endoscopy done soon. Pending Studies at Discharge: No Stand-Alone Forms: [employer], Smoking Cessation Medications and DC Order Prescriptions: Continued carvedilol 3.125 mg tablet 3.125 mg PO BID Qty: 180 3RF Rx Instructions: must administer with a meal/food rosuvastatin 40 mg tablet 40 mg PO DAILY Qty: 90 3RF (DME) Dexcom G7 Sensor Device See Rx Instructions .Route Qty: 3 3RF Rx Instructions: As directed famotidine 40 mg tablet 40 mg PO QPM Qty: 90 2RF varenicline [Chantix Continuing Month Box] 1 mg tablet 1 mg PO BID Qty: 120 0RF metformin 500 mg tablet extended release 24 hr 500 mg PO DAILY Qty: 90 3RF sildenafil 50 mg tablet See Rx Instructions PO DAILY PRN (Reason: sexual activity) Qty: 10 2RF Rx Instructions: 1-2 orally daily PRN; administer 30 minutes to 4 hours before activity (DME) Dexcom G7 General Magistrate Misc See Rx Instructions .Route Qty: 1 0RF Rx Instructions: As directed Brilinta 90 mg tablet 90 mg PO BID Qty: 60 3RF aspirin 81 mg Tablet,Delayed Release (Dr/Ec) 81 mg PO QAM Qty: 30 0RF pantoprazole 40 mg tablet,delayed release (DR/EC) 40 mg PO DAILY lisinopril 5 mg tablet 2.5 mg PO DAILY Qty: 15 0RF ferrous sulfate 325 mg (65 mg iron) tablet 325 mg PO DAILY Qty: 30 0RF Rx Instructions: [id number] Discharge Orders: Discharge Order (Routine); Ordered 07/29/24 Ordered By: Shweta Henry/Other Patient Handouts: Anemia, Managing Type 2 Diabetes, Iron Supplements Admission Data Admit Date/Time: 07/28/24 21:57 Attending Provider: Shweta Oneil Admit Provider: Shaheed Dennison Primary Care Provider: Jocelyne Meléndez Other Providers: Shaheed Dennison Hospital Stay Data Consultations 07/28/24 20:59 ED Decision to Admit Stat Pending Results Patient Have Any Pending Studies at Discharge: No Discharge Instructions Given to Patient (Per Discharging Provider) You were admitted for chest pain from your low blood count. You were given a blood transfusion and one IV iron infusion to help improve your blood count. Please continue to get once weekly CBCs through your doctor. Keep taking the iron pills as well and hopefully you will get the video capsule endoscopy done soon. Total Time Total Time Spent Total Time Spent (In Minutes): 35 min Total Time Includes: Examination of the Patient, Discharge Planning and Medication Reconciliation Coding Level of Care Code 56660 INP/OBS DISCH >30 MIN Diagnoses Symptomatic anemia D64.9 Elevated troponin R79.89 Ischemic cardiomyopathy I25.5 Coronary artery disease of [place] artery of [place] heart with stable angina pectoris I25.118 Coronary Disease-Associated Artery/Lesion type: [place] artery [place] vs. transplanted heart: [place] heart Associated angina: with stable angina Type 2 diabetes mellitus E11.9
[2024-07-29 14:53] LABS: Basophils # (auto) 0.05 K/uL (0.00-0.20); Basophils % (auto) 0.7 %; Eosinophils # (auto) 0.22 K/uL (0.00-0.50); Eosinophils % (auto) 2.9 %; Hematocrit (blood only) 27.9 % (42.0-52.0); Hemoglobin 8.7 g/dl (14.0-18.0); Immature Granulocytes # (auto) 0.04 K/uL (0.01-0.20); Immature Granulocytes % (auto) 0.5 %; Lymphocytes # (auto) 1.48 K/uL (1.20-3.40); Lymphocytes % (auto) 19.8 %; Mean Corpuscular Hemoglobin 25.6 pg (25.0-34.0); Mean Corpuscular Hgb Conc 31.2 g/dL (32.0-36.0); Mean Corpuscular Volume 82.1 fL (80.0-100.0); Mean Platelet Volume 9.7 fL (9.4-12.4); Monocytes # (auto) 0.68 K/uL (0.11-0.59); Monocytes % (auto) 9.1 %; Platelet Count 334 K/uL (130-400); RDW Coefficient of Variation 16.4 % (11.5-14.5); RDW Standard Deviation 48.9 fL (36.4-46.3); White Blood Count 7.47 K/ul (4.8-10.8)
[2024-07-29 15:20] VITALS: BP 108/75; PULSE 74; RESP 18; TEMP 97.7; O2SAT 97
[2024-07-29] MEDS ORDERED: FAMOTIDINE 40 MG TABLET PO SCH (21:00)
--- NOTE | 2024-07-29 23:08 | Electrocardiogram Report ---
Test Reason : Blood Pressure : */* mmHG Vent. Rate : 96 BPM Atrial Rate : 96 BPM P-R Int : 138 ms QRS Dur : 82 ms QT Int : 342 ms P-R-T Axes : 68 72 -38 degrees QTcB Int : 432 ms Normal sinus rhythm Anteroseptal infarct (cited on or before 09-Nov-2023) Nonspecific ST and T wave abnormality Abnormal ECG When compared with ECG of 18-Jun-2024 18:30, No significant change Confirmed by Medhat Quezada ([id number]) on 07/29/2024 11:07:29 PM Referred By: REFERRED SELF Confirmed By: Medhat Quezada
== END 2024-07-29 15:31 | disposition home or self-care (01) ==
LOC: ED 17:54 → EDINP 17:54 → SUATTDRO 21:57 → 2S 22:43